=== PATIENT | female | born 1960 | race Caucasian/White ===

== ENCOUNTER 2016-09-26 15:12 | Emergency (ER) | payer MEDICARE, MEDICAID ==
[~2016-09-26] VITALS: Ht 162.6 cm; Wt 190.5 kg
[~2016-09-26 15:12] MED LIST: ACET-168 PO; ASP81TEC PO; CETI10CA PO; CETI10TA17 PO; CITA20TA12 PO; CLIN150C17 PO; CLON1TAB PO; CYCL5TAB PO; DILT120C82 PO; DILT180C67 PO; DIPH25TA65 PO; DIVA250T2 PO; DIVA500T PO; DULO30CA3 PO; FERR-65 PO; FERR325T5 PO; FLUT16SP22 NS; FLUT1DIS28 IH; FLUT1DIS28 INH; GABA-488 PO; GABA300C PO; ISM60TCR PO; LEVO750T39 PO; LORA2VIA3 IM; LVT.1T PO; MAG30ORA2 PO; MAGN400O7 PO; METH85CR TP; MIRA25TA PO; MIRA50TA PO; MORP-34 PO; MULT-974 PO; NST15C TOP; ONDN4T PO; OXC20TCR PO; OXCA300T PO; OXYC20TA54 PO; PANT40TA2 PO; POLY17PO6 PO; POTA20TA15 PO; RT-ALBUINH IH; RT-ALBUINH INH; SACC250C9 PO; SLMFT1E INH; SULF1TAB35 PO; TERB12CR3 TP; TORS10TA2 PO; TRAZ-28 PO; TRL300 PO; ZIPR60CA2 PO; ZIPR60CA20 PO
--- OUTSIDE RECORDS SUMMARY | 2016-09-26 15:18 | XMS REPORT | Continuity of Care Document ---
Author Author [facility] Organization [facility] Address Unknown Phone Unavailable Care Team Providers Care Cylinder Handler Name Role Phone No Pcp, Na PCP Unavailable Source Comments Some departments are not documenting in the electronic medical record. If you do not see the information that you expected, contact Release of Information in the Health Information Management department at [phone] for further assistance in locating additional records.[facility] Active Allergies and Adverse Reactions Allergen Noted Date Severity Reactions Comments Asendin 10/30/2012 UNKNOWN Clozaril 10/30/2012 UNKNOWN Haldol 10/30/2012 UNKNOWN Loxitane 10/30/2012 UNKNOWN Moxatag 10/30/2012 UNKNOWN Sulfa (Sulfonamide 10/30/2012 UNKNOWN Antibiotics) Current Medications Prescription Sig. Disp. Refills Start End Date Status Date isosorbide mononitrate SR Take 60 mg by mouth every Active (IMDUR) 60 mg tablet morning. Diltiazem HCl (MATZIM LA) Take 1 Tab by mouth Active 180 mg Tb24 daily. torsemide(+) (DEMADEX) 20 Take 20 mg by mouth Active mg tablet daily. pantoprazole DR Take 40 mg by mouth Active (PROTONIX) 40 mg tablet daily. levothyroxine (SYNTHROID) Take 125 mcg by mouth Active 125 mcg tablet daily. potassium chloride SR Take 20 mEq by mouth Active (K-DUR) 20 mEq tablet twice daily. divalproex ER (DEPAKOTE Take 3 Tabs by mouth at 90 Tab 0 02/02/20 Active ER) 500 mg tablet bedtime daily. 14 gabapentin (NEURONTIN) Take 1 Cap by mouth at 30 Cap 0 02/02/20 Active 300 mg capsule bedtime daily. 14 risperiDONE (RISPERDAL) 3 Take 2 Tabs by mouth at 60 Tab 0 02/02/20 Active mg tablet bedtime daily. 14 albuterol (PROAIR HFA) 90 Inhale 2 Puffs by mouth 3 Inhaler 0 Active mcg/actuation inhaler every 4 hours as needed [address] (CYMBALTA) Take 1 Cap by mouth 30 Cap 0 02/02/20 Active 60 mg capsule daily. 14 Active Problems Problem Noted Date Psychosis 01/08/2014 History of heart attack 10/30/2012 Social History Tobacco Use Types Packs/Day Years Used Date Former Smoker Cigarettes Alcohol Use Drinks/Week oz/Week Comments No Last Filed Vital Signs Vital Sign Reading Time Taken Blood Pressure 119/53 02/01/2014 9:00 AM CDT Pulse 86 02/01/2014 9:00 AM CDT Temperature 36.8 C (98.2 F) 02/01/2014 9:00 AM CDT Respiratory Rate - - Height 1.676 m (5' 6") 01/09/2014 1:25 AM CDT Weight 129.275 kg (285 lb) 01/08/2014 4:41 PM CDT Body Mass Index 46.02 01/08/2014 4:41 PM CDT Oxygen Saturation 95% 01/23/2014 9:30 PM CDT Plan of Care Health Maintenance Due Date Last Done Comments Physical (Comprehensive) 1966 Exam Pertussis Vaccine 1970 Tetanus Vaccine 02/26/1976 Cervical Cancer Screening 02/26/1980 Breast Cancer Screening 1999 Colorectal Cancer 2009 Screening Influenza Vaccine 04/29/2016 Results from Last 3 Months Not on file
[2016-09-26] MEDS ORDERED: LORazepam INJ 2 MG/ML (ATIVAN) VIAL IVP ONE (15:30)
[2016-09-26] MEDS ORDERED: LORazepam INJ 2 MG/ML (ATIVAN) VIAL ONE (15:32)
--- NOTE | 2016-09-26 15:32 | ED Chest Pain ---
General Stated Complaint: PNEUMONIA Source: patient Exam Limitations: no limitations History of Present Illness Time seen by provider: 15:31 Initial Comments To ER with central chest pain, hernia pain in the right lower abdomen and shortness of breath. She arrives per EMS from the living [facility]. The chest pain started yesterday. It has been constant since last night and she states that it is worsened by "stress" and "taking a dry off a cigarette". She knew that she was sick when she didn't want to eat and didn't feel like going outside to smoke she states. No fevers. No cough. Pain does not radiate. She arrives tearful and crying stating that she does not want to be in the shelter anymore. Timing/Duration: 1-2 days Severity/Quality: moderate Location: central Radiation: no radiation Activities at Onset: none ASA po COMMUNICATIONS ANALYST: Yes (324 mg was given by EMS) NTG SL COMMUNICATIONS ANALYST: No Associated Symptoms: No nausea/vomiting Allergies and Home Medications Allergies Coded Allergies: Sulfa (Sulfonamide Antibiotics) (Unverified Allergy, Unknown, 08/14/16) amoxapine (Unverified Allergy, Unknown, 01/23/16) amoxicillin (Unverified Allergy, Unknown, 01/03/16) amphetamine (Unverified Allergy, Unknown, 08/14/16) aripiprazole (Unverified Allergy, Unknown, 01/03/16) bupropion (Unverified Allergy, Unknown, 01/03/16) chlorpromazine (Unverified Allergy, Unknown, 01/03/16) clozapine (Unverified Allergy, Unknown, 01/03/16) dextroamphetamine (Unverified Allergy, Unknown, 01/03/16) dextromethorphan (Unverified Allergy, Unknown, 01/03/16) furosemide (Unverified Allergy, Unknown, 01/03/16) haloperidol (Unverified Allergy, Unknown, 01/03/16) latex (Unverified Allergy, Unknown, 01/03/16) lavender (Lavandula angustifolia) (Unverified Allergy, Unknown, 01/03/16) lithium (Unverified Allergy, Unknown, 01/03/16) loxapine (Unverified Allergy, Unknown, 01/03/16) meperidine (Unverified Allergy, Unknown, 01/03/16) olanzapine (Unverified Allergy, Unknown, 01/03/16) phentermine (Unverified Allergy, Unknown, 01/03/16) risperidone (Unverified Allergy, Unknown, 01/03/16) Home Medications Acetaminophen 500 Mg Tablet 1,000 MG PO Q4H PRN PRN PAIN/FEVER (Reported) Do not exceed 3 gm in 24 hours. Albuterol Sulfate 18 Gm Hfa.aer.ad 1 PUFF IH Q6H PRN PRN SHORTNESS OF BREATH ( Reported) Aspirin 81 Mg Tabec 81 MG PO DAILY (Reported) Cetirizine HCl 10 Mg Tablet 10 MG PO DAILY (Reported) Citalopram Hydrobromide 20 Mg Tablet 20 MG PO DAILY (Reported) Clonazepam 1 Mg Tablet 1 MG PO TID (Reported) Cyclobenzaprine HCl 5 Mg Tablet 5 MG PO BID (Reported) Diltiazem HCl 180 Mg Cap.er.24h 180 MG PO DAILY (Reported) Diphenhydramine HCl 25 Mg Tablet 25 MG PO Q6H PRN PRN ALLERGIES (Reported) Divalproex Sodium 250 Mg Tablet.dr 250 MG PO EVERY AFTERNOON (Reported) Divalproex Sodium 500 Mg Tablet.dr 500 MG PO BID (Reported) Duloxetine HCl 30 Mg Capsule.dr 30 MG PO HS (Reported) Duloxetine HCl 30 Mg Capsule.dr 60 MG PO DAILY (Reported) TAKES 2 (30MG) CAPSULES Ferrous Sulfate 325 Mg Tablet 325 MG PO TID (Reported) Fluticasone Propionate 16 Gm Felt.susp 2 SPRAYS NS DAILY (Reported) Fluticasone/Salmeterol 1 Each Blst.w.dev 1 PUFF INH BID (Reported) Gabapentin 300 Mg Capsule 300 MG PO 0800,1400 (Reported) Gabapentin 300 Mg Capsule 600 MG PO HS (Reported) TAKES 2 (300MG) CAPSULES Isosorbide Mononitrate 60 Mg Tab 60 MG PO DAILY (Reported) Levofloxacin 750 Mg Tablet #10 750 MG PO DAILY Prescribed by: MICHAEL ARENAS on 08/16/16 1404 Levothyroxine Sodium 100 Mcg Tab 100 MCG PO DAILY (Reported) Lorazepam 2 Mg/1 Ml Vial 2 MG IM Q4H PRN PRN ANXIETY (Reported) Mag Hydrox/Al Hydrox/Simeth 30 Ml Oral.susp 30 ML PO Q4H PRN PRN INDIGESTION ( Reported) Magnesium Hydroxide 400 Mg/5 Ml Oral.susp 30 ML PO DAILY PRN PRN CONSTIPATION ( Reported) Methyl Salicylate/Menthol 85 Gm Cream..g. TP Q4H PRN PRN PAIN (Reported) Mirabegron 50 Mg Tab.er.24h 50 MG PO HS (Reported) Morphine Sulfate 30 Mg Tablet.er 30 MG PO TID (Reported) Multivitamin 1 Each Tablet 1 TAB PO DAILY (Reported) Ondansetron HCl 4 Mg Tab 4 MG PO BID PRN PRN NAUSEA (Reported) Oxcarbazepine 300 Mg Tablet 300 MG PO BID (Reported) Pantoprazole Sodium 40 Mg Tablet.dr 40 MG PO BID (Reported) Polyethylene Glycol 3350 17 Gm Powd.pack 17 GM PO DAILY PRN PRN CONSTIPATION ( Reported) Potassium Chloride 20 Meq Tab.er.prt 20 MEQ PO DAILY (Reported) Saccharomyces Boulardii 250 Mg Capsule 250 MG PO DAILY (Reported) Torsemide 10 Mg Tablet 10 MG PO DAILY (Reported) Trazodone HCl 50 Mg Tablet 50 MG PO HS (Reported) Ziprasidone HCl 60 Mg Capsule 60 MG PO BID (Reported) Review of Systems Constitutional: see HPI EENTM: No Symptoms Reported Respiratory: No Symptoms Reported Cardiovascular: See HPI Chest Pain Gastrointestinal: See HPI Genitourinary: No Symptoms Reported Skin: no symptoms reported Psychiatric/Neurological: No Symptoms Reported Endocrine: No Symptoms Reported Hematologic/Lymphatic: No Symptoms Reported Past Mtotqti-Zedllb-Ebjbcq Hx Patient Social History Type Used: Cigarettes 2nd Hand Smoke Exposure: No Recent Hopitalizations: No Immunizations Up To Date Tetanus Booster (TDap): Unknown Date of Influenza Vaccine: May 29, 2015 Seasonal Allergies Seasonal Allergies: No Surgeries HX Surgeries: Yes (cervix) Surgeries: Tubal Ligation Respiratory Hx Respiratory Disorders: No Respiratory Disorders: COPD Cardiovascular Hx Cardiac Disorders: No Cardiac Disorders: Atrial Fibrillation, Heart Attack, Hypertension Neurological Hx Neurological Disorders: No Neurological Disorders: Stroke Reproductive System Hx Reproductive Disorders: No Sexually Transmitted Disease: No HIV/AIDS: No 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 Genitourinary Hx Genitourinary Disorders: Yes Genitourinary Disorders: Renal Failure Gastrointestinal Hx Gastrointestinal Disorders: No Musculoskeletal Hx Musculoskeletal Disorders: Yes (SPINAL STENOSIS) Musculoskeletal Disorders: Back Injury Endocrine Hx Endocrine Disorders: Yes Endocrine Disorders: Hypothyroidsim HEENT HX ENT Disorders: No Cancer Hx Cancer: Yes Cancer: Skin Psychosocial Hx Psychiatric Problems: Yes Behavioral Health Disorders: Anxiety, PTSD, Bipolar, Depression Integumentary HX Skin/Integumentary Disorder: No Blood Transfusions Hx Blood Disorders: No Adverse Reaction to a Blood Tr: No Family Medical History Significant Family History: No Pertinent Family Hx, Heart Disease, Cancer, Cerebral Aneurysm Physical Exam Vital Signs Vital Sign - Last 12Hours Capillary Refill : General Appearance: No Apparent Distress Anxious Obese HEENT: PERRL/EOMI TMs Normal Neck: Full Range of Motion Normal Inspection Respiratory: Lungs Clear Normal Breath Sounds No Accessory Muscle Use No Respiratory Distress Cardiovascular: Regular Rate, Rhythm Normal Peripheral Pulses Gastrointestinal: Normal Bowel Sounds Non Tender Soft Other (there is a large ventral abdominal hernia that is reducible) Extremity: Normal Capillary Refill Normal Inspection Neurologic/Psychiatric: Alert Oriented x3 No Motor/Sensory Deficits Skin: Normal Color Warm/Dry Progress/Results/Core Measures Results/Orders Lab Results Laboratory Tests Test 09/26/16 15:26 09/26/16 15:55 Range/Units Urine Bacteria MODERATE H /HPF Urine Bilirubin NEGATIVE NEGATIVE Urine Casts NONE /LPF Urine Clarity SLIGHTLY CLOUDY Urine Color YELLOW Urine Crystals NONE /LPF Urine Culture Indicated YES Urine Glucose (UA) NEGATIVE NEGATIVE Urine Ketones NEGATIVE NEGATIVE Urine Leukocyte Esterase 3+ H NEGATIVE Urine Mucus NEGATIVE /LPF Urine Nitrite NEGATIVE NEGATIVE Urine Protein NEGATIVE NEGATIVE Urine RBC RARE /HPF Urine RBC (Auto) 1+ H NEGATIVE Urine Specific [place] 1.005 L 1.016-1.022 Urine Squamous Epithelial Cells 5-10 /HPF Urine Urobilinogen NORMAL NORMAL MG/DL Urine WBC 10-25 H /HPF Urine pH 7 5-9 Alanine Aminotransferase (ALT/SGPT) 11 0-55 U/L Albumin 3.3 3.2-4.5 G/DL Alkaline Phosphatase 68 40-136 U/L Anion Gap 8 5-14 MMOL/L Aspartate Amino Transf (AST/SGOT) 15 5-34 U/L B-Type Natriuretic Peptide 58.8 <100.0 PG/ML BUN/Creatinine Ratio 22 Basophils # (Auto) 0.0 0.0-0.1 10^3/uL Basophils (%) (Auto) 0 0-10 % Blood Urea Nitrogen 16 7-18 MG/DL Calcium Level 8.5 8.5-10.1 MG/DL Carbon Dioxide Level 33 H 21-32 MMOL/L Chloride Level 97 L 98-107 MMOL/L Creatinine 0.72 0.60-1.30 MG/DL Eosinophils # (Auto) 0.2 0.0-0.3 10^3/uL Eosinophils (%) (Auto) 3 0-10 % Estimat Glomerular Filtration Rate > 60 Glucose Level 116 H 70-105 MG/DL Hematocrit 37 35-52 % Hemoglobin 11.5 11.5-16.0 G/DL Lymphocytes # (Auto) 1.3 1.0-4.0 X 10^3 Lymphocytes (%) (Auto) 18 12-44 % Mean Corpuscular Hemoglobin 31 25-34 PG Mean Corpuscular Hemoglobin Concent 31 L 32-36 G/DL Mean Corpuscular Volume 100 H 80-99 FL Mean Platelet Volume 8.8 7.4-10.4 FL Monocytes # (Auto) 0.8 0.0-1.0 X 10^3 Monocytes (%) (Auto) 11 0-12 % Neutrophils # (Auto) 4.8 1.8-7.8 X 10^3 Neutrophils (%) (Auto) 68 42-75 % Platelet Count 152 130-400 10^3/uL Potassium Level 4.4 3.6-5.0 MMOL/L Red Blood Count 3.68 L 4.35-5.85 10^6/uL Red Cell Distribution Width 14.5 10.0-14.5 % Sodium Level 138 135-145 MMOL/L Total Bilirubin 0.2 0.1-1.0 MG/DL Total Protein 7.5 6.4-8.2 G/DL Troponin I < 0.30 <0.30 NG/ML White Blood Count 7.1 4.3-11.0 10^3/uL My Orders Orders-YANA TOUSSAINT APRN Cbc With Automated Diff (09/26/16 15:29) Comprehensive Metabolic Panel (09/26/16 15:29) Ua Culture If Indicated (09/26/16 15:29) Ekg Tracing (09/26/16 15:29) Troponin I (09/26/16 15:29) Chest 1 View, Ap/Pa Only (09/26/16 15:29) BNP (09/26/16 15:29) Saline Lock/Iv-Start (09/26/16 15:29) Lorazepam Injection (Ativan Injection) (09/26/16 15:30) Urine Culture (09/26/16 15:26) Ceftriaxone Injection (Rocephin Injectio (09/26/16 16:15) Torsemide Tablet (Demadex Tablet) (09/26/16 16:30) Torsemide Tablet (Demadex Tablet) (09/26/16 16:45) Medications Given in ED Current Medications Medications Dose Ordered Sig/Flavio Route Start Time Stop Time Status Last Admin Dose Admin Lorazepam 0.5 mg ONCE ONCE IVP 09/26/16 15:30 09/26/16 15:32 DC 09/26/16 15:37 0.5 MG Vital Signs/I&O Vital Sign - Last 12Hours 09/26/16 09/26/16 15:15 15:15 Temp 97.8 Pulse 76 Resp 20 B/P 118/73 Pulse Ox 99 O2 Delivery Nasal Cannula Nasal Cannula O2 Flow Rate 3.5 3.5 Diagnostic Imaging Diagonstic Imaging: Xray Plain Films/CT/US/NM/MRI: chest Comments NAME: ALVARO PAGAN [facility] REC#: [id number] PT STATUS: REG ER : 1960 PHYSICIAN: YANA TOUSSAINT APRN ADMIT DATE: 09/26/16/ER Draft Date of Exam:09/26/16 CHEST 1 VIEW, AP/PA ONLY INDICATION: Shortness of air. TECHNIQUE: Single view chest, 4:02 p.m. CORRELATION STUDY: 08/14/2016. FINDINGS: Patient is rotated on this study. There is relatively stable cardiac enlargement. Vasculature, however, is increased from prior study with mild perihilar edema. Lung villagran are relatively clear. IMPRESSION: Vasculature is increased since prior study compatible with fluid overload or failure. Dictated on workstation # [id number] Dict: 09/26/16 1620 Trans: 09/26/16 1622 [facility] [id number] Interpreted by: COLE HORNER DO Electronically signed by: Departure Communication Progress Notes 1637-patient is much more relaxed after 0.5 mg IV Ativan. Impression Impression: Primary Impression: Urinary tract infection Qualified Code: N30.00 - Acute cystitis without hematuria Additional Impression: Anxiety Disposition: 01 HOME, SELF-CARE Condition: Stable Departure-Patient Inst. Decision time for Depature: 16:36 Referrals: FRANNY HUMPHREY MD (PCP/Family) Primary Care Physician Patient Instructions: Urinary Tract Infection, Adult (DC) Add. Discharge Instructions: 1. Return to ER for any concerns 2. Antibiotics as directed Scripts Cefuroxime Axetil (Cefuroxime)500 Mg [id number] Mg PO BID #10 TAB Prov:YANA TOUSSAINT APRN 09/26/16 YANA TOUSSAINT APRN Sep 26, 2016 15:32
[2016-09-26 15:36] LABS: BILIRUBIN,URINE NEGATIVE (NEGATIVE); KETONES,URINE NEGATIVE (NEGATIVE); LEUKOCYTE ESTERASE ,URINE 3+ (NEGATIVE); NITRITE,URINE NEGATIVE (NEGATIVE); PH,URINE 7 (5-9); PROTEIN,URINE NEGATIVE (NEGATIVE); UROBILINOGEN,URINE NORMAL (NORMAL)
[2016-09-26 16:02] LABS: BASOPHILS % (AUTO) 0 % (0-10); EOSINOPHILS # (AUTO) 0.2 10^3/uL (0.0-0.3); EOSINOPHILS % (AUTO) 3 % (0-10); LYMPHOCYTES # (AUTO) 1.3 X 10^3 (1.0-4.0); LYMPHOCYTES % (AUTO) 18 % (12-44); MEAN CORPUSCULAR HEMOGLOBIN 31 PG (25-34); MEAN CORPUSCULAR HGB CONC 31 G/DL (32-36); MEAN CORPUSCULAR VOLUME 100 FL (80-99); MEAN PLATELET VOLUME 8.8 FL (7.4-10.4); MONOCYTES # (AUTO) 0.8 X 10^3 (0.0-1.0); MONOCYTES % (AUTO) 11 % (0-12); NEUTROPHILS # (AUTO) 4.8 X 10^3 (1.8-7.8); NEUTROPHILS % (AUTO) 68 % (42-75); PLATELET COUNT 152 10^3/uL (130-400); RED BLOOD COUNT 3.68 10^6/uL (4.35-5.85); RED CELL DISTRIBUTION WIDTH 14.5 % (10.0-14.5); WHITE BLOOD COUNT 7.1 10^3/uL (4.3-11.0)
[2016-09-26] MEDS ORDERED: cefTRIAXone INJECTION 1,000 MG in NORMAL SALINE (BAXTER MINI) 50 ML IV ONE (16:15)
--- NOTE | 2016-09-26 16:22 | Diagnostic Imaging Report ---
INDICATION: Shortness of air. TECHNIQUE: Single view chest, 4:02 p.m. CORRELATION STUDY: 08/14/2016. FINDINGS: Patient is rotated on this study. There is relatively stable cardiac enlargement. Vasculature, however, is increased from prior study with mild perihilar edema. Lung villagran are relatively clear. IMPRESSION: Vasculature is increased since prior study compatible with fluid overload or failure. Dictated by: Dictated on workstation # [id number]
[2016-09-26 16:25] LABS: ALANINE AMINOTRANSFERASE 11 U/L (0-55); ALBUMIN 3.3 G/DL (3.2-4.5); ANION GAP 8 MMOL/L (5-14); ASPARTATE AMINO TRANSFERASE 15 U/L (5-34); BILIRUBIN,TOTAL 0.2 MG/DL (0.1-1.0); BLOOD UREA NITROGEN 16 MG/DL (7-18); BUN/CREATININE RATIO 22; CALCIUM 8.5 MG/DL (8.5-10.1); CARBON DIOXIDE 33 MMOL/L (21-32); CHLORIDE 97 MMOL/L (98-107); CREATININE SERUM 0.72 MG/DL (0.60-1.30); GFR ESTIMATED > 60; GLUCOSE 116 MG/DL (70-105); POTASSIUM 4.4 MMOL/L (3.6-5.0); SODIUM 138 MMOL/L (135-145); TOTAL PROTEIN 7.5 G/DL (6.4-8.2)
[2016-09-26 16:30] LABS: TROPONIN I < 0.30 NG/ML (<0.30)
[2016-09-26] MEDS ORDERED: TORSEMIDE 20 MG (DEMADEX) TAB PO ONE ×2 (16:30→16:45)
[2016-09-26] MEDS ORDERED: CEFU500T63 PO (16:37)
[2016-09-26 16:53] VITALS: BP 128/74
== END 2016-09-26 17:40 | disposition home or self-care (01) ==
LOC: EDUNIT# 15:12 → ER 15:14
DX: N39.0 Urinary tract infection, site not specified (principal); F41.9 Anxiety disorder, unspecified; K43.9 Ventral hernia without obstruction or gangrene; I10 Essential (primary) hypertension; I48.2 Chronic atrial fibrillation; R06.02 Shortness of breath; Z79.82 Long term (current) use of aspirin; Z79.899 Other long term (current) drug therapy
CPT/HCPCS: 36415; 71010; 80053; 81000; 83880; 84484; 85025; 87077; 87088; 87186; 93005; 96365; 96375

== ENCOUNTER 2017-02-04 09:36 | Emergency (ER) | payer MEDICARE, MEDICAID ==
[~2017-02-04] VITALS: Ht 162.6 cm; Wt 195.0 kg
[~2017-02-04 09:36] MED LIST changes: +CEFU500T63 PO
[2017-02-04 10:29] LABS: BILIRUBIN,URINE NEGATIVE (NEGATIVE); KETONES,URINE 2+ (NEGATIVE); LEUKOCYTE ESTERASE ,URINE 1+ (NEGATIVE); NITRITE,URINE NEGATIVE (NEGATIVE); PH,URINE 6 (5-9); PROTEIN,URINE 2+ (NEGATIVE); UROBILINOGEN,URINE NORMAL (NORMAL)
[2017-02-04 10:36] LABS: WBC,URINE 0-2 /HPF
[2017-02-04 10:40] LABS: BASOPHILS # (AUTO) 0.1 10^3/uL (0.0-0.1); BASOPHILS % (AUTO) 1 % (0-10); EOSINOPHILS # (AUTO) 0.2 10^3/uL (0.0-0.3); EOSINOPHILS % (AUTO) 3 % (0-10); LYMPHOCYTES # (AUTO) 1.7 X 10^3 (1.0-4.0); LYMPHOCYTES % (AUTO) 21 % (12-44); MEAN CORPUSCULAR HEMOGLOBIN 32 PG (25-34); MEAN CORPUSCULAR HGB CONC 32 G/DL (32-36); MEAN CORPUSCULAR VOLUME 102 FL (80-99); MEAN PLATELET VOLUME 9.4 FL (7.4-10.4); MONOCYTES # (AUTO) 0.7 X 10^3 (0.0-1.0); MONOCYTES % (AUTO) 9 % (0-12); NEUTROPHILS # (AUTO) 5.5 X 10^3 (1.8-7.8); NEUTROPHILS % (AUTO) 67 % (42-75); PLATELET COUNT 135 10^3/uL (130-400); RED BLOOD COUNT 4.35 10^6/uL (4.35-5.85); RED CELL DISTRIBUTION WIDTH 13.9 % (10.0-14.5); WHITE BLOOD COUNT 8.2 10^3/uL (4.3-11.0)
[2017-02-04 11:02] LABS: ALANINE AMINOTRANSFERASE 21 U/L (0-55); ALBUMIN 3.2 G/DL (3.2-4.5); ANION GAP 12 MMOL/L (5-14); ASPARTATE AMINO TRANSFERASE 23 U/L (5-34); BILIRUBIN,TOTAL 0.3 MG/DL (0.1-1.0); BLOOD UREA NITROGEN 10 MG/DL (7-18); BUN/CREATININE RATIO 15; CALCIUM 8.7 MG/DL (8.5-10.1); CARBON DIOXIDE 30 MMOL/L (21-32); CHLORIDE 98 MMOL/L (98-107); CREATININE SERUM 0.66 MG/DL (0.60-1.30); GFR ESTIMATED > 60; GLUCOSE 101 MG/DL (70-105); POTASSIUM 4.7 MMOL/L (3.6-5.0); SODIUM 140 MMOL/L (135-145); TOTAL PROTEIN 7.4 G/DL (6.4-8.2)
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
--- NOTE | 2017-02-04 12:25 | Diagnostic Imaging Report ---
PROCEDURE: CT abdomen and pelvis without contrast. TECHNIQUE: Multiple contiguous axial images were obtained through the abdomen and pelvis without the use of intravenous contrast. INDICATION: Abdominal pain. Hernia. FINDINGS: Please note that the patient is very large and although the iaygr-ho-wbys is opened to the maximum capacity, a small portion of the abdominal wall on the right and left flanks and including superficial portion of the right lower quadrant hernia are excluded from the [id number]-oz-glfd. The lung bases demonstrate minimal atelectasis. The liver is at low in density compatible with steatosis. There is suggestion of a noncalcified gallstones. This can be better evaluated with ultrasound. The spleen isn't enlarged. There is some motion artifact particularly involving the level of the pancreas with no definite abnormality. The adrenal glands appear unremarkable. The kidneys demonstrate no hydronephrosis and no urinary tract stones are evident. Some pelvic calcifications are noted compatible with phleboliths. There is a calcification in the upper right side aspect of the uterus presumably a calcified fibroid. There is a large right lower quadrant hernia with a relatively narrow neck compared to the size of the hernia. The defect size is 5.3 CM in the transverse plane and 6.8 CM craniocaudally. The hernia contains the right hepatic flexure and multiple small bowel loops without bowel obstruction. There is no bowel wall thickening, fluid or evidence of inflammatory changes to suggest strangulation. The appendix is normal. No significant free fluid or fluid collection in the abdomen or pelvis seen. The abdominal aorta is normal in caliber. The osseous structures demonstrate degenerative changes in the lower lumbar spine. IMPRESSION: 1. There is a large right lower quadrant hernia with a relatively narrow neck, containing small and large bowel loops with no CT evidence of obstruction or strangulation. 2. Suggestion of noncalcified gallstones. This can be better evaluated with gallbladder ultrasound as needed. Dictated by: Dictated on workstation # [id number]
[2017-02-04] MEDS ORDERED: POLY17PO6 PO (13:25)
[2017-02-04] MEDS ORDERED: BISA10EN RC (13:25)
[2017-02-04 13:57] VITALS: BP 152/90
== END 2017-02-04 13:57 | disposition home or self-care (01) ==
LOC: EDUNIT# 09:36 → ER 09:37
DX: K59.00 Constipation, unspecified (principal); R41.82 Altered mental status, unspecified; K46.9 Unspecified abdominal hernia without obstruction or gangrene; I48.91 Unspecified atrial fibrillation; I10 Essential (primary) hypertension; I25.2 Old myocardial infarction; Z86.73 Personal history of transient ischemic attack (TIA), and cerebral infarction without residual deficits; E03.9 Hypothyroidism, unspecified; N19 Unspecified kidney failure; Z86.74 Personal history of sudden cardiac arrest
CPT/HCPCS: 36415; 51701; 74176; 80053; 81000; 83605; 85025

== ENCOUNTER 2017-04-24 13:06 | Emergency (ER) | payer MEDICARE, MEDICAID ==
[~2017-04-24] VITALS: Ht 160 cm; Wt 186.0 kg
[~2017-04-24 13:06] MED LIST changes: +BISA10EN RC
[2017-04-24 14:15] VITALS: BP 143/86
[2017-04-24] MEDS ORDERED: NS IV 1000 ML 1,000 ML IV ONE (15:33)
--- NOTE | 2017-04-24 15:50 | ED Neurological Problem ---
General Chief Complaint: Neurological Problems Stated Complaint: UNRESPONSIVE Nursing Triage Note: TO ED PER EMS FROM [facility]. THEY REPORT SINCE 8A TODAY HAS HAD DECREASED LOC. AND ON ADMIT PATIENT APPEARS LETHARGIC,BUT ANSWERS SHE KNOWS SHE IS AT [facility]. Nursing Sepsis Screen: No Definite Risk Source: patient Exam Limitations: other (difficult to keep focused. poor historian.) History of Present Illness Time seen by provider: 15:45 Initial Comments 57-year-old female patient presents to the emergency Department with reports of medical electronic staff noting decreased level of consciousness beginning at 0800. Patient was brought to the emergency department via EMS. Patient denies knowing why she is at via [facility]. Patient is a poor historian. Patient repeatedly asks where her friend Sanjana is. States she is hungry and thirst. "I want something to eat now!" Timing/Duration: other (0800 this AM. Resolved.) Associated Symptoms: denies symptoms Allergies and Home Medications Allergies Coded Allergies: Sulfa (Sulfonamide Antibiotics) (Unverified Allergy, Unknown, 08/14/16) amoxapine (Unverified Allergy, Unknown, 01/23/16) amoxicillin (Unverified Allergy, Unknown, 01/03/16) amphetamine (Unverified Allergy, Unknown, 08/14/16) aripiprazole (Unverified Allergy, Unknown, 01/03/16) bupropion (Unverified Allergy, Unknown, 01/03/16) chlorpromazine (Unverified Allergy, Unknown, 01/03/16) clozapine (Unverified Allergy, Unknown, 01/03/16) dextroamphetamine (Unverified Allergy, Unknown, 01/03/16) dextromethorphan (Unverified Allergy, Unknown, 01/03/16) furosemide (Unverified Allergy, Unknown, 01/03/16) haloperidol (Unverified Allergy, Unknown, 01/03/16) latex (Unverified Allergy, Unknown, 01/03/16) lavender (Lavandula angustifolia) (Unverified Allergy, Unknown, 01/03/16) lithium (Unverified Allergy, Unknown, 01/03/16) loxapine (Unverified Allergy, Unknown, 01/03/16) meperidine (Unverified Allergy, Unknown, 01/03/16) olanzapine (Unverified Allergy, Unknown, 01/03/16) phentermine (Unverified Allergy, Unknown, 01/03/16) risperidone (Unverified Allergy, Unknown, 01/03/16) Home Medications Acetaminophen 500 Mg Tablet, 1,000 MG PO Q4H PRN for PAIN/FEVER, (Reported) Do not exceed 3 gm in 24 hours. Albuterol Sulfate 18 Gm Hfa.aer.ad, 1 PUFF IH Q6H PRN for SHORTNESS OF BREATH, ( Reported) Aspirin 81 Mg Tabec, 81 MG PO DAILY, (Reported) Bisacodyl 10 Mg/30 Ml Enema, 10 MG RC DAILY PRN, #10 Ref 0 Prescribed by: CAROL FLOR on 02/04/17 1325 Cefuroxime Axetil 500 Mg Tablet, 500 MG PO BID, #10 Prescribed by: YANA TOUSSAINT on 09/26/16 1637 Cetirizine HCl 10 Mg Tablet, 10 MG PO DAILY, (Reported) Citalopram Hydrobromide 20 Mg Tablet, 20 MG PO DAILY, (Reported) Clonazepam 1 Mg Tablet, 1 MG PO TID, (Reported) Cyclobenzaprine HCl 5 Mg Tablet, 5 MG PO BID, (Reported) Diltiazem HCl 180 Mg Cap.er.24h, 180 MG PO DAILY, (Reported) Diphenhydramine HCl 25 Mg Tablet, 25 MG PO Q6H PRN for ALLERGIES, (Reported) Divalproex Sodium 250 Mg Tablet.dr, 250 MG PO EVERY AFTERNOON, (Reported) Divalproex Sodium 500 Mg Tablet.dr, 500 MG PO BID, (Reported) Duloxetine HCl 30 Mg Capsule.dr, 30 MG PO HS, (Reported) Duloxetine HCl 30 Mg Capsule.dr, 60 MG PO DAILY, (Reported) TAKES 2 (30MG) CAPSULES Ferrous Sulfate 325 Mg Tablet, 325 MG PO TID, (Reported) Fluticasone Propionate 16 Gm Douglas.susp, 2 SPRAYS NS DAILY, (Reported) Fluticasone/Salmeterol 1 Each Blst.w.dev, 1 PUFF INH BID, (Reported) Gabapentin 300 Mg Capsule, 300 MG PO 0800,1400, (Reported) Gabapentin 300 Mg Capsule, 600 MG PO HS, (Reported) TAKES 2 (300MG) CAPSULES Isosorbide Mononitrate 60 Mg Tab, 60 MG PO DAILY, (Reported) Levofloxacin 750 Mg Tablet, 750 MG PO DAILY, #10 Ref 0 Prescribed by: MICHAEL ARENAS on 08/16/16 1404 Levothyroxine Sodium 100 Mcg Tab, 100 MCG PO DAILY, (Reported) Lorazepam 2 Mg/1 Ml Vial, 2 MG IM Q4H PRN for ANXIETY, (Reported) Mag Hydrox/Al Hydrox/Simeth 30 Ml Oral.susp, 30 ML PO Q4H PRN for INDIGESTION, ( Reported) Magnesium Hydroxide 400 Mg/5 Ml Oral.susp, 30 ML PO DAILY PRN for CONSTIPATION, (Reported) Methyl Salicylate/Menthol 85 Gm Cream..g., TP Q4H PRN for PAIN, (Reported) Mirabegron 50 Mg Tab.er.24h, 50 MG PO HS, (Reported) Morphine Sulfate 30 Mg Tablet.er, 30 MG PO TID, (Reported) Multivitamin 1 Each Tablet, 1 TAB PO DAILY, (Reported) Ondansetron HCl 4 Mg Tab, 4 MG PO BID PRN for NAUSEA, (Reported) Oxcarbazepine 300 Mg Tablet, 300 MG PO BID, (Reported) Pantoprazole Sodium 40 Mg Tablet.dr, 40 MG PO BID, (Reported) Polyethylene Glycol 3350 17 Gm Powd.pack, 17 GM PO DAILY PRN for CONSTIPATION, ( Reported) Polyethylene Glycol 3350 17 Gm Powd.pack, 17 GM PO QID for 7 Days, #1 Ref 0 Prescribed by: CAROL FLOR on 02/04/17 1325 Potassium Chloride 20 Meq Tab.er.prt, 20 MEQ PO DAILY, (Reported) Saccharomyces Boulardii 250 Mg Capsule, 250 MG PO DAILY, (Reported) Torsemide 10 Mg Tablet, 10 MG PO DAILY, (Reported) Trazodone HCl 50 Mg Tablet, 50 MG PO HS, (Reported) Ziprasidone HCl 60 Mg Capsule, 60 MG PO BID, (Reported) Constitutional: No chills, No dizziness, No fever, No malaise Eyes: No Symptoms Reported Ears, Nose, Mouth, Throat: no symptoms reported Respiratory: No cough, No phlegm, No short of breath Cardiovascular: No chest pain, No palpitations Gastrointestinal: No abdominal pain, No constipation, No diarrhea, No loss of appetite, No nausea, No vomiting Genitourinary: no symptoms reported Musculoskeletal: no symptoms reported Skin: no symptoms reported Psychiatric/Neurological: See HPI, Denies Cognitive Dysfunction, Denies Headache, Denies Numbness, Denies Pet[place] Mal Seizures, Denies Tonic Clonic Seizures, Denies Unable to Move Lower Ext, Denies Unable to Move Upper Ext, Denies Weakness All Other Systems Reviewed Negative Unless Noted: Yes (Negative excepted noted.) Past Yzalbpx-Dafnrx-Xryqos Hx Patient Social History Alcohol Use: Denies Use Recreational Drug Use: No Type Used: Cigarettes Former Smoker, Quit: Aug 29, 2016 2nd Hand Smoke Exposure: No Recent Foreign Travel: No Contact w/Someone Who Travel: No Recent Infectious Disease Expo: No Recent Hopitalizations: No Immunizations Up To Date Tetanus Booster (TDap): Unknown Date of Influenza Vaccine: May 29, 2016 Seasonal Allergies Seasonal Allergies: No Surgeries History of Surgeries: Yes (cervix) Surgeries: Tubal Ligation Respiratory History of Respiratory Disorde: No Respiratory Disorders: COPD Currently Using CPAP: No (supposed to but doesn't) Cardiovascular History of Cardiac Disorders: No (2 Mi's) Cardiac Disorders: Atrial Fibrillation, Heart Attack, Hypertension Neurological History of Neurological Disord: No Neurological Disorders: Stroke Reproductive System Hx Reproductive Disorders: No Sexually Transmitted Disease: No HIV/AIDS: 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 Genitourinary Genitourinary Disorders: Renal Failure Gastrointestinal History of Gastrointestinal Di: No Musculoskeletal History of Musculoskeletal Dis: Yes (SPINAL STENOSIS) Musculoskeletal Disorders: Back Injury Endocrine History of Endocrine Disorders: Yes Endocrine Disorders: Hypothyroidsim Cancer History of Cancer: Yes Cancer: Skin Psychosocial History of Psychiatric Problem: Yes Behavioral Health Disorders: Anxiety, PTSD, Bipolar, Depression Integumentary History of Skin or Integumenta: No Blood Transfusions History of Blood Disorders: No Adverse Reaction to a Blood Tr: No Reviewed Nursing Assessment Reviewed/Agree w Nursing PMH: Yes Family Medical History Significant Family History: No Pertinent Family Hx, Heart Disease, Cancer, Cerebral Aneurysm Physical Exam Vital Signs Vital Sign - Last 12Hours 04/24/17 04/24/17 13:06 19:02 Temp 97.5 Pulse 74 Resp 18 B/P (MAP) 156/100 Pulse Ox 95 O2 Delivery Nasal Cannula O2 Flow Rate 2.00 Capillary Refill : Less Than 3 Seconds General Appearance: WD/WN, no apparent distress, other (morbid obesity.) HEENT: PERRL/EOMI, normal ENT inspection, TMs normal, pharynx normal, other ( oral mucosa dry) Neck: supple, normal inspection Respiratory: lungs clear, normal breath sounds, no respiratory distress, no accessory muscle use Cardiovascular: normal peripheral pulses, regular rate, rhythm, no murmur Gastrointestinal: normal bowel sounds, non tender, soft, No distended, hernia ( large non-reducible right upper quadrant hernia noted (per records exam is similar to previous exams). no discoloration or erythema. ) Extremities: no calf tenderness, pedal edema (3+ pedal edema bilaterally with venous stasis changes of the bilateral distal LE's) Neurologic/Psychiatric: alert, normal mood/affect, other (oriented to person and place. NH staff reports this is similar to usual state.) Crainal Nerves: normal hearing, normal speech, PERRL Coordination/Gait: other (patient is able to grasp the call button and remote control. She is able to push the buttons to change the TV channel without difficulty. unable to stand or perform romberg test due to morbid obesity and is bed/wheelchair ridden.) Motor/Sensory: no motor deficit, no sensory deficit, no pronator drift Skin: normal color (normal color with the exception of venous stasis changes of the distal BLE.), warm/dry Progress/Results/Core Measures Results/Orders Lab Results Laboratory Tests Test 04/24/17 16:12 04/24/17 18:00 Range/Units White Blood Count 7.0 4.3-11.0 10^3/uL Red Blood Count 4.29 L 4.35-5.85 10^6/uL Hemoglobin 14.1 11.5-16.0 G/DL Hematocrit 44 35-52 % Mean Corpuscular Volume 102 H 80-99 FL Mean Corpuscular Hemoglobin 33 25-34 PG Mean Corpuscular Hemoglobin Concent 32 32-36 G/DL Red Cell Distribution Width 13.4 10.0-14.5 % Platelet Count 173 130-400 10^3/uL Mean Platelet Volume 8.9 7.4-10.4 FL Neutrophils (%) (Auto) 55 42-75 % Lymphocytes (%) (Auto) 30 12-44 % Monocytes (%) (Auto) 11 0-12 % Eosinophils (%) (Auto) 4 0-10 % Basophils (%) (Auto) 0 0-10 % Neutrophils # (Auto) 3.9 1.8-7.8 X 10^3 Lymphocytes # (Auto) 2.1 1.0-4.0 X 10^3 Monocytes # (Auto) 0.7 0.0-1.0 X 10^3 Eosinophils # (Auto) 0.3 0.0-0.3 10^3/uL Basophils # (Auto) 0.0 0.0-0.1 10^3/uL Sodium Level 141 135-145 MMOL/L Potassium Level 4.5 3.6-5.0 MMOL/L Chloride Level 100 98-107 MMOL/L Carbon Dioxide Level 27 21-32 MMOL/L Anion Gap 14 5-14 MMOL/L Blood Urea Nitrogen 16 7-18 MG/DL Creatinine 0.73 0.60-1.30 MG/DL Estimat Glomerular Filtration Rate > 60 BUN/Creatinine Ratio 22 Glucose Level 100 70-105 MG/DL Calcium Level 9.2 8.5-10.1 MG/DL Total Bilirubin 0.2 0.1-1.0 MG/DL Aspartate Amino Transf (AST/SGOT) 14 5-34 U/L Alanine Aminotransferase (ALT/SGPT) 13 0-55 U/L Alkaline Phosphatase 94 40-136 U/L Total Protein 7.8 6.4-8.2 GM/DL Albumin 3.8 3.2-4.5 GM/DL TSH [place] Testing 1.55 0.35-4.94 UIU/ML Valproic Acid (Depakene) Level 64.6 50.0-100.0 UG/ML Urine Color YELLOW Urine Clarity CLEAR Urine pH 6 5-9 Urine Specific Scenic 1.025 H 1.016-1.022 Urine Protein 1+ H NEGATIVE Urine Glucose (UA) NEGATIVE NEGATIVE Urine Ketones 3+ H NEGATIVE Urine Nitrite NEGATIVE NEGATIVE Urine Bilirubin NEGATIVE NEGATIVE Urine Urobilinogen NORMAL NORMAL MG/DL Urine Leukocyte Esterase NEGATIVE NEGATIVE Urine RBC (Auto) NEGATIVE NEGATIVE Urine RBC NONE /HPF Urine WBC NONE /HPF Urine Squamous Epithelial Cells 10-25 H /HPF Urine Crystals NONE /LPF Urine Bacteria NEGATIVE /HPF Urine Casts NONE /LPF Urine Mucus MODERATE H /LPF Urine Culture Indicated NO My Orders Orders - KESHAV RAMIREZ Cbc With Automated Diff (04/24/17 15:33) Comprehensive Metabolic Panel (04/24/17 15:33) Thyroid Analyzer (04/24/17 15:33) Ua Culture If Indicated (04/24/17 15:33) Saline Lock/Iv-Start (04/24/17 15:33) Valproic Acid (04/24/17 15:33) Ns Iv 1000 Ml (Sodium Chloride 0.9%) (04/24/17 15:33) Ct Head Wo (04/24/17 15:36) Chest 1 View, Ap/Pa Only (04/24/17 15:36) Medications Given in ED Vital Signs/I&O Vital Sign - Last 12Hours 04/24/17 04/24/17 04/24/17 13:06 14:15 19:02 Temp 97.5 Pulse 74 71 69 Resp 18 18 18 B/P (MAP) 156/100 143/86 Pulse Ox 95 98 98 O2 Delivery Nasal Cannula Nasal Cannula Nasal Cannula O2 Flow Rate 2.00 Blood Pressure Mean: 105 Diagnostic Imaging Diagonstic Imaging: CT Plain Films/CT/US/NM/MRI: head Comments The ventricles are normal in size, shape and position. There is no acute parenchymal hemorrhage, edema or mass. There is no extra-axial mass or hemorrhage. Impression: No acute abnormality is seen. Dictated by: Dictated on workstation # [id number] Reviewed: Reviewed by Me (radiology report reviewed by me) Diagonstic Imaging: Xray Plain Films/CT/US/NM/MRI: chest Comments Upright portable chest shows mild cardiomegaly with normal vascularity. The lungs are clear. There is no effusion or pneumothorax. Impression: No acute abnormality is seen with no change from 09/26/16. Dictated by: Dictated on workstation # [id number] Reviewed: Reviewed by Me (radiology report reviewed by me) Departure Communication Progress Notes Patient seen and evaluated. Labs obtained as well as chest x-ray and CT head. Patient was given 1 L of normal saline. Plan for discharge to home with follow- up as an outpatient with Dr. Humphrey. Patient case discussed with Dr. Maurer, he agrees with the plan of care. Impression Impression: Primary Impression: Volume depletion Disposition: 03 SNF Condition: Stable Departure-Patient Inst. Decision time for Depature: 18:41 Referrals: FRANNY HUMPHREY MD (PCP/Family) Primary Care Physician Patient Instructions: Dehydration, Adult (DC) Add. Discharge Instructions: All discharge instructions reviewed with patient and/or family. Voiced understanding. Continue usual medications. Push fluids. Continue usual diet and orders. Follow-up with Dr. Humphrey for recheck this week. Call Tuesday morning for appointment. Return to the emergency department for worsened symptoms, headache, changes in behavior, weakness, facial drooping, or any other concerns. KESHAV RAMIREZ Apr 24, 2017 15:49
[2017-04-24 16:19] LABS: BASOPHILS % (AUTO) 0 % (0-10); EOSINOPHILS # (AUTO) 0.3 10^3/uL (0.0-0.3); EOSINOPHILS % (AUTO) 4 % (0-10); LYMPHOCYTES # (AUTO) 2.1 X 10^3 (1.0-4.0); LYMPHOCYTES % (AUTO) 30 % (12-44); MEAN CORPUSCULAR HEMOGLOBIN 33 PG (25-34); MEAN CORPUSCULAR HGB CONC 32 G/DL (32-36); MEAN CORPUSCULAR VOLUME 102 FL (80-99); MEAN PLATELET VOLUME 8.9 FL (7.4-10.4); MONOCYTES # (AUTO) 0.7 X 10^3 (0.0-1.0); MONOCYTES % (AUTO) 11 % (0-12); NEUTROPHILS # (AUTO) 3.9 X 10^3 (1.8-7.8); NEUTROPHILS % (AUTO) 55 % (42-75); PLATELET COUNT 173 10^3/uL (130-400); RED BLOOD COUNT 4.29 10^6/uL (4.35-5.85); RED CELL DISTRIBUTION WIDTH 13.4 % (10.0-14.5)
[2017-04-24 16:36] LABS: ALANINE AMINOTRANSFERASE 13 U/L (0-55); ALBUMIN 3.8 GM/DL (3.2-4.5); ANION GAP 14 MMOL/L (5-14); ASPARTATE AMINO TRANSFERASE 14 U/L (5-34); BILIRUBIN,TOTAL 0.2 MG/DL (0.1-1.0); BLOOD UREA NITROGEN 16 MG/DL (7-18); BUN/CREATININE RATIO 22; CALCIUM 9.2 MG/DL (8.5-10.1); CARBON DIOXIDE 27 MMOL/L (21-32); CHLORIDE 100 MMOL/L (98-107); CREATININE SERUM 0.73 MG/DL (0.60-1.30); GFR ESTIMATED > 60; GLUCOSE 100 MG/DL (70-105); POTASSIUM 4.5 MMOL/L (3.6-5.0); SODIUM 141 MMOL/L (135-145); TOTAL PROTEIN 7.8 GM/DL (6.4-8.2)
[2017-04-24 16:56] LABS: VALPROIC ACID 64.6 UG/ML (50.0-100.0)
--- NOTE | 2017-04-24 17:02 | Diagnostic Imaging Report ---
PROCEDURE: CT head without contrast. TECHNIQUE: Multiple contiguous axial images were obtained through the brain without the use of intravenous contrast. INDICATION: Headache. Decreased level consciousness The ventricles are normal in size, shape and position. There is no acute parenchymal hemorrhage, edema or mass. There is no extra-axial mass or hemorrhage. Impression: No acute abnormality is seen. Dictated by: Dictated on workstation # [id number]
--- NOTE | 2017-04-24 17:02 | Diagnostic Imaging Report ---
Indication: Short of air Upright portable chest shows mild cardiomegaly with normal vascularity. The lungs are clear. There is no effusion or pneumothorax. Impression: No acute abnormality is seen with no change from 09/26/16. Dictated by: Dictated on workstation # [id number]
[2017-04-24 18:12] LABS: BILIRUBIN,URINE NEGATIVE (NEGATIVE); KETONES,URINE 3+ (NEGATIVE); LEUKOCYTE ESTERASE ,URINE NEGATIVE (NEGATIVE); NITRITE,URINE NEGATIVE (NEGATIVE); PH,URINE 6 (5-9); PROTEIN,URINE 1+ (NEGATIVE); UROBILINOGEN,URINE NORMAL (NORMAL)
[2017-04-24 19:02] VITALS: BP 143/83
--- OUTSIDE RECORDS SUMMARY | 2017-04-25 11:28 | XMS REPORT | Clinical Summary ---
Author Author [facility] Organization [facility] Address Unknown Phone Unavailable Care Team Providers Care Crop Roller Name Role Phone PCP Unavailable Source Comments Some departments are not documenting in the electronic medical record. If you do not see the information that you expected, contact Release of Information in the Health Information Management department at [phone] for further assistance in locating additional records.[facility] Allergies Active Allergy Reactions Severity Noted Date Comments Asendin UNKNOWN 10/30/2012 Clozapine UNKNOWN 10/30/2012 Haloperidol Lactate UNKNOWN 10/30/2012 Loxapine Succinate UNKNOWN 10/30/2012 Amoxicillin UNKNOWN 10/30/2012 Sulfa (Sulfonamide UNKNOWN 10/30/2012 Antibiotics) Current Medications Prescription Sig. Disp. Refills [...] Tabs by mouth at 60 Tab 0 06/06/20 Active mg tablet bedtime daily. 14 albuterol (PROAIR HFA) 90 Inhale 2 Puffs by mouth 3 Inhaler 0 Active mcg/actuation inhaler every 4 hours as needed [address] (CYMBALTA) Take 1 Cap by mouth 30 Cap 0 02/02/20 Active 60 mg capsule daily. 14 Active Problems Problem Noted Date Psychosis 01/08/2014 History of heart attack 10/30/2012 Family History Medical History Relation Name Comments Hypertension Brother Hypertension Brother Hypertension Brother Coronary Artery Disease Father Stroke Father Coronary Artery Disease Mother Relation Name Status Comments Brother Alive Brother Alive Brother Alive Father Mother Sister as a child Sister Alive Sister Alive Sister Alive Sister Alive Social History Tobacco Use Types Packs/Day Years Used Date Former Smoker Cigarettes Alcohol Use Drinks/Week oz/Week Comments No Sex Assigned at Date Recorded Not on file Last Filed Vital Signs Vital Sign Reading Time Taken Blood Pressure 119/53 02/01/2014 9:00 AM CDT Pulse 86 02/01/2014 9:00 AM CDT Temperature 36.8 C (98.2 F) 02/01/2014 9:00 AM CDT Respiratory Rate - - Oxygen Saturation 95% 01/23/2014 9:30 PM CDT Inhaled Oxygen - - Concentration Weight 129.3 kg (285 lb) 01/08/2014 4:41 PM CDT Height 167.6 cm (5' 6") 01/09/2014 1:25 AM CDT Body Mass Index 46 01/08/2014 4:41 PM CDT Plan of Treatment Health Maintenance Due Date Last Done Comments HEPATITIS C SCREENING 1959 PHYSICAL (COMPREHENSIVE) 1966 EXAM PERTUSSIS VACCINE 1970 TETANUS VACCINE 02/26/1976 CERVICAL CANCER SCREENING 1989 BREAST CANCER SCREENING 1999 COLORECTAL CANCER 2009 SCREENING INFLUENZA VACCINE 04/29/2017 Results Not on filefrom Last 3 Months
== END 2017-04-24 19:01 ==
LOC: EDUNIT# 13:06 → ER 13:07
DX: E86.9 Volume depletion, unspecified (principal); I48.91 Unspecified atrial fibrillation; E03.9 Hypothyroidism, unspecified; F41.9 Anxiety disorder, unspecified; F43.10 Post-traumatic stress disorder, unspecified; F31.9 Bipolar disorder, unspecified; I25.2 Old myocardial infarction; I10 Essential (primary) hypertension; J44.9 Chronic obstructive pulmonary disease, unspecified; Z79.82 Long term (current) use of aspirin; Z86.73 Personal history of transient ischemic attack (TIA), and cerebral infarction without residual deficits; Z87.891 Personal history of nicotine dependence; Z98.51 Tubal ligation status
CPT/HCPCS: 36415; 51701; 70450; 71010; 80053; 80164; 81000; 84443; 85025; 96360

== ENCOUNTER → 2017-09-05 | Outpatient (CLI) | payer MEDICARE, MEDICAID ==
--- NOTE | 2017-09-05 14:05 | Diagnostic Imaging Report ---
INDICATION: Screening breast ultrasound as the patient could not tolerate mammography. TECHNIQUE: Multiple Real-time grayscale images were obtained in all 4 quadrants and the retroareolar regions of both breasts. FINDINGS: There is no evidence of a discrete underlying solid or cystic mass in either breast. Both breasts demonstrate relatively heterogeneous underlying fibroglandular tissue. IMPRESSION: Negative bilateral breast ultrasound. Dictated by: Dictated on workstation # [id number]
== END ==
LOC: RAD 13:03
PROVIDERS: ATTEND Nurse Practitioner
DX: N64.4 Mastodynia (principal)

== ENCOUNTER 2017-10-07 20:52 | Inpatient (IN) | payer MEDICARE, MEDICAID ==
[~2017-10-07] VITALS: Ht 160 cm; Wt 186.0 kg
[~2017-10-07 20:52] MED LIST changes: -FLUT16SP22 NS; +FLUT16SP22 NSEACH
[2017-10-07] MEDS ORDERED: NS IV 1000 ML 1,000 ML IV ONE ×2 (21:22→22:29)
[2017-10-07] MEDS ORDERED: CEFEPIME INJECTION 2,000 MG in NS (IVPB) 50 ML IV ONE (21:30)
[2017-10-07] MEDS ORDERED: ACETAMINOPHEN 500 MG TAB (TYLENOL) PO PRN (21:30)
[2017-10-07 21:36] LABS: BASOPHILS % (AUTO) 0 % (0-10); EOSINOPHILS % (AUTO) 0 % (0-10); HEMATOCRIT 39 % (35-52); HEMOGLOBIN 13.5 G/DL (11.5-16.0); LYMPHOCYTES # (AUTO) 2.7 X 10^3 (1.0-4.0); LYMPHOCYTES % (AUTO) 16 % (12-44); MEAN CORPUSCULAR HEMOGLOBIN 35 PG (25-34); MEAN CORPUSCULAR HGB CONC 34 G/DL (32-36); MEAN CORPUSCULAR VOLUME 101 FL (80-99); MEAN PLATELET VOLUME 9.6 FL (7.4-10.4); MONOCYTES # (AUTO) 2.3 X 10^3 (0.0-1.0); MONOCYTES % (AUTO) 14 % (0-12); NEUTROPHILS # (AUTO) 12.1 X 10^3 (1.8-7.8); NEUTROPHILS % (AUTO) 71 % (42-75); PLATELET COUNT 150 10^3/uL (130-400); RED BLOOD COUNT 3.91 10^6/uL (4.35-5.85); RED CELL DISTRIBUTION WIDTH 12.5 % (10.0-14.5); WHITE BLOOD COUNT 17.2 10^3/uL (4.3-11.0)
[2017-10-07 21:38] LABS: INR 1.1 (0.8-1.4); PROTHROMBIN TIME PATIENT 14.1 SEC (12.2-14.7)
[2017-10-07 21:48] LABS: BUN/CREATININE RATIO 17; CARBON DIOXIDE 28 MMOL/L (21-32); CHLORIDE 95 MMOL/L (98-107); CREATININE SERUM 0.71 MG/DL (0.60-1.30); POTASSIUM 3.9 MMOL/L (3.6-5.0); SODIUM 137 MMOL/L (135-145)
[2017-10-07 21:49] LABS: ALANINE AMINOTRANSFERASE 59 U/L (0-55); ALBUMIN 3.4 GM/DL (3.2-4.5); ALKALINE PHOSPHATASE 112 U/L (40-136); BILIRUBIN,TOTAL 0.4 MG/DL (0.1-1.0); CALCIUM 9.4 MG/DL (8.5-10.1); GFR ESTIMATED > 60; GLUCOSE 159 MG/DL (70-105); TOTAL PROTEIN 7.6 GM/DL (6.4-8.2)
--- NOTE | 2017-10-07 22:03 | ED Abdominal Pain ---
General Chief Complaint: Abdominal/GI Problems Stated Complaint: FEVER Nursing Triage Note: ABDOMINAL PAIN, GALL STONES, FEVER Sepsis Screen: No Definite Risk Source of Information: Patient, RN/MD (Frank Ornelas APRN) Exam Limitations: Other (poor historian) History of Present Illness Date Seen by Provider: Oct 07, 2017 Time Seen by Provider: 20:54 Initial Comments 57-year-old female patient presents to the emergency Department with reports of right upper quadrant pain, fever, and an outpatient ultrasound from today showing gallstones, an enlarged gallbladder, and a positive Delong sign. When patient spiked a fever, staff reportedly was concerned about patient being septic and acute cholecystitis. Patient reportedly has had a decreased appetite today. Patient does have a chronic large ventral hernia. Timing/Duration: 1-2 Days, Getting Worse Severity/Quality: Aching, Sharp Location: RUQ Radiation: No Radiation Activities at Onset: None Modifying Factors: Worsens With Eating, Worsens With Movement, Worsens With Palpation Allergies and Home Medications Allergies Coded Allergies: Sulfa (Sulfonamide Antibiotics) (Unverified Allergy, Unknown, 08/14/16) amoxapine (Unverified Allergy, Unknown, 01/23/16) amoxicillin (Unverified Allergy, Unknown, 01/03/16) amphetamine (Unverified Allergy, Unknown, 08/14/16) aripiprazole (Unverified Allergy, Unknown, 01/03/16) bupropion (Unverified Allergy, Unknown, 01/03/16) chlorpromazine (Unverified Allergy, Unknown, 01/03/16) clozapine (Unverified Allergy, Unknown, 01/03/16) dextroamphetamine (Unverified Allergy, Unknown, 01/03/16) dextromethorphan (Unverified Allergy, Unknown, 01/03/16) furosemide (Unverified Allergy, Unknown, 01/03/16) haloperidol (Unverified Allergy, Unknown, 01/03/16) latex (Unverified Allergy, Unknown, 01/03/16) lavender (Lavandula angustifolia) (Unverified Allergy, Unknown, 01/03/16) lithium (Unverified Allergy, Unknown, 01/03/16) loxapine (Unverified Allergy, Unknown, 01/03/16) meperidine (Unverified Allergy, Unknown, 01/03/16) olanzapine (Unverified Allergy, Unknown, 01/03/16) phentermine (Unverified Allergy, Unknown, 01/03/16) risperidone (Unverified Allergy, Unknown, 01/03/16) Home Medications Acetaminophen 500 Mg Tablet, 1,000 MG PO Q4H PRN for PAIN/FEVER, (Reported) Do not exceed 3 gm in 24 hours. Albuterol Sulfate 18 Gm Hfa.aer.ad, 1 PUFF IH Q6H PRN for SHORTNESS OF BREATH, ( Reported) Aspirin 81 Mg Tabec, 81 MG PO DAILY, (Reported) Bisacodyl 10 Mg/30 Ml Enema, 10 MG RC DAILY PRN, #10 Ref 0 Prescribed by: CAROL FLOR on 02/04/17 1325 Cefuroxime Axetil 500 Mg Tablet, 500 MG PO BID, #10 Prescribed by: YANA TOUSSAINT on 09/26/16 1637 Cetirizine HCl 10 Mg Tablet, 10 MG PO DAILY, (Reported) Citalopram Hydrobromide 20 Mg Tablet, 20 MG PO DAILY, (Reported) Clonazepam 1 Mg Tablet, 1 MG PO TID, (Reported) Cyclobenzaprine HCl 5 Mg Tablet, 5 MG PO BID, (Reported) Diltiazem HCl 180 Mg Cap.er.24h, 180 MG PO DAILY, (Reported) Diphenhydramine HCl 25 Mg Tablet, 25 MG PO Q6H PRN for ALLERGIES, (Reported) Divalproex Sodium 250 Mg Tablet.dr, 250 MG PO EVERY AFTERNOON, (Reported) Divalproex Sodium 500 Mg Tablet.dr, 500 MG PO BID, (Reported) Duloxetine HCl 30 Mg Capsule.dr, 30 MG PO HS, (Reported) Duloxetine HCl 30 Mg Capsule.dr, 60 MG PO DAILY, (Reported) TAKES 2 (30MG) CAPSULES Ferrous Sulfate 325 Mg Tablet, 325 MG PO TID, (Reported) Fluticasone Propionate 16 Gm [place]bes.susp, 2 SPRAYS NS DAILY, (Reported) Fluticasone/Salmeterol 1 Each Blst.w.dev, 1 PUFF INH BID, (Reported) Gabapentin 300 Mg Capsule, 300 MG PO 0800,1400, (Reported) Gabapentin 300 Mg Capsule, 600 MG PO HS, (Reported) TAKES 2 (300MG) CAPSULES Isosorbide Mononitrate 60 Mg Tab, 60 MG PO DAILY, (Reported) Levofloxacin 750 Mg Tablet, 750 MG PO DAILY, #10 Ref 0 Prescribed by: MICHAEL ARENAS on 08/16/16 1404 Levothyroxine Sodium 100 Mcg Tab, 100 MCG PO DAILY, (Reported) Lorazepam 2 Mg/1 Ml Vial, 2 MG IM Q4H PRN for ANXIETY, (Reported) Mag Hydrox/Al Hydrox/Simeth 30 Ml Oral.susp, 30 ML PO Q4H PRN for INDIGESTION, ( Reported) Magnesium Hydroxide 400 Mg/5 Ml Oral.susp, 30 ML PO DAILY PRN for CONSTIPATION, (Reported) Methyl Salicylate/Menthol 85 Gm Cream..g., TP Q4H PRN for PAIN, (Reported) Mirabegron 50 Mg Tab.er.24h, 50 MG PO HS, (Reported) Morphine Sulfate 30 Mg Tablet.er, 30 MG PO TID, (Reported) Multivitamin 1 Each Tablet, 1 TAB PO DAILY, (Reported) Ondansetron HCl 4 Mg Tab, 4 MG PO BID PRN for NAUSEA, (Reported) Oxcarbazepine 300 Mg Tablet, 300 MG PO BID, (Reported) Pantoprazole Sodium 40 Mg Tablet.dr, 40 MG PO BID, (Reported) Polyethylene Glycol 3350 17 Gm Powd.pack, 17 GM PO DAILY PRN for CONSTIPATION, ( Reported) Polyethylene Glycol 3350 17 Gm Powd.pack, 17 GM PO QID for 7 Days, #1 Ref 0 Prescribed by: CAROL FLOR on 02/04/17 1325 Potassium Chloride 20 Meq Tab.er.prt, 20 MEQ PO DAILY, (Reported) Saccharomyces Boulardii 250 Mg Capsule, 250 MG PO DAILY, (Reported) Torsemide 10 Mg Tablet, 10 MG PO DAILY, (Reported) Trazodone HCl 50 Mg Tablet, 50 MG PO HS, (Reported) Ziprasidone HCl 60 Mg Capsule, 60 MG PO BID, (Reported) Review of Systems Constitutional: chills, fever, malaise EENTM: No Symptoms Reported Respiratory: No Symptoms Reported Cardiovascular: No Symptoms Reported Gastrointestinal: See HPI, Denies Abdomen Distended, Abdominal Pain (right upper quadrant pain), Denies Blood Streaked Stools, Denies Constipated, Denies Diarrhea, Denies Difficulty Swallowing, Nausea, Poor Appetite, Poor Fluid Intake , Denies Rectal Bleeding, Denies Vomiting Genitourinary: No Symptoms Reported Musculoskeletal: no symptoms reported Skin: no symptoms reported Psychiatric/Neurological: No Symptoms Reported All Other Systems Reviewed Negative Unless Noted: Yes (Negative excepted noted.) Past Yolldlr-Alvyhu-Fmudks Hx Patient Social History Alcohol Use: Denies Use Recreational Drug Use: No Smoking Status: Former Smoker Type Used: Cigarettes Former Smoker, Quit: Aug 29, 2016 2nd Hand Smoke Exposure: No Recent Foreign Travel: No Contact w/Someone Who Travel: No Recent Infectious Disease Expo: No Recent Hopitalizations: No Immunizations Up To Date Tetanus Booster (TDap): Unknown Date of Influenza Vaccine: May 29, 2016 Seasonal Allergies Seasonal Allergies: No Surgeries History of Surgeries: Yes (cervix) Surgeries: Tubal Ligation Respiratory History of Respiratory Disorde: No Respiratory Disorders: COPD Currently Using CPAP: No (supposed to but doesn't) Cardiovascular History of Cardiac Disorders: No (2 Mi's) Cardiac Disorders: Atrial Fibrillation, Heart Attack, Hypertension Neurological History of Neurological Disord: No Neurological Disorders: Stroke Reproductive System : No Hx Reproductive Disorders: No Sexually Transmitted Disease: No 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 Genitourinary Genitourinary Disorders: Renal Failure Gastrointestinal History of Gastrointestinal Di: No Musculoskeletal History of Musculoskeletal Dis: Yes (SPINAL STENOSIS) Musculoskeletal Disorders: Back Injury Endocrine History of Endocrine Disorders: Yes Endocrine Disorders: Hypothyroidsim Cancer History of Cancer: Yes Cancer: Skin Psychosocial History of Psychiatric Problem: Yes Behavioral Health Disorders: Anxiety, PTSD, Bipolar, Depression Integumentary History of Skin or Integumenta: No Blood Transfusions History of Blood Disorders: No Adverse Reaction to a Blood Tr: No Reviewed Nursing Assessment Reviewed/Agree w Nursing PMH: Yes Family Medical History Significant Family History: No Pertinent Family Hx, Heart Disease, Cancer, Cerebral Aneurysm Physical Exam Vital Signs VS - Last 72 Hours, by Label 10/07/17 10/07/17 20:54 21:15 Temp 98.8 Pulse 106 Resp 18 B/P (MAP) 123/104 (110) Pulse Ox 95 97 O2 Delivery Nasal Cannula Nasal Cannula O2 Flow Rate 4.00 4.00 Capillary Refill : Less Than 3 Seconds General Appearance: no apparent distress, obese (morbidly obese female, no acute distress.) HEENT: PERRL/EOMI, pharynx normal Neck: supple, normal inspection Respiratory: lungs clear, normal breath sounds, no respiratory distress, no accessory muscle use Cardiovascular: normal peripheral pulses, regular rate, rhythm, no murmur Peripheral Pulses: 2+ Dorsalis Pedis (R), 2+ Left Dors-Pedis (L), 2+ Radial Pulses (R), 2+ Radial Pulses (L) Gastrointestinal: normal bowel sounds, soft, No distended, guarding (right upper quadrant and right mid abdomen), No rebound, tenderness (right upper quadrant and right midabdomen), hernia (large reducible ventral hernia with tenderness.) Extremities: no calf tenderness, normal capillary refill Back: no CVA tenderness Neurologic/Psychiatric: alert, normal mood/affect, oriented x 3 Skin: normal color, warm/dry Focused Exam Evaluation Lactate Level Laboratory Tests 10/07/17 21:17: Lactic Acid Level 1.54 Lactic Acid Level Laboratory Tests Test 10/07/17 21:17 Lactic Acid Level 1.54 MMOL/L (0.50-2.00) Progress/Results/Core Measures Results/Orders Lab Results Laboratory Tests Test 10/07/17 21:17 Range/Units White Blood Count 17.2 H 4.3-11.0 10^3/uL Red Blood Count 3.91 L 4.35-5.85 10^6/uL Hemoglobin 13.5 11.5-16.0 G/DL Hematocrit 39 35-52 % Mean Corpuscular Volume 101 H 80-99 FL Mean Corpuscular Hemoglobin 35 H 25-34 PG Mean Corpuscular Hemoglobin Concent 34 32-36 G/DL Red Cell Distribution Width 12.5 10.0-14.5 % Platelet Count 150 130-400 10^3/uL Mean Platelet Volume 9.6 7.4-10.4 FL Neutrophils (%) (Auto) 71 42-75 % Lymphocytes (%) (Auto) 16 12-44 % Monocytes (%) (Auto) 14 H 0-12 % Eosinophils (%) (Auto) 0 0-10 % Basophils (%) (Auto) 0 0-10 % Neutrophils # (Auto) 12.1 H 1.8-7.8 X 10^3 Lymphocytes # (Auto) 2.7 1.0-4.0 X 10^3 Monocytes # (Auto) 2.3 H 0.0-1.0 X 10^3 Eosinophils # (Auto) 0.0 0.0-0.3 10^3/uL Basophils # (Auto) 0.0 0.0-0.1 10^3/uL Prothrombin Time 14.1 12.2-14.7 SEC INR Comment 1.1 0.8-1.4 Activated Partial Thromboplast Time 33 24-35 SEC Sodium Level 137 135-145 MMOL/L Potassium Level 3.9 3.6-5.0 MMOL/L Chloride Level 95 L 98-107 MMOL/L Carbon Dioxide Level 28 21-32 MMOL/L Anion Gap 14 5-14 MMOL/L Blood Urea Nitrogen 12 7-18 MG/DL Creatinine 0.71 0.60-1.30 MG/DL Estimat Glomerular Filtration Rate > 60 BUN/Creatinine Ratio 17 Glucose Level 159 H 70-105 MG/DL Lactic Acid Level 1.54 0.50-2.00 MMOL/L Calcium Level 9.4 8.5-10.1 MG/DL Total Bilirubin 0.4 0.1-1.0 MG/DL Aspartate Amino Transf (AST/SGOT) 20 5-34 U/L Alanine Aminotransferase (ALT/SGPT) 59 H 0-55 U/L Alkaline Phosphatase 112 40-136 U/L Total Protein 7.6 6.4-8.2 GM/DL Albumin 3.4 3.2-4.5 GM/DL My Orders Orders - KESHAV RAMIREZ PA Cbc With Automated Diff (10/07/17 21:22) Comprehensive Metabolic Panel (10/07/17 21:22) Lactic Acid Analyzer (10/07/17 21:22) Blood Culture (10/07/17 21:22) Ua Culture If Indicated (10/07/17 21:22) Protime With Inr (10/07/17 21:22) Partial Thromboplastin Time (10/07/17 21:22) Chest 1 View, Ap/Pa Only (10/07/17 21:22) O2 (10/07/17 21:22) Acetaminophen Tablet (Tylenol Tablet) (10/07/17 21:30) Saline Lock/Iv-Start (10/07/17 21:22) Vital Signs Adult Sepsis Patie Q1H (10/07/17 21:22) Remove Rings In Anticipation O (10/07/17 21:22) Ns Iv 1000 Ml (Sodium Chloride 0.9%) (10/07/17 21:22) Ct Abdomen/Pelvis W (10/07/17 21:22) Cefepime Injection (Maxipime Injection) (10/07/17 21:30) Remove Rings In Anticipation O (10/07/17 21:22) Influenza A And B Antigens (10/07/17 21:22) Manual Differential (10/07/17 21:17) Vital Signs/I&O Vital Sign - Last 12Hours 10/07/17 10/07/17 20:54 21:15 Temp 98.8 Pulse 106 Resp 18 B/P (MAP) 123/104 (110) Pulse Ox 95 97 O2 Delivery Nasal Cannula Nasal Cannula O2 Flow Rate 4.00 4.00 Blood Pressure Mean: 110 Departure Departure-Patient Inst. Referrals: FRANNY HUMPHREY MD (PCP/Family) Primary Care Physician KESHAV RAMIREZ Oct 07, 2017 22:03
[2017-10-07 22:08] LABS: BAND NEUTROPHILS 1 %; BASOPHILS % (MANUAL) 0 %; EOSINOPHILS % (MANUAL) 0 %; LYMPHOCYTES % (MANUAL) 23 %; MONOCYTES % (MANUAL) 14 %; NEUTROPHILS % (MANUAL) 62 %; RBC MORPH NORMAL
[2017-10-07] MEDS ORDERED: IOHEXOL 350 MG/ML 100 ML (OMNIPAQUE 350) VIAL IV ONE (22:30)
[2017-10-07] MEDS ORDERED: NS 100 ML (IVPB) BAG IV ONE (22:30)
[2017-10-07] MEDS ORDERED: KETOROLAC 30 MG/ML VIAL IVP STA (22:50)
[2017-10-07] MEDS ORDERED: LEVOFLOXACIN 750 MG/150 ML IV 150 ML IV STA (23:07)
[2017-10-08 00:25] VITALS: BP 145/62
[2017-10-08] MEDS ORDERED: ACETAMINOPHEN 650 MG SUPP (TYLENOL) PR PRN (01:00)
[2017-10-08] MEDS ORDERED: metroNIDAZOLE 500MG/100ML IVPB 100 ML ONE (01:02)
[2017-10-08] MEDS: NS IV 1000 ML 1,000 ML IV SCH ×4 (01:10→20:05)
[2017-10-08 01:16] LABS: BILIRUBIN,URINE NEGATIVE (NEGATIVE); CLARITY,URINE CLEAR; COLOR,URINE YELLOW; GLUCOSE, URINE (UA) NEGATIVE (NEGATIVE); KETONES,URINE NEGATIVE (NEGATIVE); LEUKOCYTE ESTERASE ,URINE 1+ (NEGATIVE); NITRITE,URINE NEGATIVE (NEGATIVE); PH,URINE 6 (5-9); PROTEIN,URINE 2+ (NEGATIVE); UROBILINOGEN,URINE NORMAL (NORMAL)
[2017-10-08 01:24] LABS: BACTERIA,URINE NEGATIVE /HPF; HYALINE CASTS, URINE 0-2 /LPF; WBC,URINE RARE /HPF
[2017-10-08] MEDS ORDERED: RT-ALBUTEROL/IPRATROPIUM 3 ML (DUONEB) VIAL INH PRN (02:30)
[2017-10-08 04:00] VITALS: BP 128/84
[2017-10-08] MEDS: morphine INJ 4 MG/ML 1 ML (VIAL/SYRINGE) IV PRN ×5 (05:12→22:51)
[2017-10-08] MEDS: metroNIDAZOLE 500 MG/100 ML IVPB (PRE-MIX) IV SCH ×3 (05:13→22:48)
[2017-10-08 05:38] LABS: BASOPHILS % (AUTO) 0 % (0-10); EOSINOPHILS # (AUTO) 0.1 10^3/uL (0.0-0.3); EOSINOPHILS % (AUTO) 1 % (0-10); HEMATOCRIT 36 % (35-52); HEMOGLOBIN 12.1 G/DL (11.5-16.0); LYMPHOCYTES # (AUTO) 2.4 X 10^3 (1.0-4.0); LYMPHOCYTES % (AUTO) 19 % (12-44); MEAN CORPUSCULAR HEMOGLOBIN 34 PG (25-34); MEAN CORPUSCULAR HGB CONC 33 G/DL (32-36); MEAN CORPUSCULAR VOLUME 103 FL (80-99); MEAN PLATELET VOLUME 9.6 FL (7.4-10.4); MONOCYTES # (AUTO) 1.7 X 10^3 (0.0-1.0); MONOCYTES % (AUTO) 14 % (0-12); NEUTROPHILS # (AUTO) 8.1 X 10^3 (1.8-7.8); NEUTROPHILS % (AUTO) 66 % (42-75); PLATELET COUNT 131 10^3/uL (130-400); RED BLOOD COUNT 3.54 10^6/uL (4.35-5.85); RED CELL DISTRIBUTION WIDTH 12.4 % (10.0-14.5); WHITE BLOOD COUNT 12.2 10^3/uL (4.3-11.0)
[2017-10-08 06:02] LABS: ALANINE AMINOTRANSFERASE 45 U/L (0-55); ALKALINE PHOSPHATASE 101 U/L (40-136); BILIRUBIN,TOTAL 0.4 MG/DL (0.1-1.0); BUN/CREATININE RATIO 22; CALCIUM 8.7 MG/DL (8.5-10.1); CARBON DIOXIDE 24 MMOL/L (21-32); CHLORIDE 102 MMOL/L (98-107); GFR ESTIMATED > 60; GLUCOSE 113 MG/DL (70-105); SODIUM 137 MMOL/L (135-145); TOTAL PROTEIN 6.6 GM/DL (6.4-8.2)
--- NOTE | 2017-10-08 06:33 | Diagnostic Imaging Report ---
EXAM: CHEST 1 VIEW, AP/PA ONLY INDICATION: Epigastric pain. COMPARISON: Chest radiograph 04/24/2017. FINDINGS: Stable volume loss on the right with rightward shift of the mediastinum. No new focal pulmonary opacity, pleural effusion or pneumothorax. Cardiomegaly. Central pulmonary vascularity is obscured. IMPRESSION: No acute cardiopulmonary findings. Dictated by: Dictated on workstation # [id number]
--- NOTE | 2017-10-08 06:46 | Diagnostic Imaging Report ---
PROCEDURE: CT abdomen and pelvis with contrast. TECHNIQUE: Multiple contiguous axial images were obtained through the abdomen and pelvis after administration of intravenous contrast. INDICATION: Pain. FINDINGS: The gallbladder is distended and thickwalled with likely mural edema and intraluminal debris owing to minimally calcified stones and/or sludge. The pattern suggest acute cholecystitis. There is no biliary ductal dilatation. There is mild basilar partial atelectasis. The pancreas appeared unremarkable. No appreciable opaque stone along the course of the extrahepatic duct. There is a large right paramedian ventral abdominal wall hernia comprised of fat. Small and large bowel contents to the hernia sac showed no visualized acute feature but extend well outside the [id number] of this exam. Uterus, adnexa and urinary bladder are unremarkable. No pneumatosis or free gas. IMPRESSION: 1. Thickened edematous distended gallbladder with intraluminal debris and pericholecystic inflammatory changes are most consistent with acute cholecystitis. 2. Right paramedian ventral large abdominal wall hernia sac extending outside the [id number], where visualized showed no acute element or obstructive features. Dictated by: Dictated on workstation # [id number]
[2017-10-08] MEDS: RT-ALBUTEROL/IPRATROPIUM 3 ML (DUONEB) VIAL INH SCH ×5 (06:53→22:14)
[2017-10-08 08:00] VITALS: BP 136/85
[2017-10-08] MEDS: LORazepam INJ 2 MG/ML (ATIVAN) VIAL IV PRN ×2 (09:23→15:40)
[2017-10-08 11:36] LABS: AMYLASE 10 U/L (25-125); LIPASE < 4 U/L (8-78)
--- NOTE | 2017-10-08 11:51 | Consultation-Hospitalist ---
HPI History of Present Illness: HPI/Chief Complaint Pt is a 57yoCF with a very complex PMH of multiple psychiatric disorders, CAD, and gallstones who presented to the ER for abd pain. She is a unable to tell me a consistent history. She states the pain started when she was getting her gallbladder usg but was unable to tell me why she was getting a gallblader usg. Her pain was brought on by "an aide pressing on her stomach" during the usg. She states it has been persistent since then. She really is unable to tell me many other pertinent details in regard to her current illness or even past other than having had "2 heart attacks and a gallstone for 14 years." Most of the history is obtained from records. Source: patient Date Seen 10/08/17 Attending Physician Jay Ramos MD PCP Jayson Raman MD Referring Physician Date of Admission Oct 07, 2017 at 22:52 Home Medications & Allergies Home Medications Reviewed patient Home Medication Reconciliation Form Allergies Allergies Coded Allergies Sulfa (Sulfonamide Antibiotics) (Unverified Allergy, Unknown, 08/14/16) amoxapine (Unverified Allergy, Unknown, 01/23/16) amoxicillin (Unverified Allergy, Unknown, 01/03/16) amphetamine (Unverified Allergy, Unknown, 08/14/16) aripiprazole (Unverified Allergy, Unknown, 01/03/16) bupropion (Unverified Allergy, Unknown, 01/03/16) chlorpromazine (Unverified Allergy, Unknown, 01/03/16) clozapine (Unverified Allergy, Unknown, 01/03/16) dextroamphetamine (Unverified Allergy, Unknown, 01/03/16) dextromethorphan (Unverified Allergy, Unknown, 01/03/16) furosemide (Unverified Allergy, Unknown, 01/03/16) haloperidol (Unverified Allergy, Unknown, 01/03/16) latex (Unverified Allergy, Unknown, 01/03/16) lavender (Lavandula angustifolia) (Unverified Allergy, Unknown, 01/03/16) lithium (Unverified Allergy, Unknown, 01/03/16) loxapine (Unverified Allergy, Unknown, 01/03/16) meperidine (Unverified Allergy, Unknown, 01/03/16) olanzapine (Unverified Allergy, Unknown, 01/03/16) phentermine (Unverified Allergy, Unknown, 01/03/16) risperidone (Unverified Allergy, Unknown, 01/03/16) Past Ctymyty-Psbzck-Bshwrm Hx Patient Social History Employed/Student: unemployed Alcohol Use: Denies Use Recreational Drug Use: No Smoking Status: Former Smoker Former Smoker, Quit: Aug 29, 2016 Type Used: Cigarettes 2nd Hand Smoke Exposure: No Physical Abuse Screen: No Sexual Abuse: No Recent Foreign Travel: No Contact w/other who traveled: No Recent Hopitalizations: No Recent Infectious Disease Expo: No Immunizations Up To Date Tetanus Booster (TDap): Unknown Date of Influenza Vaccine: May 29, 2017 Seasonal Allergies Seasonal Allergies: No Surgeries Yes (cervix) Tubal Ligation Respiratory No Currently Using CPAP: No (supposed to but doesn't) Cardiovascular Yes Atrial Fibrillation, Heart Attack, Hypertension Neurological No Stroke Reproductive System : No Hx Reproductive Disorders: No Sexually Transmitted Disease: No HIV/AIDS: No [employer]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 Genitourinary Renal Failure Gastrointestinal Yes Abdominal Hernia, Gall Bladder Disease Musculoskeletal Yes (SPINAL STENOSIS) Back Injury Endocrine History of Endocrine Disorders: Yes Endocrine Disorders: Hypothyroidsim HEENT History of HEENT Disorders: No Cancer Yes Skin Psychosocial History of Psychiatric Problem: Yes Behavioral Health Disorders: Anxiety, PTSD, Bipolar, Depression Integumentary History of Skin or Integumenta: No Blood Transfusions History of Blood Disorders: No Adverse Reaction to a Blood Tr: No Reviewed Nursing Assessment Reviewed/Agree w Nursing PMH: Yes Family Medical History Significant Family History: Heart Disease, Cancer, Cerebral Aneurysm Review of Systems ROS-Unable to Obtain: Very limited Constitutional: No chills, No diaphoresis, No fever Respiratory: No cough Cardiovascular: No chest pain Gastrointestinal: abdominal pain, No nausea, No vomiting Genitourinary: No dysuria Musculoskeletal: back pain, muscle pain Skin: no symptoms reported Psychiatric/Neurological: No Symptoms Reported Physical Exam Physical Exam Vital Signs Vital Signs - First Documented 10/07/17 20:54 Temp 98.8 Pulse 106 Resp 18 B/P (MAP) 123/104 (110) Pulse Ox 95 O2 Delivery Nasal Cannula O2 Flow Rate 4.00 Capillary Refill : Less Than 3 Seconds General Appearance: No Apparent Distress, Chronically ill HEENT: PERRL/EOMI, Moist Mucous Membranes Respiratory: Lungs Clear, No Respiratory Distress Cardiovascular: Regular Rate, Rhythm, No Murmur Gastrointestinal: Normal Bowel Sounds, Soft, Tenderness (mild over RUQ and epigastric area) Extremity: Normal Capillary Refill, No Calf Tenderness, No Pedal Edema Neurologic/Psychiatric: Alert, Other (oriented to major details, blunted affect ) Skin: Normal Color, Warm/Dry Results Results/Procedures Lab Laboratory Tests 10/07/17 21:17 10/08/17 05:17 Assessment/Plan Admission Diagnosis Cholecystitis Diagnosis/Problems Diagnosis/Problems (1) Cholelithiasis Assessment & Plan: Continue IV abx Surgery primary and has stated not a surgical candidate Continue medical management gallbladder usg order Qualifiers: Qualified Codes: K80.00 - Calculus of gallbladder with acute cholecystitis without obstruction (2) Bipolar disorder Assessment & Plan: Complex psych history- this is per previous notes Patient does not endorse a history of bipolar disorder Continue her current psych meds when able to take PO Qualifiers: Qualified Codes: F31.9 - Bipolar disorder, unspecified (3) Hypothyroidism Assessment & Plan: Synthroid 100mcg at ME, will continue when can take PO (4) Morbid obesity with BMI of 70 and over, adult Assessment & Plan: Likely obesity hypoventilation syndrome Frequent position changes Out of bed as able Clinical Quality Measures DVT/VTE Risk/Contraindication: Risk Factor Score Per Nursin RFS Level Per Nursing on Admit: 4+=Very High JIM PRITCHARD MD Oct 08, 2017 11:51
[2017-10-08 12:00] VITALS: BP 132/71
--- NOTE | 2017-10-08 12:23 | History & Physicial ---
History of Present Illness History of Present Illness Reason for visit/HPI increased to severe degree of long-standing pain over the right side of the abdomen. Date of Admission Oct 07, 2017 at 10:52 pm Date Seen by Provider: Oct 08, 2017 Time Seen by Provider: 10:05 I consulted on this patient on 10/08/17 12:18 Attending Physician Jay Diaz MD Admitting Physician Jayson Raman MD Consult Dr. Phyllis M.D Allergies and Home Medications Allergies Coded Allergies: Sulfa (Sulfonamide Antibiotics) (Unverified Allergy, Unknown, 08/14/16) amoxapine (Unverified Allergy, Unknown, 01/23/16) amoxicillin (Unverified Allergy, Unknown, 01/03/16) amphetamine (Unverified Allergy, Unknown, 08/14/16) aripiprazole (Unverified Allergy, Unknown, 01/03/16) bupropion (Unverified Allergy, Unknown, 01/03/16) chlorpromazine (Unverified Allergy, Unknown, 01/03/16) clozapine (Unverified Allergy, Unknown, 01/03/16) dextroamphetamine (Unverified Allergy, Unknown, 01/03/16) dextromethorphan (Unverified Allergy, Unknown, 01/03/16) furosemide (Unverified Allergy, Unknown, 01/03/16) haloperidol (Unverified Allergy, Unknown, 01/03/16) latex (Unverified Allergy, Unknown, 01/03/16) lavender (Lavandula angustifolia) (Unverified Allergy, Unknown, 01/03/16) lithium (Unverified Allergy, Unknown, 01/03/16) loxapine (Unverified Allergy, Unknown, 01/03/16) meperidine (Unverified Allergy, Unknown, 01/03/16) olanzapine (Unverified Allergy, Unknown, 01/03/16) phentermine (Unverified Allergy, Unknown, 01/03/16) risperidone (Unverified Allergy, Unknown, 01/03/16) Home Medications Acetaminophen 500 Mg Tablet, 1,000 MG PO Q4H PRN for PAIN/FEVER, (Reported) Do not exceed 3 gm in 24 hours. Albuterol Sulfate 18 Gm Hfa.aer.ad, 1 PUFF IH Q6H PRN for SHORTNESS OF BREATH, ( Reported) Aspirin 81 Mg Tabec, 81 MG PO DAILY, (Reported) Bisacodyl 10 Mg/30 Ml Enema, 10 MG RC DAILY PRN, #10 Ref 0 Prescribed by: CAROL FLOR on 02/04/17 1325 Cefuroxime Axetil 500 Mg Tablet, 500 MG PO BID, #10 Prescribed by: YANA TOUSSAINT on 09/26/16 1637 Cetirizine HCl 10 Mg Tablet, 10 MG PO DAILY, (Reported) Citalopram Hydrobromide 20 Mg Tablet, 20 MG PO DAILY, (Reported) Clonazepam 1 Mg Tablet, 1 MG PO TID, (Reported) Cyclobenzaprine HCl 5 Mg Tablet, 5 MG PO BID, (Reported) Diltiazem HCl 180 Mg Cap.er.24h, 180 MG PO DAILY, (Reported) Diphenhydramine HCl 25 Mg Tablet, 25 MG PO Q6H PRN for ALLERGIES, (Reported) Divalproex Sodium 250 Mg Tablet.dr, 250 MG PO EVERY AFTERNOON, (Reported) Divalproex Sodium 500 Mg Tablet.dr, 500 MG PO BID, (Reported) Duloxetine HCl 30 Mg Capsule.dr, 30 MG PO HS, (Reported) Duloxetine HCl 30 Mg Capsule.dr, 60 MG PO DAILY, (Reported) TAKES 2 (30MG) CAPSULES Ferrous Sulfate 325 Mg Tablet, 325 MG PO TID, (Reported) Fluticasone Propionate 16 Gm [place].susp, 2 SPRAYS NS DAILY, (Reported) Fluticasone/Salmeterol 1 Each Blst.w.dev, 1 PUFF INH BID, (Reported) Gabapentin 300 Mg Capsule, 300 MG PO 0800,1400, (Reported) Gabapentin 300 Mg Capsule, 600 MG PO HS, (Reported) TAKES 2 (300MG) CAPSULES Isosorbide Mononitrate 60 Mg Tab, 60 MG PO DAILY, (Reported) Levofloxacin 750 Mg Tablet, 750 MG PO DAILY, #10 Ref 0 Prescribed by: MICHAEL ARENAS on 08/16/16 1404 Levothyroxine Sodium 100 Mcg Tab, 100 MCG PO DAILY, (Reported) Lorazepam 2 Mg/1 Ml Vial, 2 MG IM Q4H PRN for ANXIETY, (Reported) Mag Hydrox/Al Hydrox/Simeth 30 Ml Oral.susp, 30 ML PO Q4H PRN for INDIGESTION, ( Reported) Magnesium Hydroxide 400 Mg/5 Ml Oral.susp, 30 ML PO DAILY PRN for CONSTIPATION, (Reported) Methyl Salicylate/Menthol 85 Gm Cream..g., TP Q4H PRN for PAIN, (Reported) Mirabegron 50 Mg Tab.er.24h, 50 MG PO HS, (Reported) Morphine Sulfate 30 Mg Tablet.er, 30 MG PO TID, (Reported) Multivitamin 1 Each Tablet, 1 TAB PO DAILY, (Reported) Ondansetron HCl 4 Mg Tab, 4 MG PO BID PRN for NAUSEA, (Reported) Oxcarbazepine 300 Mg Tablet, 300 MG PO BID, (Reported) Pantoprazole Sodium 40 Mg Tablet.dr, 40 MG PO BID, (Reported) Polyethylene Glycol 3350 17 Gm Powd.pack, 17 GM PO DAILY PRN for CONSTIPATION, ( Reported) Polyethylene Glycol 3350 17 Gm Powd.pack, 17 GM PO QID for 7 Days, #1 Ref 0 Prescribed by: CAROL FLOR on 02/04/17 1325 Potassium Chloride 20 Meq Tab.er.prt, 20 MEQ PO DAILY, (Reported) Saccharomyces Boulardii 250 Mg Capsule, 250 MG PO DAILY, (Reported) Torsemide 10 Mg Tablet, 10 MG PO DAILY, (Reported) Trazodone HCl 50 Mg Tablet, 50 MG PO HS, (Reported) Ziprasidone HCl 60 Mg Capsule, 60 MG PO BID, (Reported) Past Balokux-Psggzh-Wnmhfk Hx Patient Social History Marrital Status: Employed/Student: unemployed Alcohol Use: Denies Use Recreational Drug Use: No Smoking Status: Current Everyday Smoker Former Smoker, Quit: Aug 29, 2016 Type Used: Cigarettes 2nd Hand Smoke Exposure: No Physical Abuse Screen: No Sexual Abuse: No Recent Foreign Travel: No Contact w/other who traveled: No Recent Hopitalizations: No Recent Infectious Disease Expo: No Immunizations Up To Date Tetanus Booster (TDap): Unknown Date of Influenza Vaccine: May 29, 2017 Seasonal Allergies Seasonal Allergies: No Surgeries Yes (cervix) Tubal Ligation Respiratory Yes Currently Using CPAP: No (supposed to but doesn't) Cardiovascular Yes Atrial Fibrillation, Heart Attack, Hypertension Neurological No Stroke Reproductive System : No Hx Reproductive Disorders: No Sexually Transmitted Disease: No HIV/AIDS: No NURSE SPECIAL History: Menopausal Genitourinary Yes Renal Failure Gastrointestinal No Musculoskeletal Yes (SPINAL STENOSIS) Back Injury Endocrine History of Endocrine Disorders: Yes Endocrine Disorders: Hypothyroidsim HEENT History of HEENT Disorders: No Cancer Yes Skin Psychosocial History of Psychiatric Problem: Yes Behavioral Health Disorders: Anxiety, PTSD, Bipolar, Depression Integumentary History of Skin or Integumenta: No Blood Transfusions History of Blood Disorders: No Adverse Reaction to a Blood Tr: No Reviewed Nursing Assessment Reviewed/Agree w Nursing PMH: Yes Family Medical History Significant Family History: No Pertinent Family Hx, Heart Disease, Cancer, Cerebral Aneurysm Constitutional: see HPI EENTM: no symptoms reported Respiratory: cough Cardiovascular: no symptoms reported Gastrointestinal: see HPI Genitourinary: no symptoms reported Musculoskeletal: joint pain Skin: no symptoms reported Psychiatric/Neurological: Anxiety, Emotional Problems Physical Exam Vital Signs Vital Signs - First Documented 10/07/17 20:54 Temp 98.8 Pulse 106 Resp 18 B/P (MAP) 123/104 (110) Pulse Ox 95 O2 Delivery Nasal Cannula O2 Flow Rate 4.00 Capillary Refill : Less Than 3 Seconds General Appearance: No Apparent Distress, Anxious, Chronically ill HEENT: Normal ENT Inspection Neck: Normal Inspection Respiratory: Lungs Clear Cardiovascular: Regular Rate, Rhythm Gastrointestinal: Soft, Other Extremity: Normal Inspection Neurologic/Psychiatric: Other Skin: Warm/Dry Comments long-standing ventral hernia, just superior and to the right of the umbilicus. Not tender. Delong's sign negative. Assessment/Plan Assessment and Plan lady with long-standing gallstones and a ventral hernia. Multiple other medical problems. Reasonable to treat conservatively. We'll continue IV antibiotics. Problems: (1) Cholelithiasis Qualifiers: Qualified Codes: K80.00 - Calculus of gallbladder with acute cholecystitis without obstruction Assessment & Plan: Continue IV abx Surgery primary and has stated not a surgical candidate Continue medical management gallbladder usg order (2) Bipolar disorder Qualifiers: Qualified Codes: F31.9 - Bipolar disorder, unspecified Assessment & Plan: Complex psych history- this is per previous notes Patient does not endorse a history of bipolar disorder Continue her current psych meds when able to take PO (3) Hypothyroidism Assessment & Plan: Synthroid 100mcg at IA, will continue when can take PO (4) Morbid obesity with BMI of 70 and over, adult Assessment & Plan: Likely obesity hypoventilation syndrome Frequent position changes Out of bed as able Clinical Quality Measures DVT/VTE Risk/Contraindication: Risk Factor Score Per Nursin RFS Level Per Nursing on Admit: 4+=Very High JAY DIAZ MD Oct 08, 2017 12:23 pm
[2017-10-08] MEDS ORDERED: ACETAMINOPHEN 500 MG TAB (TYLENOL) PO PRN (13:30)
--- NOTE | 2017-10-08 13:36 | Physical Therapy Progress Note ---
Therapy Progress Note PT orders received this date. Chart review complete. This patient is known to this therapist from outside facility. Pt requires valentino transfer for mobility, uses a reclined chair for transport in faciltiy. Pt in bed and agreeable to participate with therapist. Nursing accounts supervisor and this therapist discussed mobility options at this time and it was decided to place her bed in chair position for upright positioning to alter pressure and allow improved lung function. Positioned pt, she was comfortable. Nursing accounts supervisor present as well as nurse tech. discussed leaving her in this position x 1 hour and then again later today. I also visited with Dr. Ferguson and discussed this plan and that PT would check pt on Tuesday. Dr. Ferguson with in agreeance. Visit only, no charge rendered. HILL CRUZ PT Oct 08, 2017 13:36
--- NOTE | 2017-10-08 13:55 | Diagnostic Imaging Report ---
PROCEDURE: US Gallbladder. TECHNIQUE: Multiple real-time grayscale images were obtained over the right upper quadrant in various projections. INDICATION: Abdominal pain. FINDINGS: There are no previous ultrasound examinations available for comparison. The CT abdomen/pelvis exam of 10/07/2017 suggested that the gallbladder was distended with mural edema and intraluminal debris. This does suggest acute cholecystitis. This exam is technically less than optimal due to the patient's body habitus. As suggested on the CT exam, there is evidence of cholelithiasis. The gallbladder wall is also thickened and there is a trace amount of pericholecystic fluid present. These findings do suggest acute cholecystitis. The common bile duct was obscured and difficult to evaluate. The liver is enlarged and more echogenic than usually seen. This does suggest fatty metamorphosis. There is no focal mass involving the liver and the biliary tree is not abnormally dilated. The right kidney is unremarkable. The pancreas and proximal aorta were not well visualized. IMPRESSION: 1. There is cholelithiasis and thickening of the gallbladder wall with a trace amount of pericholecystic fluid. These findings do suggest acute cholecystitis. If further imaging is desired, nuclear medicine hepatobiliary scan would be recommended. 2. There is no acute abnormality identified otherwise. 3. The liver is enlarged and the echogenic appearance of the liver does suggest fatty metamorphosis. Dictated by: Dictated on workstation # [id number]
[2017-10-08] MEDS: GABAPENTIN 300 MG (NEURONTIN) CAP PO SCH ×2 (14:39→20:05)
[2017-10-08] MEDS: DIVALPROEX 250 MG DELAYED RELEASE (DEPAKOTE) TAB PO SCH (14:39)
[2017-10-08 16:26] VITALS: BP 113/60
[2017-10-08] MEDS: ONDANSETRON 4 MG/2 ML (SDV) Z0FRAN IV PRN (19:39)
[2017-10-08] MEDS: DIVALPROEX 500 MG DELAYED RELEASE (DEPAKOTE) TAB PO SCH (20:05)
[2017-10-08] MEDS: DULoxetine 30 MG (CYMBALTA) CAP PO SCH (20:05)
[2017-10-08 20:07] VITALS: BP 128/90
[2017-10-08] MEDS ORDERED: NON-FORMULARY MEDICATION 1 EA EA (Mirabegron (Myrbetriq) 50 MG) PO SCH (21:00)
[2017-10-08] MEDS: LEVOFLOXACIN 750 MG/D5W 150 ML PRE-MIX IV SCH (21:17)
[2017-10-09] VITALS: BP 132/72
[2017-10-09] MEDS: RT-ALBUTEROL/IPRATROPIUM 3 ML (DUONEB) VIAL INH SCH ×6 (01:18→22:25)
[2017-10-09] MEDS: morphine INJ 4 MG/ML 1 ML (VIAL/SYRINGE) IV PRN ×6 (01:42→18:19)
[2017-10-09 04:00] VITALS: BP 114/65
[2017-10-09] MEDS: LEVOTHYROXINE 100 MCG (LEVOTHROID) TAB PO SCH (05:49)
[2017-10-09] MEDS: metroNIDAZOLE 500 MG/100 ML IVPB (PRE-MIX) IV SCH ×3 (05:49→21:08)
[2017-10-09 08:00] VITALS: BP 126/70
[2017-10-09] MEDS: GABAPENTIN 300 MG (NEURONTIN) CAP PO SCH ×3 (08:58→21:06)
[2017-10-09] MEDS: DIVALPROEX 500 MG DELAYED RELEASE (DEPAKOTE) TAB PO SCH ×2 (08:58→21:26)
[2017-10-09] MEDS: DULoxetine 30 MG (CYMBALTA) CAP PO SCH ×2 (08:58→21:06)
[2017-10-09] MEDS: LACTOBACILLUS Acidoph/Bulgar (LACTINEX/FLORANEX) TAB PO SCH (08:58)
[2017-10-09] MEDS: ISOSORBIDE MONONITRATE 60 MG (IMDUR) TAB PO SCH (08:59)
[2017-10-09] MEDS: DILTIAZEM 180 MG (CARDIZEM CD) CAP PO SCH (08:59)
[2017-10-09] MEDS: ASPIRIN E.C. 81 MG (ECOTRIN) TAB PO SCH (08:59)
[2017-10-09] MEDS ORDERED: SACCHAROMYCES BOULARDII 250 MG PO SCH (09:00)
[2017-10-09] MEDS: FLUTICASONE NASAL SPRAY (FLONASE) 16 GM BTL NS SCH (09:01)
--- NOTE | 2017-10-09 10:00 | Progress Note-Hospitalist ---
Subjective HPI/CC On Admission Date Seen by Provider: Oct 09, 2017 Time Seen by Provider: 09:50 Pt is a 57yoCF with a very complex PMH of multiple psychiatric disorders, CAD, and obesity hypoventilation syndrome who presented to the ER with complaints of abd pain and was found to have a gallstone and signs concerning of acute cholecystitis. She was admitted for evaluation of potential surgical management. Subjective/Events-last exam Complains of pain in back from how she is sitting. She reports she is unable to move herself and needs help. Objective Exam Vital Signs Vital Signs Date Time Temp Pulse Resp B/P (MAP) Pulse Ox O2 Delivery O2 Flow Rate FiO2 10/07/17 20:54 98.8 106 18 123/104 (110) 95 Nasal Cannula 4.00 Capillary Refill : Less Than 3 Seconds General Appearance: No Apparent Distress, Chronically ill Respiratory: Lungs Clear, No Respiratory Distress Cardiovascular: Regular Rate, Rhythm, No Murmur Gastrointestinal: Normal Bowel Sounds, Soft, Hernia, Tenderness (mild in RUQ) Neurologic/Psychiatric: Alert, Oriented x3, Other (blunted affect) Assessment/Plan Assessment and Plan Assess & Plan/Chief Complaint symptomatic cholelithiasis Diagnosis/Problems Diagnosis/Problems (1) Cholelithiasis Assessment & Plan: Continue IV abx Surgery primary and has stated not a surgical candidate Continue medical management gallbladder usg revales gallstone Qualifiers: Qualified Codes: K80.00 - Calculus of gallbladder with acute cholecystitis without obstruction (2) Bipolar disorder Assessment & Plan: Complex psych history- this is per previous notes Patient does not endorse a history of bipolar disorder Continue her current psych meds from [facility] Qualifiers: Qualified Codes: F31.9 - Bipolar disorder, unspecified (3) Hypothyroidism Assessment & Plan: Continue Synthroid (4) Morbid obesity with BMI of 70 and over, adult Assessment & Plan: Likely obesity hypoventilation syndrome Frequent position changes (5) Prophylactic measure Assessment & Plan: Lovenox for DVT ppx Saline Lock Reg JIM Saha MD Oct 09, 2017 10:00
--- OUTSIDE RECORDS SUMMARY | 2017-10-09 10:50 | XMS REPORT | Clinical Summary ---
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 Disp. Refills Start End Date Status Date oxyCODONE (OXYCONTIN) 40 Take 1 tablet (40 mg 60 tablet 0 12/26/19 Active MG 12 hr total) by mouth every 12 14 tabletIndications: (twelve) hours. Moderate to Severe Indications: Moderate to Chronic Pain Severe Chronic Pain nystatin (NYSTOP) 126343 Apply topically 2 (two) Active UNIT/GM POWD times daily. Indications: powderIndications: Skin Infection due to Cutaneous Candidiasis Prema Yeast isosorbide mononitrate Take 60 mg by mouth Active (IMDUR) 60 MG 24 hr daily. Indications: tabletIndications: Stable Chronic Angina Pectoris Angina Pectoris acetaminophen (TYLENOL) Take 650 mg by mouth Active 325 MG tablet every 6 (six) hours as needed for Pain. (650 mg=2 tablets) aspirin 81 MG chewable Take 81 mg by mouth Active tabletIndications: daily. Indications: Blood Thrombosis Clot gabapentin (NEURONTIN) Take 300 mg by mouth Active 300 MG nightly. Indications: capsuleIndications: Aggressive Behavior Aggressive Behavior potassium chloride SA Take 40 mEq by mouth 2 Active (KLOR-CON M20) 20 MEQ (two) times daily. (40 tabletIndications: mEq=2 tablets) Hypertension Indications: High Blood Pressure Liniments (ANALGESIC BALM Apply topically 4 (four) Active EX)Indications: times daily as needed. prevention Indications: prevention Alum & Mag Take by mouth. Active Hydroxide-Simeth 225-200-25 MG/5ML SUSP aluminum & magnesium Take 15 mLs by mouth 3 Active hydroxide (MAALOX) (three) times daily as 225-200 MG/5ML needed. Indications: Gas suspensionIndications: Flatulence pantoprazole (PROTONIX) Take 40 mg by mouth every Active 40 MG tabletIndications: morning before breakfast. Gastroesophageal Reflux Indications: Disease Gastroesophageal Reflux Disease mirtazapine (REMERON) 15 Take 7.5 mg by mouth Active MG tabletIndications: nightly. (7.5 mg=1/2 Major Depressive Disorder tablet) Indications: Major Depressive Disorder Calcium Take 1 tablet by mouth 2 Active Carb-Cholecalciferol (two) times daily. (CALCIUM + D3) 600-200 Indications: Low Amount MG-UNIT TABSIndications: of Calcium in the Blood Hypocalcemia divalproex (DEPAKOTE ER) Take 2,000 mg by mouth Active 500 MG 24 hr nightly. (2,000 mg=4 tabletIndications: Manic tablets) Indications: Phase of Bipolar Mood Manic Phase of Disorder Manic-Depression levothyroxine (SYNTHROID, Take 125 mcg by mouth Active LEVOTHROID) 125 MCG every morning before tabletIndications: breakfast. Indications: Hypothyroidism Underactive Thyroid fluticasone (FLONASE) 50 2 sprays by Each Nare Active MCG/ACT nasal route daily. Indications: sprayIndications: Nonallergic Rhinitis Nonallergic Rhinitis clonazePAM (KLONOPIN) 0.5 Take 0.5 mg by mouth 2 Active MG tabletIndications: (two) times daily. Anxiety Indications: Anxiety clonazePAM (KLONOPIN) 2 Take 2 mg by mouth Active MG tabletIndications: nightly. Indications: Anxiety Anxiety gabapentin (NEURONTIN) Take 100 mg by mouth Active 100 MG every morning. capsuleIndications: Pain Indications: Pain docusate sodium (COLACE) Take 200 mg by mouth 2 Active 100 MG (two) times daily. (200 capsuleIndications: mg=2 capsules) Constipation Indications: Constipation melatonin 3 MG Take 3 mg by mouth Active TABSIndications: Insomnia nightly. Indications: Trouble Sleeping Active Problems Not on file Social History Tobacco Use Types Packs/Day Years Used Date Never Smoker Alcohol Use Drinks/Week oz/Week Comments No Sex Assigned at Date Recorded Not on file Last Filed Vital Signs Vital Sign Reading Time Taken Blood Pressure 123/79 12/28/2013 5:00 PM CDT Pulse 73 12/28/2013 4:30 PM CDT Temperature 36.8 C (98.2 F) 12/28/2013 12:11 PM CDT Respiratory Rate 18 12/28/2013 12:11 PM CDT Oxygen Saturation 99% 12/28/2013 4:30 PM CDT Inhaled Oxygen - - Concentration Weight 142.9 kg (315 lb) 12/28/2013 12:11 PM CDT Height 172.7 cm (5' 8") 12/28/2013 12:11 PM CDT Body Mass Index 47.9 12/28/2013 12:11 PM CDT Plan of Treatment Health Maintenance Due Date Last Done Comments Hepatitis C Screening 1959 DTaP,Tdap,and Td Vaccines 1978 (1 - Tdap) CERVICAL CANCER SCREENING 02/26/1980 Breast Cancer 2009 Screening-Mammogram Colon Cancer Screening 2009 Influenza Vaccine (#1) 2017 Results Not on filefrom Last 3 Months
--- OUTSIDE RECORDS SUMMARY | 2017-10-09 10:51 | XMS REPORT | Clinical Summary ---
Author Author [facility] Organization [facility] Address Unknown Phone Unavailable Care Team Providers Care Lieutenant Governor Name Role Phone Kimberly Sood APRN Unavailable Aye Olea Unavailable Unavailable Diane Parr RN Unavailable Unavailable No Pcp, Na PCP Unavailable Lelia Chiu RN Unavailable Unavailable Yan Rome MD Unavailable Calos Ascencio MD Unavailable Unavailable Shorty Ramirez MD Unavailable Unavailable Source Comments Some departments are not documenting in the electronic medical record. If you do not see the information that you expected, contact Release of Information in the Health Information Management department at [phone] for further assistance in locating additional records.[facility] Allergies Active Allergy Reactions Severity Noted Date [...] 1999 COLORECTAL CANCER 2009 SCREENING INFLUENZA VACCINE 03/29/2017 Results Not on filefrom Last 3 Months
[2017-10-09] MEDS: ENOXAPARIN 40 MG/0.4 ML (LOVENOX) SYR SC SCH (11:33)
[2017-10-09] MEDS: DIVALPROEX 250 MG DELAYED RELEASE (DEPAKOTE) TAB PO SCH (11:33)
[2017-10-09] MEDS: LORazepam INJ 2 MG/ML (ATIVAN) VIAL IV PRN ×2 (11:34→21:07)
[2017-10-09 12:00] VITALS: BP 150/61
[2017-10-09] MEDS: cefTRIAXone INJECTION 1,000 MG in NS (IVPB) 50 ML IV SCH (12:05)
[2017-10-09] MEDS ORDERED: MENT7.5L3 MM (12:18)
[2017-10-09] MEDS ORDERED: TORS10TA5 PO (12:18)
[2017-10-09] MEDS ORDERED: MAGN296S50 PO (12:18)
[2017-10-09] MEDS ORDERED: DILT180C82 PO (12:18)
[2017-10-09] MEDS ORDERED: GUAI600T86 PO (12:18)
[2017-10-09] MEDS ORDERED: ASPI-983 PO (12:18)
[2017-10-09] MEDS ORDERED: ALBU18HF2 IH (12:18)
[2017-10-09] MEDS ORDERED: HYOS-19 SL (12:18)
[2017-10-09] MEDS ORDERED: DULO60CA58 PO (12:18)
[2017-10-09] MEDS ORDERED: MORP-33 PO (12:18)
[2017-10-09] MEDS ORDERED: LORA0.5T PO (12:18)
[2017-10-09] MEDS ORDERED: ALBU2.5V4 IH (12:18)
[2017-10-09] MEDS ORDERED: ASPI-808 PO (12:18)
[2017-10-09] MEDS ORDERED: PROM25TA14 PO (12:18)
[2017-10-09] MEDS ORDERED: DULO30CA48 PO (12:18)
[2017-10-09] MEDS ORDERED: LEVO125T6 PO (12:18)
[2017-10-09] MEDS ORDERED: METH113C21 TP (12:18)
[2017-10-09] MEDS ORDERED: AZIT250T12 PO (12:18)
[2017-10-09] MEDS ORDERED: IBUP-2055 PO (12:18)
--- NOTE | 2017-10-09 12:26 | Progress Note (SOAP) ---
Subjective Date Seen by Provider: Oct 09, 2017 Time Seen by Provider: 11:20 Subjective/Events-last exam Pain better. Poor surgical candidate and therefore, would manage non-operatively Review of Systems General: No Chills, No Night Sweats, No Fatigue, No Malaise Pulmonary: No Dyspnea, No Cough, No Pleuritic Chest Pain Cardiovascular: No: Chest Pain, Palpitations, Orthopnea, Paroxysmal Noc. Dyspnea, Edema, Lt Headedness Gastrointestinal: No: Nausea, Vomiting, Abdominal Pain, Diarrhea, Constipation , Melena, Hematochezia Genitourinary: No Dysuria, No Frequency, No Incontinence, No Hematuria, No Retention Musculoskeletal: back pain Neurological: No: Weakness, Numbness, Incoordination, Change in speech, Confusion, Seizures, Other Objective Exam Vital Signs Date Time Temp Pulse Resp B/P (MAP) Pulse Ox O2 Delivery O2 Flow Rate FiO2 10/09/17 12:00 98.0 83 20 150/61 (90) 99 Nasal Cannula 3.00 10/09/17 10:01 94 Nasal Cannula 2.00 10/09/17 09:00 Nasal Cannula 3.00 10/09/17 08:00 98.0 74 20 126/70 (88) 94 Nasal Cannula 3.00 10/09/17 07:04 94 Nasal Cannula 2.00 10/09/17 04:00 98.9 99 20 114/65 (81) 94 Nasal Cannula 3.00 10/09/17 01:31 92 Nasal Cannula 2.00 10/09/17 01:18 Nasal Cannula 2.00 10/09/17 00:00 99.1 81 20 132/72 (92) 97 Nasal Cannula 3.00 10/08/17 22:14 97 Nasal Cannula 3.00 10/08/17 21:00 Nasal Cannula 3.00 10/08/17 20:07 98.8 87 23 128/90 (103) 99 Nasal Cannula 3.00 10/08/17 19:08 98 Nasal Cannula 3.00 10/08/17 16:26 97.3 81 20 113/60 (77) 96 Nasal Cannula 3.00 10/08/17 16:15 98.1 10/08/17 14:47 95 Nasal Cannula 3.00 I & O 10/09/17 07:00 Intake Total 3984 ml Output Total 1200 ml Balance 2784 ml Capillary Refill : Less Than 3 Seconds General Appearance: No Apparent Distress HEENT: Normal ENT Inspection Neck: Normal Inspection Gastrointestinal: non tender, soft Skin: Warm/Dry Other comments Long standing ventral hernia. Delong's sign negative Results Lab Microbiology 10/07/17 Blood Culture - Preliminary, Resulted No growth 10/07/17 Influenza Types A,B Antigen (NAYANA) - Final, Complete Assessment/Plan Assessment/Plan Assess & Plan/Chief Complaint Lady with multiple co-morbidities, Gallstones with cholecystitis. Will manage non-operatively Final Diagnosis Gallstones Clinical Quality Measures DVT/VTE Risk/Contraindication: Risk Factor Score Per Nursin RFS Level Per Nursing on Admit: 4+=Very High EMELINA DIAZ MD Oct 09, 2017 12:26 pm
[2017-10-09] MEDS ORDERED: DEXT1CAP3 PO (12:39)
[2017-10-09] MEDS ORDERED: [UNRECOGNIZED DRUG - OTHER] TP (12:39)
[2017-10-09] MEDS ORDERED: PANT20TA3 PO (12:39)
[2017-10-09] MEDS ORDERED: RISP4TAB2 PO (12:39)
[2017-10-09] MEDS ORDERED: GABA-488 PO (12:39)
[2017-10-09] MEDS ORDERED: NYST15CR TP (12:39)
[2017-10-09] MEDS ORDERED: DIVA500T7 PO (12:39)
[2017-10-09 16:26] VITALS: BP 131/69
[2017-10-09] MEDS: ONDANSETRON 4 MG/2 ML (SDV) Z0FRAN IV PRN (19:07)
[2017-10-09] MEDS: LEVOFLOXACIN 750 MG/D5W 150 ML PRE-MIX IV SCH (21:08)
[2017-10-10] VITALS: BP 118/68
[2017-10-10] MEDS: RT-ALBUTEROL/IPRATROPIUM 3 ML (DUONEB) VIAL INH SCH ×4 (01:17→14:00)
[2017-10-10] MEDS: morphine INJ 4 MG/ML 1 ML (VIAL/SYRINGE) IV PRN ×4 (02:35→13:10)
[2017-10-10] MEDS: metroNIDAZOLE 500 MG/100 ML IVPB (PRE-MIX) IV SCH ×2 (06:21→13:10)
[2017-10-10] MEDS: LEVOTHYROXINE 100 MCG (LEVOTHROID) TAB PO SCH (06:21)
[2017-10-10] MEDS: cefTRIAXone INJECTION 1,000 MG in NS (IVPB) 50 ML IV SCH (07:55)
[2017-10-10] MEDS: DILTIAZEM 180 MG (CARDIZEM CD) CAP PO SCH (07:57)
[2017-10-10] MEDS: GABAPENTIN 300 MG (NEURONTIN) CAP PO SCH ×2 (07:57→14:25)
[2017-10-10] MEDS: ISOSORBIDE MONONITRATE 60 MG (IMDUR) TAB PO SCH (07:57)
[2017-10-10] MEDS: ASPIRIN E.C. 81 MG (ECOTRIN) TAB PO SCH (07:58)
[2017-10-10] MEDS: LACTOBACILLUS Acidoph/Bulgar (LACTINEX/FLORANEX) TAB PO SCH (07:58)
[2017-10-10] MEDS: DULoxetine 30 MG (CYMBALTA) CAP PO SCH (07:58)
[2017-10-10] MEDS: FLUTICASONE NASAL SPRAY (FLONASE) 16 GM BTL NS SCH (08:10)
[2017-10-10 08:40] VITALS: BP 126/71
[2017-10-10] MEDS: ENOXAPARIN 40 MG/0.4 ML (LOVENOX) SYR SC SCH (08:40)
[2017-10-10] MEDS: ONDANSETRON 4 MG/2 ML (SDV) Z0FRAN IV PRN (09:32)
[2017-10-10] MEDS: DIVALPROEX 500 MG DELAYED RELEASE (DEPAKOTE) TAB PO SCH (10:10)
--- NOTE | 2017-10-10 10:31 | Physical Therapy Progress Note ---
Therapy Progress Note Patient visit. Pt's bed placed in "chair" position. Educated pt on the importance of change of position and HOB up for optimal oxygen exchange as well as change of position for skin integrity. Pt tearful during visit. Pt talks through multiple topics while this PT present. needs met post visit. [id number] visit only HILL CRUZ PT Oct 10, 2017 10:31
--- NOTE | 2017-10-10 13:04 | Discharge Inst-Simple/Standard ---
Discharge Inst-Standard Discharge Medications New, Converted or Re-Newed RX: Other Patient Instructions/Follow Up Plan of Care/Instructions/FU: Will contact the facility regarding f/u at [facility] Activity as Tolerated: Yes Discharge Diet: No Restrictions EMELINA DIAZ MD Oct 10, 2017 1:04 pm
[2017-10-10] MEDS: DIVALPROEX 250 MG DELAYED RELEASE (DEPAKOTE) TAB PO SCH (13:09)
--- NOTE | 2017-10-10 13:42 | Progress Note (SOAP) ---
Subjective Date Seen by Provider: Oct 10, 2017 Time Seen by Provider: 12:45 Subjective/Events-last exam No specific symptoms reported. Review of Systems General: No Chills, No Night Sweats, No Fatigue, No Malaise Pulmonary: No Dyspnea, No Cough, No Pleuritic Chest Pain Cardiovascular: No: Chest Pain, Palpitations, Orthopnea, Paroxysmal Noc. Dyspnea, Edema, Lt Headedness Gastrointestinal: Abdominal Pain Genitourinary: No Dysuria, No Frequency, No Incontinence, No Hematuria, No Retention Musculoskeletal: back pain Neurological: No: Weakness, Numbness, Incoordination, Change in speech, Confusion, Seizures, Other Objective Exam Vital Signs Date Time Temp Pulse Resp B/P (MAP) Pulse Ox O2 Delivery O2 Flow Rate FiO2 10/10/17 11:11 94 Nasal Cannula 2.00 10/10/17 09:00 Nasal Cannula 3.00 10/10/17 08:40 97.8 98 22 126/71 (89) 94 Nasal Cannula 2.00 10/10/17 07:18 95 Nasal Cannula 2.00 10/10/17 01:17 Nasal Cannula 2.00 10/10/17 00:00 97.7 74 20 118/68 (85) 95 Nasal Cannula 2.00 10/09/17 22:25 94 Nasal Cannula 2.00 10/09/17 21:00 Nasal Cannula 3.00 10/09/17 16:26 97.8 76 20 131/69 (89) 96 Nasal Cannula 2.00 I & O 10/10/17 07:00 Intake Total 1162 ml Output Total 1025 ml Balance 137 ml Capillary Refill : Less Than 3 Seconds General Appearance: Anxious Neck: Normal Inspection Respiratory: Lungs Clear Gastrointestinal: soft, other Neurologic/Psychiatric: Alert, Oriented x3 Skin: Warm/Dry Other comments Long-standing hernia to the right of the umbilicus. Delong's sign negative. Results Lab Microbiology 10/07/17 Blood Culture - Preliminary, Resulted No growth 10/07/17 Influenza Types A,B Antigen (NAYANA) - Final, Complete Assessment/Plan Assessment/Plan Assess & Plan/Chief Complaint Lady with multiple co-morbidities, Gallstones with cholecystitis. Will manage non-operatively Lady with multiple comorbidities. Symptomatic gallstones. Good response to antibiotics. Could be discharged back to the care home. Reasonable to be evaluated at [facility] for surgical consideration. This will be arranged as an outpatient Final Diagnosis Gallstones Clinical Quality Measures DVT/VTE Risk/Contraindication: Risk Factor Score Per Nursin RFS Level Per Nursing on Admit: 4+=Very High EMELINA DIAZ MD Oct 10, 2017 13:42
--- NOTE | 2017-10-10 13:44 | Discharge Summary ---
Diagnosis/Chief Complaint Date of Admission Oct 07, 2017 at 22:52 Date of Discharge 10/10/17 Discharge Date: Oct 10, 2017 Discharge Time: 13:42 Admission Diagnosis Admission Diagnosis Gallstones Discharge Diagnosis Gallstones with cholecystitis Reason Hospital Visit increased to severe degree of long-standing pain over the right side of the abdomen. Evaluation is confirmed a long-standing gallstones with thickening of the gallbladder wall, indicating chronic cholecystitis and a long-standing ventral hernia. Deemed to be a poor candidate for surgery and therefore managed nonoperatively. Good response and antibodies will be continued. Discharge Summary Procedures none Consultations Hospitalist service for medical management Discharge Physical Examination Allergies: Coded Allergies: Sulfa (Sulfonamide Antibiotics) (Unverified Allergy, Unknown, 08/14/16) amoxapine (Unverified Allergy, Unknown, 01/23/16) amoxicillin (Unverified Allergy, Unknown, 01/03/16) amphetamine (Unverified Allergy, Unknown, 08/14/16) aripiprazole (Unverified Allergy, Unknown, 01/03/16) bupropion (Unverified Allergy, Unknown, 01/03/16) chlorpromazine (Unverified Allergy, Unknown, 01/03/16) clozapine (Unverified Allergy, Unknown, 01/03/16) dextroamphetamine (Unverified Allergy, Unknown, 01/03/16) dextromethorphan (Unverified Allergy, Unknown, 01/03/16) furosemide (Unverified Allergy, Unknown, 01/03/16) haloperidol (Unverified Allergy, Unknown, 01/03/16) latex (Unverified Allergy, Unknown, 01/03/16) lavender (Lavandula angustifolia) (Unverified Allergy, Unknown, 01/03/16) lithium (Unverified Allergy, Unknown, 01/03/16) loxapine (Unverified Allergy, Unknown, 01/03/16) meperidine (Unverified Allergy, Unknown, 01/03/16) olanzapine (Unverified Allergy, Unknown, 01/03/16) phentermine (Unverified Allergy, Unknown, 01/03/16) risperidone (Unverified Allergy, Unknown, 01/03/16) Vitals & I&Os Vital Signs Date Time Temp Pulse Resp B/P (MAP) Pulse Ox O2 Delivery O2 Flow Rate FiO2 10/10/17 11:11 94 Nasal Cannula 2.00 10/10/17 08:40 97.8 98 22 126/71 (89) Hospital Course Labs (last 24 hrs) Laboratory Tests 10/07/17 21:17: White Blood Count 17.2H, Red Blood Count 3.91L, Hemoglobin 13.5, Hematocrit 39, Mean Corpuscular Volume 101H, Mean Corpuscular Hemoglobin 35H, Mean Corpuscular Hemoglobin Concent 34, Red Cell Distribution Width 12.5, Platelet Count 150, Mean Platelet Volume 9.6, Neutrophils (%) (Auto) 71, Lymphocytes (%) (Auto) 16, Monocytes (%) (Auto) 14H, Eosinophils (%) (Auto) 0, Basophils (%) (Auto) 0, Neutrophils # (Auto) 12.1H, Lymphocytes # (Auto) 2.7, Monocytes # (Auto) 2.3H, Eosinophils # (Auto) 0.0, Basophils # (Auto) 0.0, Neutrophils % (Manual) 62, Lymphocytes % (Manual) 23, Monocytes % (Manual) 14, Eosinophils % (Manual) 0, Basophils % (Manual) 0, Band Neutrophils 1, Blood Morphology Comment NORMAL, Prothrombin Time 14.1, INR Comment 1.1, Activated Partial Thromboplast Time 33, Sodium Level 137, Potassium Level 3.9, Chloride Level 95L, Carbon Dioxide Level 28, Anion Gap 14, Blood Urea Nitrogen 12, Creatinine 0.71, Estimat Glomerular Filtration Rate > 60, BUN/Creatinine Ratio 17, Glucose Level 159H, Lactic Acid Level 1.54, Calcium Level 9.4, Total Bilirubin 0.4, Aspartate Amino Transf (AST/ SGOT) 20, Alanine Aminotransferase (ALT/SGPT) 59H, Alkaline Phosphatase 112, Total Protein 7.6, Albumin 3.4, Lipase < 4L 10/08/17 01:00: Urine Color YELLOW, Urine Clarity CLEAR, Urine pH 6, Urine Specific [place] 1.010L, Urine Protein 2+H, Urine Glucose (UA) NEGATIVE, Urine Ketones NEGATIVE, Urine Nitrite NEGATIVE, Urine Bilirubin NEGATIVE, Urine Urobilinogen NORMAL, Urine Leukocyte Esterase 1+H, Urine RBC (Auto) NEGATIVE, Urine RBC NONE, Urine WBC RARE, Urine Squamous Epithelial Cells 2-5, Urine Crystals NONE, Urine Bacteria NEGATIVE, Urine Casts PRESENT, Urine Hyaline Casts 0-2H, Urine Mucus NEGATIVE, Urine Culture Indicated NO 10/08/17 05:17: White Blood Count 12.2H, Red Blood Count 3.54L, Hemoglobin 12.1, Hematocrit 36, Mean Corpuscular Volume 103H, Mean Corpuscular Hemoglobin 34, Mean Corpuscular Hemoglobin Concent 33, Red Cell Distribution Width 12.4, Platelet Count 131, Mean Platelet Volume 9.6, Neutrophils (%) (Auto) 66, Lymphocytes (%) (Auto) 19, Monocytes (%) (Auto) 14H, Eosinophils (%) (Auto) 1, Basophils (%) (Auto) 0, Neutrophils # (Auto) 8.1H, Lymphocytes # (Auto) 2.4, Monocytes # (Auto) 1.7H, Eosinophils # (Auto) 0.1, Basophils # (Auto) 0.0, Sodium Level 137, Potassium Level 4.0, Chloride Level 102, Carbon Dioxide Level 24, Anion Gap 11, Blood Urea Nitrogen 13, Creatinine 0.60, Estimat Glomerular Filtration Rate > 60, BUN/ Creatinine Ratio 22, Glucose Level 113H, Lactic Acid Level 0.58, Calcium Level 8.7, Total Bilirubin 0.4, Aspartate Amino Transf (AST/SGOT) 21, Alanine Aminotransferase (ALT/SGPT) 45, Alkaline Phosphatase 101, Total Protein 6.6, Albumin 3.0L, Lipase < 4L, C-Reactive Protein High Sensitivity 33.06H, Amylase Level 10L Microbiology 10/07/17 Blood Culture - Preliminary, Resulted No growth 10/07/17 Influenza Types A,B Antigen (NAYANA) - Final, Complete Pending Labs Microbiology Date/Time Source Procedure Growth Status 10/07/17 21:43 Peripheral Rt Hand Blood Culture - Preliminary No growth Resulted 10/07/17 21:17 Peripheral Left Wrist Blood Culture - Preliminary No growth Resulted 10/07/17 21:45 Nasopharynx Influenza Types A,B Antigen (NAYANA) - Final Complete Laboratory Tests 10/07/17 21:17: White Blood Count 17.2, Red Blood Count 3.91, Hemoglobin 13.5, Hematocrit 39, Mean Corpuscular Volume 101, Mean Corpuscular Hemoglobin 35, Mean Corpuscular Hemoglobin Concent 34, Red Cell Distribution Width 12.5, Platelet Count 150, Mean Platelet Volume 9.6, Neutrophils (%) (Auto) 71, Lymphocytes (%) (Auto) 16, Monocytes (%) (Auto) 14, Eosinophils (%) (Auto) 0, Basophils (%) (Auto) 0, Neutrophils # (Auto) 12.1, Lymphocytes # (Auto) 2.7, Monocytes # (Auto) 2.3, Eosinophils # (Auto) 0.0, Basophils # (Auto) 0.0, Neutrophils % (Manual) 62, Lymphocytes % (Manual) 23, Monocytes % (Manual) 14, Eosinophils % (Manual) 0, Basophils % (Manual) 0, Band Neutrophils 1, Blood Morphology Comment NORMAL, Prothrombin Time 14.1, INR Comment 1.1, Activated Partial Thromboplast Time 33, Sodium Level 137, Potassium Level 3.9, Chloride Level 95, Carbon Dioxide Level 28, Anion Gap 14, Blood Urea Nitrogen 12, Creatinine 0.71, Estimat Glomerular Filtration Rate > 60, BUN/Creatinine Ratio 17, Glucose Level 159, Lactic Acid Level 1.54, Calcium Level 9.4, Total Bilirubin 0.4, Aspartate Amino Transf (AST/ SGOT) 20, Alanine Aminotransferase (ALT/SGPT) 59, Alkaline Phosphatase 112, Total Protein 7.6, Albumin 3.4, Lipase < 4 10/08/17 01:00: Urine Color YELLOW, Urine Clarity CLEAR, Urine pH 6, Urine Specific [place] 1.010, Urine Protein 2+, Urine Glucose (UA) NEGATIVE, Urine Ketones NEGATIVE, Urine Nitrite NEGATIVE, Urine Bilirubin NEGATIVE, Urine Urobilinogen NORMAL, Urine Leukocyte Esterase 1+, Urine RBC (Auto) NEGATIVE, Urine RBC NONE, Urine WBC RARE, Urine Squamous Epithelial Cells 2-5, Urine Crystals NONE, Urine Bacteria NEGATIVE, Urine Casts PRESENT, Urine Hyaline Casts 0-2, Urine Mucus NEGATIVE, Urine Culture Indicated NO 10/08/17 05:17: White Blood Count 12.2, Red Blood Count 3.54, Hemoglobin 12.1, Hematocrit 36, Mean Corpuscular Volume 103, Mean Corpuscular Hemoglobin 34, Mean Corpuscular Hemoglobin Concent 33, Red Cell Distribution Width 12.4, Platelet Count 131, Mean Platelet Volume 9.6, Neutrophils (%) (Auto) 66, Lymphocytes (%) (Auto) 19, Monocytes (%) (Auto) 14, Eosinophils (%) (Auto) 1, Basophils (%) (Auto) 0, Neutrophils # (Auto) 8.1, Lymphocytes # (Auto) 2.4, Monocytes # (Auto) 1.7, Eosinophils # (Auto) 0.1, Basophils # (Auto) 0.0, Sodium Level 137, Potassium Level 4.0, Chloride Level 102, Carbon Dioxide Level 24, Anion Gap 11, Blood Urea Nitrogen 13, Creatinine 0.60, Estimat Glomerular Filtration Rate > 60, BUN/ Creatinine Ratio 22, Glucose Level 113, Lactic Acid Level 0.58, Calcium Level 8.7, Total Bilirubin 0.4, Aspartate Amino Transf (AST/SGOT) 21, Alanine Aminotransferase (ALT/SGPT) 45, Alkaline Phosphatase 101, Total Protein 6.6, Albumin 3.0, Lipase < 4, C-Reactive Protein High Sensitivity 33.06, Amylase Level 10 Discharge Home Medications: Active Scripts Active Cefuroxime (Cefuroxime Axetil) 500 Mg Tablet 500 Mg PO BID Reported Nystatin 15 Gm Cream..g. TP Q12H PRN [Duoderm] TP EVERY 3 DAYS Risperidone 4 Mg Tablet 2 Mg PO TID TAKES 1/2 OF A (4 MG) TABLET Divalproex Sodium 500 Mg Tablet.dr 500 Mg PO TID Pantoprazole Sodium 20 Mg Tablet.dr 20 Mg PO BID Nuedexta 20-10 mg Capsule (Dextromethorphan HBr/Quinidine) 1 Each Capsule 1 Cap PO DAILY Gabapentin 300 Mg Capsule 300 Mg PO 0800,1400 Levothyroxine Sodium 125 Mcg Tablet 125 Mcg PO 0800 Torsemide 10 Mg Tablet 10 Mg PO DAILY Duloxetine HCl 30 Mg Capsule.dr 30 Mg PO DAILY TAKES IN CONJUNCTION WITH DULOXETINE 60MG FOR A TOTAL DOSE OF 90MG DAILY Duloxetine HCl 60 Mg Capsule.dr 60 Mg PO DAILY TAKES IN CONJUNCTION WITH DULOXETINE 30MG FOR A TOTAL DOSE OF 90MG DAILY Diltiazem ER (Diltiazem HCl) 180 Mg Capsule.er 180 Mg PO DAILY Azithromycin 250 Mg Tablet 250 Mg PO HS STARTED ON 10/06/17 FOR A 4 DAY THERAPY Ventolin Hfa (Albuterol Sulfate) 18 Gm Hfa.aer.ad 1 Puff IH Q6H PRN Promethazine Tablet (Promethazine HCl) 25 Mg Tablet 25 Mg PO Q6H PRN Guaifenesin ER (Guaifenesin) 600 Mg Tab.er.12h 600 Mg PO Q12H PRN Magnesium Citrate 296 Ml Solution 140 Ml PO Q8H PRN Ibuprofen 200 Mg Tablet 800 Mg PO Q8H PRN TAKES 4 (200 MG) TABLETS Hyoscyamine Sulfate 0.125 Mg Tab.subl 0.125 Mg SL EVERY 2 HOURS PRN [place] (Menthol) 7.5 Mg Lozenge 7.5 Mg MM Q4H PRN Aspirin 325 Mg Tablet 325 Mg PO EVERY 4-6 HOURS PRN MAY ALSO BE GIVEN FOR ELEVATED TEMPERATURE Albuterol Sulfate 2.5 Mg/3 Ml Vial.neb 2.5 Mg IH Q8H PRN Lorazepam 0.5 Mg Tablet 0.5 Mg PO QID Morphine Sulfate ER (Morphine Sulfate) 15 Mg Tablet.er 15 Mg PO HS Muscle Rub Cream (Methyl Salicylate/Menthol) 113 Gm Cream..g. TP Q4H PRN Aspirin EC (Aspirin) 81 Mg Tablet.dr 81 Mg PO DAILY Probiotic (Saccharomyces Boulardii) 250 Mg Capsule 250 Mg PO DAILY Mylanta Suspension (Al Hydrox/Mg Hydrox/Simethicone) 30 Ml Oral.susp 30 Ml PO Q4H PRN Multi-Vitamin Daily (Multivitamin) 1 Each Tablet 1 Tab PO DAILY Fluticasone Propionate 16 Gm [place].susp 2 Sprays NSEACH DAILY Feosol (Ferrous Sulfate) 325 Mg Tablet 325 Mg PO TID Morphine Sulfate ER (Morphine Sulfate) 30 Mg Tablet.er 30 Mg PO DAILY Acetaminophen Extra Strength (Acetaminophen) 500 Mg Tablet 1,000 Mg PO Q4H PRN TAKES 2 (500 MG) TABLETS / NOT TO EXCEED 3GM IN 24 HOURS Gabapentin 300 Mg Capsule 600 Mg PO HS TAKES 2 (300MG) CAPSULES Myrbetriq (Mirabegron) 50 Mg Tab.er.24h 50 Mg PO HS Milk of Magnesia (Magnesium Hydroxide) 400 Mg/5 Ml Oral.susp 30 Ml PO DAILY PRN Advair 100-50 Diskus (Fluticasone/Salmeterol) 1 Each Blst.w.dev 1 Puff INH BID Cetirizine HCl 10 Mg Tablet 10 Mg PO DAILY Potassium Chloride 20 Meq Tab.er.prt 20 Meq PO DAILY Miralax (Polyethylene Glycol 3350) 17 Gm Powd.pack 17 Gm PO DAILY Isosorbide Mononitrate ER (Isosorbide Mononitrate) 60 Mg Tab 60 Mg PO DAILY Instructions to patient/family Please see electronic discharge instructions given to patient. Clinical Quality Measures DVT/VTE Risk/Contraindication: Risk Factor Score Per Nursin RFS Level Per Nursing on Admit: 4+=Very High EMELINA DIAZ MD Oct 10, 2017 13:44
[2017-10-10 15:17] VITALS: BP 126/71
== END 2017-10-10 15:17 | DRG 445 ==
LOC: ER 20:52 → EDUNIT# 20:52 → 4TH 22:52
PROVIDERS: ADMIT Surgery; ATTEND Surgery
DX: K80.10 Calculus of gallbladder with chronic cholecystitis without obstruction (principal); K43.9 Ventral hernia without obstruction or gangrene; E66.2 Morbid (severe) obesity with alveolar hypoventilation; Z68.45 Body mass index [BMI] 70 or greater, adult; I25.10 Atherosclerotic heart disease of native coronary artery without angina pectoris; I10 Essential (primary) hypertension; F31.9 Bipolar disorder, unspecified; F43.10 Post-traumatic stress disorder, unspecified; F41.9 Anxiety disorder, unspecified; E03.9 Hypothyroidism, unspecified; I48.91 Unspecified atrial fibrillation; J44.9 Chronic obstructive pulmonary disease, unspecified; F17.210 Nicotine dependence, cigarettes, uncomplicated; I25.2 Old myocardial infarction; Z86.73 Personal history of transient ischemic attack (TIA), and cerebral infarction without residual deficits
CPT/HCPCS: 36415; 71045; 74177; 76705; 80053; 81000; 82150; 83605; 83690; 85007; 85025; 85027; 85610; 85730; 86141; 87040; 87804; 94640; 94760; 96361; 96365; 96367; 96375

== ENCOUNTER → 2017-12-10 | Outpatient (CLI) | payer MEDICARE, MEDICAID ==
[~2017-12-10] MED LIST changes: +ALBU18HF2 IH; +ALBU2.5V4 IH; +ASPI-808 PO; +ASPI-983 PO; +AZIT250T12 PO; +CARI1.5C PO; +CEFD300C3 PO; +DEXT1CAP3 PO; +DILT180C82 PO; +DIVA-76 PO; +DULO30CA48 PO; +DULO60CA58 PO; +FLUT16SP22 NS; -FLUT16SP22 NSEACH; +GUAI600T86 PO; +HYOS-19 SL; +IBUP-1780 PO; +IBUP-2055 PO; +L. A1TAB10 PO; +LEVO125T6 PO; +LORA0.5T PO; +MAGN296S50 PO; +MENT7.5L3 MM; +METH113C21 TP; +MORP-33 PO; +MORP15TA PO; +NYST15CR TP; +ONDA4TAB10 PO; +PANT20TA3 PO; +PROM25TA14 PO; +RISP4TAB2 PO; +TORS10TA5 PO; +TRAZ-189 PO; -TRAZ-28 PO; +VITS42.53 TP; +[UNRECOGNIZED DRUG - OTHER] TP; +[UNRECOGNIZED DRUG - SUPPLY] TOP
== END ==
PROVIDERS: ATTEND Internal Medicine
DX: R50.9 Fever, unspecified (principal); R05 Cough
CPT/HCPCS: 87804

== ENCOUNTER → 2017-12-10 | Outpatient (CLI) | payer MEDICARE, MEDICAID ==
[2017-12-10 10:31] LABS: BASOPHILS % (AUTO) 0 % (0-10); EOSINOPHILS # (AUTO) 0.1 10^3/uL (0.0-0.3); EOSINOPHILS % (AUTO) 0 % (0-10); HEMATOCRIT 39 % (35-52); HEMOGLOBIN 12.9 G/DL (11.5-16.0); LYMPHOCYTES # (AUTO) 2.6 X 10^3 (1.0-4.0); LYMPHOCYTES % (AUTO) 16 % (12-44); MEAN CORPUSCULAR HEMOGLOBIN 33 PG (25-34); MEAN CORPUSCULAR HGB CONC 33 G/DL (32-36); MEAN CORPUSCULAR VOLUME 101 FL (80-99); MEAN PLATELET VOLUME 9.5 FL (7.4-10.4); MONOCYTES # (AUTO) 1.6 X 10^3 (0.0-1.0); MONOCYTES % (AUTO) 10 % (0-12); NEUTROPHILS # (AUTO) 11.7 X 10^3 (1.8-7.8); NEUTROPHILS % (AUTO) 73 % (42-75); PLATELET COUNT 185 10^3/uL (130-400); RED BLOOD COUNT 3.89 10^6/uL (4.35-5.85); RED CELL DISTRIBUTION WIDTH 12.7 % (10.0-14.5); WHITE BLOOD COUNT 15.9 10^3/uL (4.3-11.0)
[2017-12-10 10:48] LABS: ALANINE AMINOTRANSFERASE 11 U/L (0-55); ALBUMIN 3.5 GM/DL (3.2-4.5); ALKALINE PHOSPHATASE 65 U/L (40-136); BILIRUBIN,TOTAL 0.3 MG/DL (0.1-1.0); BUN/CREATININE RATIO 15; CALCIUM 8.6 MG/DL (8.5-10.1); CARBON DIOXIDE 32 MMOL/L (21-32); CHLORIDE 96 MMOL/L (98-107); CREATININE SERUM 0.53 MG/DL (0.60-1.30); GFR ESTIMATED > 60; GLUCOSE 125 MG/DL (70-105); POTASSIUM 4.3 MMOL/L (3.6-5.0); SODIUM 139 MMOL/L (135-145); TOTAL PROTEIN 6.3 GM/DL (6.4-8.2)
[2017-12-10 11:09] LABS: BAND NEUTROPHILS 3 %; BASOPHILS % (MANUAL) 0 %; EOSINOPHILS % (MANUAL) 0 %; LYMPHOCYTES % (MANUAL) 14 %; MONOCYTES % (MANUAL) 3 %; NEUTROPHILS % (MANUAL) 80 %; RBC MORPH NORMAL
== END ==
LOC: LABNPT 10:13
PROVIDERS: ATTEND Internal Medicine
DX: R50.9 Fever, unspecified (principal); R05 Cough
CPT/HCPCS: 80053; 85007; 85027

== ENCOUNTER 2018-01-23 14:22 | Emergency (ER) | payer MEDICARE, MEDICAID ==
[~2018-01-23] VITALS: Ht 172.7 cm; Wt 186.0 kg
[~2018-01-23 14:22] MED LIST changes: -CARI1.5C PO; -CEFD300C3 PO; -DIVA-76 PO; +DIVA500T7 PO; -IBUP-1780 PO; -L. A1TAB10 PO; -MORP15TA PO; -ONDA4TAB10 PO; -TRAZ-189 PO; +TRAZ-28 PO; -VITS42.53 TP; -[UNRECOGNIZED DRUG - SUPPLY] TOP
[2018-01-23 14:44] LABS: BASOPHILS % (AUTO) 0 % (0-10); EOSINOPHILS # (AUTO) 0.2 10^3/uL (0.0-0.3); EOSINOPHILS % (AUTO) 2 % (0-10); HEMATOCRIT 38 % (35-52); HEMOGLOBIN 12.8 G/DL (11.5-16.0); LYMPHOCYTES # (AUTO) 2.1 X 10^3 (1.0-4.0); LYMPHOCYTES % (AUTO) 23 % (12-44); MEAN CORPUSCULAR HEMOGLOBIN 34 PG (25-34); MEAN CORPUSCULAR HGB CONC 34 G/DL (32-36); MEAN CORPUSCULAR VOLUME 100 FL (80-99); MEAN PLATELET VOLUME 8.7 FL (7.4-10.4); MONOCYTES # (AUTO) 1.2 X 10^3 (0.0-1.0); MONOCYTES % (AUTO) 13 % (0-12); NEUTROPHILS # (AUTO) 5.7 X 10^3 (1.8-7.8); NEUTROPHILS % (AUTO) 62 % (42-75); PLATELET COUNT 204 10^3/uL (130-400); RED BLOOD COUNT 3.82 10^6/uL (4.35-5.85); RED CELL DISTRIBUTION WIDTH 12.9 % (10.0-14.5); WHITE BLOOD COUNT 9.2 10^3/uL (4.3-11.0)
--- NOTE | 2018-01-23 14:44 | ED Chest Pain ---
General Chief Complaint: Chest Pain Stated Complaint: CP Nursing Triage Note: C/O chest pain and L arm pain starting about 130. patient reports that she was too have her morphine and ativan around 2pm and became upset and having chest pain when it wasn't time for her to have it Nursing Sepsis Screen: No Definite Risk History of Present Illness Date Seen by Provider: January 23, 2018 Time Seen by Provider: 14:35 Initial Comments 57-year-old female resident of [facility] reports having chest pain earlier today, however it resolved within 20 minutes without treatment. She reports that she was demanding her Ativan and morphine prior to the scheduled time of 2:00 when it was to be administered. She denies any chest pain at this time however reports she is having mid and lower back pain, these are chronic for her. Timing/Duration: 1-3 hours Severity/Quality: mild Location: substernal (resolved), back (currently) Radiation: no radiation Activities at Onset: none Prior CP/Workup: cardiac cath, echocardiography, heart attack ASA po BANQUET COORDINATOR: No NTG SL BANQUET COORDINATOR: No Allergies and Home Medications Allergies Coded Allergies: Sulfa (Sulfonamide Antibiotics) (Unverified Allergy, Unknown, 08/14/16) amoxapine (Unverified Allergy, Unknown, 01/23/16) amoxicillin (Unverified Allergy, Unknown, 01/03/16) amphetamine (Unverified Allergy, Unknown, 08/14/16) aripiprazole (Unverified Allergy, Unknown, 01/03/16) bupropion (Unverified Allergy, Unknown, 01/03/16) chlorpromazine (Unverified Allergy, Unknown, 01/03/16) clozapine (Unverified Allergy, Unknown, 01/03/16) dextroamphetamine (Unverified Allergy, Unknown, 01/03/16) dextromethorphan (Unverified Allergy, Unknown, 01/03/16) furosemide (Unverified Allergy, Unknown, 01/03/16) haloperidol (Unverified Allergy, Unknown, 01/03/16) latex (Unverified Allergy, Unknown, 01/03/16) lavender (Lavandula angustifolia) (Unverified Allergy, Unknown, 01/03/16) lithium (Unverified Allergy, Unknown, 01/03/16) loxapine (Unverified Allergy, Unknown, 01/03/16) meperidine (Unverified Allergy, Unknown, 01/03/16) olanzapine (Unverified Allergy, Unknown, 01/03/16) phentermine (Unverified Allergy, Unknown, 01/03/16) risperidone (Unverified Allergy, Unknown, 01/03/16) Home Medications Acetaminophen 500 Mg Tablet, 1,000 MG PO Q4H PRN for PAIN/FEVER, (Reported) TAKES 2 (500 MG) TABLETS / NOT TO EXCEED 3GM IN 24 HOURS Albuterol Sulfate 2.5 Mg/3 Ml Vial.neb, 2.5 MG IH Q8H PRN for SHORTNESS OF BREATH, (Reported) Albuterol Sulfate 18 Gm Hfa.aer.ad, 1 PUFF IH Q6H PRN for SHORTNESS OF BREATH, ( Reported) Aspirin 81 Mg Tablet.dr, 81 MG PO DAILY, (Reported) Aspirin 325 Mg Tablet, 325 MG PO EVERY 4-6 HOURS PRN for PAIN-MILD, (Reported) MAY ALSO BE GIVEN FOR ELEVATED TEMPERATURE Azithromycin 250 Mg Tablet, 250 MG PO HS, (Reported) STARTED ON 10/06/17 FOR A 4 DAY THERAPY Cefuroxime Axetil 500 Mg Tablet, 500 MG PO BID Prescribed by: YANA TOUSSAINT on 09/26/16 1637 Cetirizine HCl 10 Mg Tablet, 10 MG PO DAILY, (Reported) Dextromethorphan HBr/Quinidine 1 Each Capsule, 1 CAP PO DAILY, (Reported) Diltiazem HCl 180 Mg Capsule.er, 180 MG PO DAILY, (Reported) Divalproex Sodium 500 Mg Tablet.dr, 500 MG PO TID, (Reported) Duloxetine HCl 60 Mg Capsule.dr, 60 MG PO DAILY, (Reported) TAKES IN CONJUNCTION WITH DULOXETINE 30MG FOR A TOTAL DOSE OF 90MG DAILY Duloxetine HCl 30 Mg Capsule.dr, 30 MG PO DAILY, (Reported) TAKES IN CONJUNCTION WITH DULOXETINE 60MG FOR A TOTAL DOSE OF 90MG DAILY Ferrous Sulfate 325 Mg Tablet, 325 MG PO TID, (Reported) Fluticasone Propionate 16 Gm [place].susp, 2 SPRAYS NSEACH DAILY, (Reported) Fluticasone/Salmeterol 1 Each Blst.w.dev, 1 PUFF INH BID, (Reported) Gabapentin 300 Mg Capsule, 600 MG PO HS, (Reported) TAKES 2 (300MG) CAPSULES Gabapentin 300 Mg Capsule, 300 MG PO 0800,1400, (Reported) Guaifenesin 600 Mg Tab.er.12h, 600 MG PO Q12H PRN for COUGH, (Reported) Hyoscyamine Sulfate 0.125 Mg Tab.subl, 0.125 MG SL EVERY 2 HOURS PRN for EXCESSIVE SECRETIONS, (Reported) Ibuprofen 200 Mg Tablet, 800 MG PO Q8H PRN for PAIN-MILD, (Reported) TAKES 4 (200 MG) TABLETS Isosorbide Mononitrate 60 Mg Tab, 60 MG PO DAILY, (Reported) Levothyroxine Sodium 125 Mcg Tablet, 125 MCG PO 0800, (Reported) Lorazepam 0.5 Mg Tablet, 0.5 MG PO QID, (Reported) Mag Hydrox/Al Hydrox/Simeth 30 Ml Oral.susp, 30 ML PO Q4H PRN for INDIGESTION, ( Reported) Magnesium Citrate 296 Ml Solution, 140 ML PO Q8H PRN for CONSTIPATION-9TH LINE, (Reported) Magnesium Hydroxide 400 Mg/5 Ml Oral.susp, 30 ML PO DAILY PRN for CONSTIPATION, (Reported) Menthol 7.5 Mg Lozenge, 7.5 MG MM Q4H PRN for COUGH, (Reported) Methyl Salicylate/Menthol 113 Gm Cream..g., TP Q4H PRN for PAIN, (Reported) Mirabegron 50 Mg Tab.er.24h, 50 MG PO HS, (Reported) Morphine Sulfate 30 Mg Tablet.er, 30 MG PO DAILY, (Reported) Morphine Sulfate 15 Mg Tablet.er, 15 MG PO HS, (Reported) Multivitamin 1 Each Tablet, 1 TAB PO DAILY, (Reported) Nystatin 15 Gm Cream..g., TP Q12H PRN for RASH, (Reported) Pantoprazole Sodium 20 Mg Tablet.dr, 20 MG PO BID, (Reported) Polyethylene Glycol 3350 17 Gm Powd.pack, 17 GM PO DAILY, (Reported) Potassium Chloride 20 Meq Tab.er.prt, 20 MEQ PO DAILY, (Reported) Promethazine HCl 25 Mg Tablet, 25 MG PO Q6H PRN for NAUSEA/VOMITING, (Reported) Risperidone 4 Mg Tablet, 2 MG PO TID, (Reported) TAKES 1/2 OF A (4 MG) TABLET Saccharomyces Boulardii 250 Mg Capsule, 250 MG PO DAILY, (Reported) Torsemide 10 Mg Tablet, 10 MG PO DAILY, (Reported) [Duoderm] , TP EVERY 3 DAYS, (Reported) Patient Home Medication List Home Medication List Reviewed: Yes Review of Systems Constitutional: no symptoms reported, see HPI Cardiovascular: See HPI, Chest Pain (patient now reports it was anxiety related because the staff would not give her medication early) Musculoskeletal: see HPI, back pain All Other Systems Reviewed Negative Unless Noted: Yes Past Putvptw-Uhorgu-Jxdjja Hx Past Med/Social Hx: Reviewed Nursing Past Med/Soc Hx Patient Social History Alcohol Use: Denies Use Recreational Drug Use: No Smoking Status: Current Everyday Smoker Type Used: Cigarettes Former Smoker, Quit: Aug 29, 2016 2nd Hand Smoke Exposure: No Recent Foreign Travel: No Contact w/Someone Who Travel: No Recent Infectious Disease Expo: No Recent Hopitalizations: No Immunizations Up To Date Tetanus Booster (TDap): Unknown Date of Influenza Vaccine: May 29, 2017 Seasonal Allergies Seasonal Allergies: No Past Medical History Surgeries: Yes (cervix) Tubal Ligation Respiratory: Yes Asthma, COPD Currently Using CPAP: No (supposed to but doesn't) Cardiac: Yes Atrial Fibrillation, Heart Attack, Hypertension Neurological: No Stroke Reproductive Disorders: No 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 Sexually Transmitted Disease: No HIV/AIDS: No Genitourinary: Yes Renal Failure Gastrointestinal: Yes Abdominal Hernia, Gall Bladder Disease Musculoskeletal: Yes (SPINAL STENOSIS) Back Injury Endocrine: Yes Hypothyroidsim HEENT: No Cancer: Yes Skin Psychosocial: Yes Anxiety, PTSD, Bipolar, Depression Integumentary: No Blood Disorders: No Adverse Reaction/Blood Tranf: No Family Medical History Heart Disease, Cancer, Cerebral Aneurysm Physical Exam Vital Signs Vital Signs - First Documented 01/23/18 14:28 Temp 98.2 Pulse 80 Resp 16 B/P (MAP) 124/87 (99) Pulse Ox 95 O2 Delivery Room Air Capillary Refill : Less Than 3 Seconds General Appearance: No Apparent Distress, WD/WN HEENT: PERRL/EOMI, TMs Normal, Normal ENT Inspection, Pharynx Normal Neck: Full Range of Motion, Normal Inspection, Non Tender Respiratory: Chest Non Tender, Lungs Clear Cardiovascular: Regular Rate, Rhythm, No Murmur, Normal Peripheral Pulses Gastrointestinal: Normal Bowel Sounds, Non Tender, Distended Neurologic/Psychiatric: Alert, Oriented x3, No Motor/Sensory Deficits, Normal Mood/Affect Skin: Normal Color, Warm/Dry, Erythema (trace on left hand, patient concerned with cellulitis, no evidence of cellulitis at this time) Progress/Results/Core Measures Results/Orders Lab Results Laboratory Tests Test 01/23/18 14:36 Range/Units White Blood Count 9.2 4.3-11.0 10^3/uL Red Blood Count 3.82 L 4.35-5.85 10^6/uL Hemoglobin 12.8 11.5-16.0 G/DL Hematocrit 38 35-52 % Mean Corpuscular Volume 100 H 80-99 FL Mean Corpuscular Hemoglobin 34 25-34 PG Mean Corpuscular Hemoglobin Concent 34 32-36 G/DL Red Cell Distribution Width 12.9 10.0-14.5 % Platelet Count 204 130-400 10^3/uL Mean Platelet Volume 8.7 7.4-10.4 FL Neutrophils (%) (Auto) 62 42-75 % Lymphocytes (%) (Auto) 23 12-44 % Monocytes (%) (Auto) 13 H 0-12 % Eosinophils (%) (Auto) 2 0-10 % Basophils (%) (Auto) 0 0-10 % Neutrophils # (Auto) 5.7 1.8-7.8 X 10^3 Lymphocytes # (Auto) 2.1 1.0-4.0 X 10^3 Monocytes # (Auto) 1.2 H 0.0-1.0 X 10^3 Eosinophils # (Auto) 0.2 0.0-0.3 10^3/uL Basophils # (Auto) 0.0 0.0-0.1 10^3/uL Prothrombin Time 12.7 12.2-14.7 SEC INR Comment 1.0 0.8-1.4 Activated Partial Thromboplast Time 30 24-35 SEC Sodium Level 138 135-145 MMOL/L Potassium Level 4.3 3.6-5.0 MMOL/L Chloride Level 97 L 98-107 MMOL/L Carbon Dioxide Level 28 21-32 MMOL/L Anion Gap 13 5-14 MMOL/L Blood Urea Nitrogen 8 7-18 MG/DL Creatinine 0.72 0.60-1.30 MG/DL Estimat Glomerular Filtration Rate > 60 BUN/Creatinine Ratio 11 Glucose Level 251 H 70-105 MG/DL Calcium Level 9.1 8.5-10.1 MG/DL Magnesium Level 1.7 L 1.8-2.4 MG/DL Total Bilirubin 0.2 0.1-1.0 MG/DL Aspartate Amino Transf (AST/SGOT) 13 5-34 U/L Alanine Aminotransferase (ALT/SGPT) 14 0-55 U/L Alkaline Phosphatase 73 40-136 U/L Troponin I < 0.30 <0.30 NG/ML Total Protein 7.1 6.4-8.2 GM/DL Albumin 3.5 3.2-4.5 GM/DL My Orders Orders - CAROLDENISHA Cbc With Automated Diff (01/23/18 14:32) Magnesium (01/23/18 14:32) Chest 1 View, Ap/Pa Only (01/23/18 14:32) Ekg Tracing (01/23/18 14:32) Cardiac Profile 1 (01/23/18 14:32) Comprehensive Metabolic Panel (01/23/18 14:32) Protime With Inr (01/23/18 14:32) Partial Thromboplastin Time (01/23/18 14:32) O2 (01/23/18 14:32) Monitor-Rhythm Ecg Trace Only (01/23/18 14:32) Saline Lock/Iv-Start (01/23/18 14:32) Lorazepam Tablet (Ativan Tablet) (01/23/18 14:45) Morphine Injection (Morphine Injection (01/23/18 15:52) Medications Given in ED Current Medications Medications Dose Ordered Sig/Flavio Route Start Time Stop Time Status Last Admin Dose Admin Lorazepam 0.5 mg ONCE ONCE PO 01/23/18 14:45 01/23/18 14:46 DC 01/23/18 14:59 0.5 MG Vital Signs/I&O 01/23/18 01/23/18 01/23/18 14:28 14:28 16:31 Temp 98.2 Pulse 80 84 Resp 16 18 B/P (MAP) 124/87 (99) 158/98 Pulse Ox 95 95 O2 Delivery Room Air Room Air Blood Pressure Mean: 99 Progress Progress Note : Time: 14:35 Progress Note Initial evaluation completed, recommended EKG and labs. Will give Ativan 0.5 mg by mouth for anxiety. Initial EKG showed no acute abnormalities. 1515 labs to this point have all been normal. With an elevated glucose of 251. The patient denies history of diabetes. Patient denies any further chest pain and reports her back pain to be improved. 1530 morphine 4 mg IV for pain, upper/middle back. She continues to deny chest pain 1600 patient reports pain and anxiety being managed at this time, discharge instructions and return precautions reviewed with the patient in detail. All questions answered. Initial ECG Impression Date: January 23, 2018 Initial ECG Impression Time: 14:33 Initial ECG Rate: 80 Initial ECG Rhythm: Normal Sinus Initial ECG Intervals: Normal Initial ECG Intervals [place] 176, QRS D1 1 02, QT 392, QTC 453. Gordon P 24, QRS 36, T 61. Initial ECG Impression: Normal Initial ECG Comparisson: Unchanged Comment Reviewed with Dr. Graham, concurred with the interpretation. Diagnostic Imaging Diagonstic Imaging: Xray Plain Films/CT/US/NM/MRI: chest Comments NAME: [facility] REC#: [id number] PT STATUS: REG ER : 1960 PHYSICIAN: DENISHA MEDINA ADMIT DATE: 01/23/18/ER Draft Date of Exam:01/23/18 CHEST 1 VIEW, AP/PA ONLY EXAM: Portable erect AP chest at 2:51 p.m. INDICATION: Chest pain FINDINGS: This exam is less than optimal as the patient is rotated. Allowing for this technical factor, the heart size is stable when compared to 10/07/2017. The lungs are clear. There is no evidence for failure, pneumonia or for a pleural effusion. The mediastinum is not widened. The osseous structures are intact. IMPRESSION: Allowing for the rotation of the patient, there has been no adverse change since the prior exam. There is no acute abnormality identified. Dictated on workstation # [id number] Dict: 01/23/18 1512 Trans: 01/23/18 1518 [facility] [id number] Interpreted by: WESTLEY LOPEZ MD Electronically signed by: Reviewed: Reviewed by Me Departure Impression Primary Impression: Upper back pain, chronic Additional Impressions: Hyperglycemia Chest pain, atypical Disposition: XF SNF Condition: Stable Departure-Patient Inst. Decision time for Depature: 16:00 Referrals: BOBBY RDZ MD (PCP) Primary Care Physician FRANK ORNELAS APRN (Family) Primary Care Physician Patient Instructions: Chest Pain That Is Not Caused by the Heart (DC) Add. Discharge Instructions: Ice to left hand every 4 hours while awake. Check fasting blood sugar each morning, report results to Frank Ornelas APRN Continue all home medication as previously prescribed. Return to emergency department for urgent health care needs. All discharge instructions reviewed with patient and/or family. Voiced understanding. Copy Copies To 1: FRANK ORNELAS APRN, AMY ARNP January 23, 2018 14:44
[2018-01-23] MEDS ORDERED: LORazepam 0.5 MG (ATIVAN) TABLET PO ONE (14:45)
[2018-01-23 14:58] LABS: PROTHROMBIN TIME PATIENT 12.7 SEC (12.2-14.7)
[2018-01-23 15:07] LABS: ALANINE AMINOTRANSFERASE 14 U/L (0-55); ALBUMIN 3.5 GM/DL (3.2-4.5); ALKALINE PHOSPHATASE 73 U/L (40-136); BILIRUBIN,TOTAL 0.2 MG/DL (0.1-1.0); BUN/CREATININE RATIO 11; CALCIUM 9.1 MG/DL (8.5-10.1); CARBON DIOXIDE 28 MMOL/L (21-32); CHLORIDE 97 MMOL/L (98-107); CREATININE SERUM 0.72 MG/DL (0.60-1.30); GFR ESTIMATED > 60; GLUCOSE 251 MG/DL (70-105); MAGNESIUM 1.7 MG/DL (1.8-2.4); POTASSIUM 4.3 MMOL/L (3.6-5.0); SODIUM 138 MMOL/L (135-145); TOTAL PROTEIN 7.1 GM/DL (6.4-8.2)
--- NOTE | 2018-01-23 15:18 | Diagnostic Imaging Report ---
EXAM: Portable erect AP chest at 2:51 p.m. INDICATION: Chest pain FINDINGS: This exam is less than optimal as the patient is rotated. Allowing for this technical factor, the heart size is stable when compared to 10/07/2017. The lungs are clear. There is no evidence for failure, pneumonia or for a pleural effusion. The mediastinum is not widened. The osseous structures are intact. IMPRESSION: Allowing for the rotation of the patient, there has been no adverse change since the prior exam. There is no acute abnormality identified. Dictated by: Dictated on workstation # [id number]
[2018-01-23] MEDS ORDERED: morphine INJ 10 MG/ML 1ML (SYR OR VIAL) IVP STA (15:52)
[2018-01-23 16:31] VITALS: BP 158/98
== END 2018-01-23 16:34 ==
LOC: EDUNIT# 14:22 → ER 14:23
DX: G89.29 Other chronic pain (principal); M54.6 Pain in thoracic spine; R73.9 Hyperglycemia, unspecified; R07.89 Other chest pain; F41.9 Anxiety disorder, unspecified; F31.9 Bipolar disorder, unspecified; F43.10 Post-traumatic stress disorder, unspecified; E03.9 Hypothyroidism, unspecified; I48.91 Unspecified atrial fibrillation; I25.2 Old myocardial infarction; I10 Essential (primary) hypertension; J44.9 Chronic obstructive pulmonary disease, unspecified; Z87.891 Personal history of nicotine dependence; Z79.82 Long term (current) use of aspirin; Z79.51 Long term (current) use of inhaled steroids; Z98.51 Tubal ligation status; Z98.890 Other specified postprocedural states; Z87.19 Personal history of other diseases of the digestive system; Z86.73 Personal history of transient ischemic attack (TIA), and cerebral infarction without residual deficits; Z85.828 Personal history of other malignant neoplasm of skin; Z82.49 Family history of ischemic heart disease and other diseases of the circulatory system; Z88.1 Allergy status to other antibiotic agents; Z88.2 Allergy status to sulfonamides; Z88.5 Allergy status to narcotic agent; Z88.6 Allergy status to analgesic agent; Z88.8 Allergy status to other drugs, medicaments and biological substances; Z91.040 Latex allergy status
CPT/HCPCS: 36415; 71045; 80053; 83735; 84484; 85025; 85610; 85730; 93005; 93041; 96374

== ENCOUNTER 2018-02-07 22:34 | Inpatient (IN) | payer MEDICARE, MEDICAID ==
[~2018-02-07] VITALS: Ht 172.7 cm; Wt 188.8 kg
--- OUTSIDE RECORDS SUMMARY | 2018-02-07 22:39 | XMS REPORT | Clinical Summary ---
Author Author [facility] Address Unknown Phone Unavailable Care Team Providers Care Quality Control Lab Technician Name Role Phone PP Unavailable Allergies No Known Allergies Current Medications Prescription Sig. Disp. Refills Start End Date Status Date oxyCODONE (OXYCONTIN) 40 Take 1 tablet (40 mg 60 tablet 0 12/26/19 Active MG 12 hr total) by mouth every 12 14 tabletIndications: (twelve) hours. Moderate to Severe Indications: Moderate to Chronic Pain Severe Chronic Pain nystatin (NYSTOP) 694094 Apply topically 2 (two) Active UNIT/GM POWD [...] Cancer 2009 Screening-Mammogram Colon Cancer Screening 2009 Zoster Recombinant 2009 Vaccine (RZV,Shingrix) (1 of 2 - [facility] 2 Dose Standard) Influenza Vaccine (Season 04/29/2018 Ended) Results Not on filefrom Last 3 Months
--- OUTSIDE RECORDS SUMMARY | 2018-02-07 22:39 | XMS REPORT | Clinical Summary ---
Author Author [facility] Organization [facility] Address Unknown Phone Unavailable Care Team Providers Care Cigar Sorter Name Role Phone Kimberly Sood APRN Unavailable [...] in the Health Information Management department at [phone] for further assistance in locating additional records.[facility] Allergies Active Allergy Reactions Severity Noted Date [...] PHYSICAL (COMPREHENSIVE) 1966 EXAM PERTUSSIS VACCINE 1970 HIV SCREENING 1974 TETANUS VACCINE 02/26/1976 CERVICAL CANCER SCREENING 1989 BREAST CANCER SCREENING 1999 COLORECTAL CANCER 2009 SCREENING INFLUENZA VACCINE 05/29/2018 Results Not on filefrom Last 3 Months
[2018-02-07 23:00] VITALS: BP 89/64
[2018-02-07] MEDS ORDERED: CEFEPIME INJECTION 2,000 MG in NS (IVPB) 50 ML IV ONE (23:00)
--- NOTE | 2018-02-07 23:02 | ED General ---
General Chief Complaint: Respiratory Problems Stated Complaint: SOA Nursing Triage Note: Patient reports having SOA with a cough. Patient also states she is lethargic Nursing Sepsis Screen: No Definite Risk Source of Information: Patient, EMS, Retirement Records, Old Records Exam Limitations: Other (clinical condition) History of Present Illness Date Seen by Provider: Feb 07, 2018 Time Seen by Provider: 22:50 Initial Comments The patient presents to the ER by EMS from the [facility] with a chief complaint that today she's been feeling ill not wanting to get out of bed, somnolent and they had to sternal rub her to get her to wake up most recently. They found that her oxygen sats on her normal 3 L per nasal cannula were around the mid 80s. They did not turn up her oxygen because her PCP just said to call the EMS. She says she has some pain in her chest which is chronic and a hernia in her right upper quadrant abdomen. She does not member the last time she had a bowel movement. She says she feels a little short of breath is been coughing. Her chest pains made worse by deep inspiration or pressing on her chest. She does not think she's had any fever or chills. Allergies and Home Medications Allergies Coded Allergies: Sulfa (Sulfonamide Antibiotics) (Unverified Allergy, Unknown, 08/14/16) amoxapine (Unverified Allergy, Unknown, 01/23/16) amoxicillin (Unverified Allergy, Unknown, 01/03/16) amphetamine (Unverified Allergy, Unknown, 08/14/16) aripiprazole (Unverified Allergy, Unknown, 01/03/16) bupropion (Unverified Allergy, Unknown, 01/03/16) chlorpromazine (Unverified Allergy, Unknown, 01/03/16) clozapine (Unverified Allergy, Unknown, 01/03/16) dextroamphetamine (Unverified Allergy, Unknown, 01/03/16) dextromethorphan (Unverified Allergy, Unknown, 01/03/16) furosemide (Unverified Allergy, Unknown, 01/03/16) haloperidol (Unverified Allergy, Unknown, 01/03/16) latex (Unverified Allergy, Unknown, 01/03/16) lavender (Lavandula angustifolia) (Unverified Allergy, Unknown, 01/03/16) lithium (Unverified Allergy, Unknown, 01/03/16) loxapine (Unverified Allergy, Unknown, 01/03/16) meperidine (Unverified Allergy, Unknown, 01/03/16) olanzapine (Unverified Allergy, Unknown, 01/03/16) phentermine (Unverified Allergy, Unknown, 01/03/16) risperidone (Unverified Allergy, Unknown, 01/03/16) Home Medications Acetaminophen 500 Mg Tablet, 1,000 MG PO Q4H PRN for PAIN/FEVER, (Reported) TAKES 2 (500 MG) TABLETS / NOT TO EXCEED 3GM IN 24 HOURS Albuterol Sulfate 2.5 Mg/3 Ml Vial.neb, 2.5 MG IH Q8H PRN for SHORTNESS OF BREATH, (Reported) Albuterol Sulfate 18 Gm Hfa.aer.ad, 1 PUFF IH Q6H PRN for SHORTNESS OF BREATH, ( Reported) Aspirin 81 Mg Tablet.dr, 81 MG PO DAILY, (Reported) Aspirin 325 Mg Tablet, 325 MG PO EVERY 4-6 HOURS PRN for PAIN-MILD, (Reported) MAY ALSO BE GIVEN FOR ELEVATED TEMPERATURE Azithromycin 250 Mg Tablet, 250 MG PO HS, (Reported) STARTED ON 10/06/17 FOR A 4 DAY THERAPY Cefuroxime Axetil 500 Mg Tablet, 500 MG PO BID Prescribed by: YANA TOUSSAINT on 09/26/16 1637 Cetirizine HCl 10 Mg Tablet, 10 MG PO DAILY, (Reported) Dextromethorphan HBr/Quinidine 1 Each Capsule, 1 CAP PO DAILY, (Reported) Diltiazem HCl 180 Mg Capsule.er, 180 MG PO DAILY, (Reported) Divalproex Sodium 500 Mg Tablet.dr, 500 MG PO TID, (Reported) Duloxetine HCl 60 Mg Capsule.dr, 60 MG PO DAILY, (Reported) TAKES IN CONJUNCTION WITH DULOXETINE 30MG FOR A TOTAL DOSE OF 90MG DAILY Duloxetine HCl 30 Mg Capsule.dr, 30 MG PO DAILY, (Reported) TAKES IN CONJUNCTION WITH DULOXETINE 60MG FOR A TOTAL DOSE OF 90MG DAILY Ferrous Sulfate 325 Mg Tablet, 325 MG PO TID, (Reported) Fluticasone Propionate 16 Gm Moran.susp, 2 SPRAYS NSEACH DAILY, (Reported) Fluticasone/Salmeterol 1 Each Blst.w.dev, 1 PUFF INH BID, (Reported) Gabapentin 300 Mg Capsule, 600 MG PO HS, (Reported) TAKES 2 (300MG) CAPSULES Gabapentin 300 Mg Capsule, 300 MG PO 0800,1400, (Reported) Guaifenesin 600 Mg Tab.er.12h, 600 MG PO Q12H PRN for COUGH, (Reported) Hyoscyamine Sulfate 0.125 Mg Tab.subl, 0.125 MG SL EVERY 2 HOURS PRN for EXCESSIVE SECRETIONS, (Reported) Ibuprofen 200 Mg Tablet, 800 MG PO Q8H PRN for PAIN-MILD, (Reported) TAKES 4 (200 MG) TABLETS Isosorbide Mononitrate 60 Mg Tab, 60 MG PO DAILY, (Reported) Levothyroxine Sodium 125 Mcg Tablet, 125 MCG PO 0800, (Reported) Lorazepam 0.5 Mg Tablet, 0.5 MG PO QID, (Reported) Mag Hydrox/Al Hydrox/Simeth 30 Ml Oral.susp, 30 ML PO Q4H PRN for INDIGESTION, ( Reported) Magnesium Citrate 296 Ml Solution, 140 ML PO Q8H PRN for CONSTIPATION-9TH LINE, (Reported) Magnesium Hydroxide 400 Mg/5 Ml Oral.susp, 30 ML PO DAILY PRN for CONSTIPATION, (Reported) Menthol 7.5 Mg Lozenge, 7.5 MG MM Q4H PRN for COUGH, (Reported) Methyl Salicylate/Menthol 113 Gm Cream..g., TP Q4H PRN for PAIN, (Reported) Mirabegron 50 Mg Tab.er.24h, 50 MG PO HS, (Reported) Morphine Sulfate 30 Mg Tablet.er, 30 MG PO DAILY, (Reported) Morphine Sulfate 15 Mg Tablet.er, 15 MG PO HS, (Reported) Multivitamin 1 Each Tablet, 1 TAB PO DAILY, (Reported) Nystatin 15 Gm Cream..g., TP Q12H PRN for RASH, (Reported) Pantoprazole Sodium 20 Mg Tablet.dr, 20 MG PO BID, (Reported) Polyethylene Glycol 3350 17 Gm Powd.pack, 17 GM PO DAILY, (Reported) Potassium Chloride 20 Meq Tab.er.prt, 20 MEQ PO DAILY, (Reported) Promethazine HCl 25 Mg Tablet, 25 MG PO Q6H PRN for NAUSEA/VOMITING, (Reported) Risperidone 4 Mg Tablet, 2 MG PO TID, (Reported) TAKES 1/2 OF A (4 MG) TABLET Saccharomyces Boulardii 250 Mg Capsule, 250 MG PO DAILY, (Reported) Torsemide 10 Mg Tablet, 10 MG PO DAILY, (Reported) [Duoderm] , TP EVERY 3 DAYS, (Reported) Patient Home Medication List Home Medication List Reviewed: Yes Review of Systems Constitutional: see HPI (patient unable or unwilling to give a review of systems.) Past Waqaefo-Ajnhho-Znrwjv Hx Patient Social History Alcohol Use: Denies Use Recreational Drug Use: No Smoking Status: Current Everyday Smoker Type Used: Cigarettes Former Smoker, Quit: Aug 29, 2016 2nd Hand Smoke Exposure: No Recent Foreign Travel: No Contact w/Someone Who Travel: No Recent Infectious Disease Expo: No Recent Hopitalizations: No Immunizations Up To Date Tetanus Booster (TDap): Unknown Date of Influenza Vaccine: May 29, 2017 Seasonal Allergies Seasonal Allergies: No Past Medical History Surgeries: Yes (cervix) Tubal Ligation Respiratory: Yes Asthma, COPD Currently Using CPAP: No (supposed to but doesn't) Cardiac: Yes Atrial Fibrillation, Heart Attack, Hypertension Neurological: No Stroke Reproductive Disorders: No EMERGENCY CARE TECH History: Menopausal Sexually Transmitted Disease: No HIV/AIDS: No Genitourinary: Yes Renal Failure Gastrointestinal: Yes Abdominal Hernia, Gall Bladder Disease Musculoskeletal: Yes (SPINAL STENOSIS) Back Injury Endocrine: Yes Hypothyroidsim HEENT: No Cancer: Yes Skin Psychosocial: Yes Anxiety, PTSD, Bipolar, Depression Integumentary: No Blood Disorders: No Adverse Reaction/Blood Tranf: No Family Medical History Heart Disease, Cancer, Cerebral Aneurysm Physical Exam-Suspected Sepsis Physical Exam Vital Signs Vital Signs - First Documented 02/07/18 22:39 Temp 99.8 Pulse 85 Resp 16 B/P (MAP) 97/53 (68) Pulse Ox 95 O2 Delivery Room Air O2 Flow Rate 4.00 Capillary Refill : Less Than 3 Seconds Blood Pressure Mean: 68 General Appearance: Moderate Distress, Obese Eyes: Bilateral Eye Normal Inspection, Bilateral Eye PERRL, Bilateral Eye EOMI HEENT: PERRL/EOMI, TMs Normal, Normal ENT Inspection; No Moist Mucous Membranes Neck: Full Range of Motion, Normal Inspection, Non Tender Respiratory: Chest Non Tender, Lungs Clear, Normal Breath Sounds, No Accessory Muscle Use, Respiratory Distress (mild respiratory distress) Cardiovascular: Regular Rate, Rhythm, Normal Peripheral Pulses Gastrointestinal: Normal Bowel Sounds, Non Tender, Soft, Hernia (right upper quadrant large, chronic abdominal wall hernia is reducible.) Extremity: Normal Capillary Refill, Non Tender, No Calf Tenderness Neurologic/Psychiatric: Other (somnolent, GCS 13) Skin: normal color, warm/dry; No damp Focused Exam Sepsis Stage: Septic Shock Possible Source: Genitouriary Lactate Level 02/07/18 22:56: Lactic Acid Level 0.80 Time of Focused Exam: 00:54 Respiratory: Chest Non Tender, Lungs Clear, Normal Breath Sounds, No Accessory Muscle Use, No Respiratory Distress Cardiovascular: Regular Rate, Rhythm, Normal Peripheral Pulses Capillary Refill: Less Than 3 Seconds Peripheral Pulses: 2+ Radial Pulses (R), 2+ Radial Pulses (L) Skin: normal color, warm/dry Lactic Acid Level Laboratory Tests Test 02/07/18 22:56 Lactic Acid Level 0.80 MMOL/L (0.50-2.00) Progress/Results/Core Measures Suspected Sepsis Recent Fever Within 48 Hours: No Infection Criteria Present: Suspected New Infection New/Unexplained Altered Menta: No Sepsis Screen: No Definite Risk SIRS Temperature:99.8 Pulse: 85 Respiratory Rate: 16 Laboratory Tests 02/07/18 22:44: White Blood Count 12.5H Blood Pressure 97 /53 Mean: 68 02/07/18 22:56: Lactic Acid Level 0.80 Laboratory Tests 02/07/18 22:44: Creatinine 2.08H, INR Comment 1.0, Platelet Count 248, Total Bilirubin 0.3 Results/Orders Lab Results Laboratory Tests Test 02/07/18 22:44 02/07/18 22:52 02/07/18 22:56 Range/Units White Blood Count 12.5 H 4.3-11.0 10^3/uL Red Blood Count 3.62 L 4.35-5.85 10^6/uL Hemoglobin 12.7 11.5-16.0 G/DL Hematocrit 37 35-52 % Mean Corpuscular Volume 102 H 80-99 FL Mean Corpuscular Hemoglobin 35 H 25-34 PG Mean Corpuscular Hemoglobin Concent 34 32-36 G/DL Red Cell Distribution Width 13.0 10.0-14.5 % Platelet Count 248 130-400 10^3/uL Mean Platelet Volume 9.4 7.4-10.4 FL Neutrophils (%) (Auto) 66 42-75 % Lymphocytes (%) (Auto) 24 12-44 % Monocytes (%) (Auto) 9 0-12 % Eosinophils (%) (Auto) 1 0-10 % Basophils (%) (Auto) 0 0-10 % Neutrophils # (Auto) 8.2 H 1.8-7.8 X 10^3 Lymphocytes # (Auto) 3.0 1.0-4.0 X 10^3 Monocytes # (Auto) 1.2 H 0.0-1.0 X 10^3 Eosinophils # (Auto) 0.1 0.0-0.3 10^3/uL Basophils # (Auto) 0.0 0.0-0.1 10^3/uL Prothrombin Time 13.4 12.2-14.7 SEC INR Comment 1.0 0.8-1.4 Activated Partial Thromboplast Time 30 24-35 SEC Sodium Level 137 135-145 MMOL/L Potassium Level 5.1 H 3.6-5.0 MMOL/L Chloride Level 94 L 98-107 MMOL/L Carbon Dioxide Level 30 21-32 MMOL/L Anion Gap 13 5-14 MMOL/L Blood Urea Nitrogen 24 H 7-18 MG/DL Creatinine 2.08 H 0.60-1.30 MG/DL Estimat Glomerular Filtration Rate 24 BUN/Creatinine Ratio 12 Glucose Level 137 H 70-105 MG/DL Calcium Level 8.9 8.5-10.1 MG/DL Total Bilirubin 0.3 0.1-1.0 MG/DL Aspartate Amino Transf (AST/SGOT) 17 5-34 U/L Alanine Aminotransferase (ALT/SGPT) 12 0-55 U/L Alkaline Phosphatase 68 40-136 U/L Troponin I < 0.30 <0.30 NG/ML Total Protein 7.4 6.4-8.2 GM/DL Albumin 3.5 3.2-4.5 GM/DL Urine Color HONG H Urine Clarity SLIGHTLY CLOUDY Urine pH 5 5-9 Urine Specific [place] 1.020 1.016-1.022 Urine Protein 3+ H NEGATIVE Urine Glucose (UA) NEGATIVE NEGATIVE Urine Ketones NEGATIVE NEGATIVE Urine Nitrite POSITIVE H NEGATIVE Urine Bilirubin NEGATIVE NEGATIVE Urine Urobilinogen NORMAL NORMAL MG/DL Urine Leukocyte Esterase 3+ H NEGATIVE Urine RBC (Auto) 1+ H NEGATIVE Urine RBC 2-5 H /HPF Urine WBC >100 H /HPF Urine Crystals NONE /LPF Urine Bacteria LARGE H /HPF Urine Casts NONE /LPF Urine Mucus NEGATIVE /LPF Urine Culture Indicated YES Lactic Acid Level 0.80 0.50-2.00 MMOL/L My Orders Orders - CAROL FLOR Cbc With Automated Diff (02/07/18 22:55) Comprehensive Metabolic Panel (02/07/18 22:55) Lactic Acid Analyzer (02/07/18 22:55) Blood Culture (02/07/18 22:55) Sputum Culture (02/07/18 22:55) Ua Culture If Indicated (02/07/18 22:55) Protime With Inr (02/07/18 22:55) Partial Thromboplastin Time (02/07/18 22:55) Chest 1 View, Ap/Pa Only (02/07/18 22:55) O2 (02/07/18 22:55) Saline Lock/Iv-Start (02/07/18 22:55) Saline Lock/Iv-Start (02/07/18 22:55) Ekg Tracing (02/07/18 22:55) Troponin I (02/07/18 22:55) Cefepime Injection (Maxipime Injection) (02/07/18 23:00) Vital Signs Adult Sepsis Patie Q1H (02/07/18 22:55) Remove Rings In Anticipation O (02/07/18 22:55) Saline Lock/Iv-Start (02/07/18 22:55) Ns Iv 1000 Ml (Sodium Chloride 0.9%) (02/07/18 22:55) Rapid Strep A Screen (02/07/18 22:55) Urine Culture (02/07/18 22:52) Catheter(Urinary) Insert & Ass 03,15 (02/08/18 02:05) Medications Given in ED Current Medications Medications Dose Ordered Sig/Flavio Route Start Time Stop Time Status Last Admin Dose Admin Cefepime HCl 2000 mg/Sodium Chloride 50 ml @ 100 mls/hr ONCE ONCE IV 02/07/18 23:00 02/07/18 23:29 DC 02/07/18 23:26 100 MLS/HR Vital Signs/I&O 02/07/18 02/07/18 02/07/18 02/08/18 22:39 23:00 23:30 00:00 Temp 99.8 99.8 Pulse 85 89 81 81 Resp 16 18 B/P (MAP) 97/53 (68) 89/64 (72) 94/72 (79) 93/64 (74) Pulse Ox 95 95 94 93 O2 Delivery Room Air Room Air Nasal Cannula Nasal Cannula O2 Flow Rate 4.00 4.00 4.00 02/08/18 02/08/18 02/08/18 00:30 01:00 01:40 Temp 99.4 99.3 Pulse 79 76 82 Resp 20 18 B/P (MAP) 131/90 (104) 121/71 (88) 139/77 Pulse Ox 92 94 99 O2 Delivery Nasal Cannula Nasal Cannula O2 Flow Rate 4.00 4.00 4.00 Capillary Refill : Less Than 3 Seconds Blood Pressure Mean: 68 Progress Note : Time: 00:25 Progress Note Sepsis. Septic workup. We'll start her on cefepime for possible urinary tract infection given her concentrated dark urine versus possible pneumonia since she is mildly hypoxic by report. She is on 4 L when she usually uses 2 or 3 L of oxygen by nasal cannula. On this 4 L she is satting in 95-100%. ECG Initial ECG Impression Date: Feb 07, 2018 Initial ECG Impression Time: 23:51 Initial ECG Rate: 81 Initial ECG Rhythm: Normal Sinus Initial ECG Intervals: Normal Initial ECG Impression: Normal, Nonspecific Changes Initial ECG Comparisson: No Previous ECG Available Comment No significant ST elevation or depression Diagnostic Imaging Diagonstic Imaging: Xray Plain Films/CT/US/NM/MRI: chest Comments 1 view chest, technically difficult study due to body habitus. No acute infiltrate seen. Reviewed: Reviewed by Me Departure Communication (Admissions) Time/Spoke to Admitting Phy: 00:45 Dr Galeano; discussed the case, septic shock that is responded to IV fluids very well and plan for Rocephin and ICU care and he agrees. He will see the patient. Impression Primary Impression: Urinary tract infection Qualified Codes: N30.01 - Acute cystitis with hematuria Additional Impressions: Acute kidney injury (nontraumatic) Septic shock Disposition: ADMITTED INPATIENT Condition: Stable Admissions Decision to Admit Reason: Admit from ER (General) Decision to Admit/Date: Feb 08, 2018 Time/Decision to Admit Time: 00:54 Departure-Patient Inst. Referrals: BOBBY RDZ MD (PCP) Primary Care Physician JAQUELINE MURDOCK APRN (Family) Primary Care Physician Copy Copies To 1: BOBBY RDZ MD, TITUS J Feb 07, 2018 23:02
[2018-02-07 23:03] LABS: BASOPHILS % (AUTO) 0 % (0-10); EOSINOPHILS # (AUTO) 0.1 10^3/uL (0.0-0.3); EOSINOPHILS % (AUTO) 1 % (0-10); HEMATOCRIT 37 % (35-52); HEMOGLOBIN 12.7 G/DL (11.5-16.0); LYMPHOCYTES % (AUTO) 24 % (12-44); MEAN CORPUSCULAR HEMOGLOBIN 35 PG (25-34); MEAN CORPUSCULAR HGB CONC 34 G/DL (32-36); MEAN CORPUSCULAR VOLUME 102 FL (80-99); MEAN PLATELET VOLUME 9.4 FL (7.4-10.4); MONOCYTES # (AUTO) 1.2 X 10^3 (0.0-1.0); MONOCYTES % (AUTO) 9 % (0-12); NEUTROPHILS # (AUTO) 8.2 X 10^3 (1.8-7.8); NEUTROPHILS % (AUTO) 66 % (42-75); PLATELET COUNT 248 10^3/uL (130-400); RED BLOOD COUNT 3.62 10^6/uL (4.35-5.85); WHITE BLOOD COUNT 12.5 10^3/uL (4.3-11.0)
[2018-02-07 23:06] LABS: BILIRUBIN,URINE NEGATIVE (NEGATIVE); CLARITY,URINE SLIGHTLY CLOUDY; COLOR,URINE AMBER; GLUCOSE, URINE (UA) NEGATIVE (NEGATIVE); KETONES,URINE NEGATIVE (NEGATIVE); LEUKOCYTE ESTERASE ,URINE 3+ (NEGATIVE); NITRITE,URINE POSITIVE (NEGATIVE); PH,URINE 5 (5-9); PROTEIN,URINE 3+ (NEGATIVE); UROBILINOGEN,URINE NORMAL (NORMAL)
[2018-02-07 23:10] LABS: PROTHROMBIN TIME PATIENT 13.4 SEC (12.2-14.7)
[2018-02-07 23:13] LABS: BACTERIA,URINE LARGE /HPF; WBC,URINE >100 /HPF
[2018-02-07 23:14] LABS: ALANINE AMINOTRANSFERASE 12 U/L (0-55); ALBUMIN 3.5 GM/DL (3.2-4.5); ALKALINE PHOSPHATASE 68 U/L (40-136); BILIRUBIN,TOTAL 0.3 MG/DL (0.1-1.0); BUN/CREATININE RATIO 12; CALCIUM 8.9 MG/DL (8.5-10.1); CARBON DIOXIDE 30 MMOL/L (21-32); CHLORIDE 94 MMOL/L (98-107); CREATININE SERUM 2.08 MG/DL (0.60-1.30); GFR ESTIMATED 24; GLUCOSE 137 MG/DL (70-105); POTASSIUM 5.1 MMOL/L (3.6-5.0); SODIUM 137 MMOL/L (135-145); TOTAL PROTEIN 7.4 GM/DL (6.4-8.2)
[2018-02-07] MEDS: NS IV 1000 ML 1,000 ML IV SCH (23:27)
[2018-02-07 23:30] VITALS: BP 94/72
[2018-02-08] VITALS (28 sets, daily range): BP systolic 84–156; BP diastolic 43–105
[2018-02-08] MEDS: NS IV 1000 ML 1,000 ML IV SCH (00:24)
--- OUTSIDE RECORDS SUMMARY | 2018-02-08 01:23 | XMS REPORT | Clinical Summary ---
Author Author [facility] Address Unknown Phone Unavailable Care Team Providers Care Roll Forming Supervisor Name Role Phone PP Unavailable Allergies No Known Allergies Current Medications Prescription Sig. Disp. Refills Start End Date Status Date oxyCODONE (OXYCONTIN) 40 Take 1 tablet (40 mg 60 tablet 0 12/26/19 Active MG 12 hr total) by mouth every 12 14 tabletIndications: (twelve) hours. Moderate to Severe Indications: Moderate to Chronic Pain Severe Chronic Pain nystatin (NYSTOP) 731503 Apply topically 2 (two) Active UNIT/GM POWD [...] 2009 Vaccine (RZV,Shingrix) (1 of 2 - [facility] 2 Dose Standard) Influenza Vaccine (Season 04/29/2018 Ended) Results Not on filefrom Last 3 Months
--- OUTSIDE RECORDS SUMMARY | 2018-02-08 01:23 | XMS REPORT | Clinical Summary ---
Author Author [facility] Organization [facility] Address Unknown Phone Unavailable Care Team Providers Care Railway Switchman Name Role Phone Kimberly Sood APRN Unavailable [...] in the Health Information Management department at [phone] for further assistance in locating additional records.[facility] Allergies Active Allergy Reactions Severity Noted Date [...]
[2018-02-08] MEDS: 1/2 NS IV SOLUTION 1,000 ML IV SCH ×5 (02:07→21:04)
[2018-02-08] MEDS ORDERED: 1/2 NS IV SOLUTION 1,000 ML IV ONE (02:07)
[2018-02-08] MEDS ORDERED: RT-ALBUTEROL SULF 2.5 MG/3 ML PRE-MIX VIAL INH PRN (03:15)
[2018-02-08 04:18] LABS: BASOPHILS % (AUTO) 0 % (0-10); EOSINOPHILS # (AUTO) 0.1 10^3/uL (0.0-0.3); EOSINOPHILS % (AUTO) 1 % (0-10); HEMATOCRIT 41 % (35-52); HEMOGLOBIN 12.8 G/DL (11.5-16.0); LYMPHOCYTES # (AUTO) 2.2 X 10^3 (1.0-4.0); LYMPHOCYTES % (AUTO) 21 % (12-44); MEAN CORPUSCULAR HEMOGLOBIN 33 PG (25-34); MEAN CORPUSCULAR HGB CONC 31 G/DL (32-36); MEAN CORPUSCULAR VOLUME 105 FL (80-99); MEAN PLATELET VOLUME 9.1 FL (7.4-10.4); MONOCYTES # (AUTO) 1.1 X 10^3 (0.0-1.0); MONOCYTES % (AUTO) 11 % (0-12); NEUTROPHILS % (AUTO) 67 % (42-75); PLATELET COUNT 239 10^3/uL (130-400); RED BLOOD COUNT 3.87 10^6/uL (4.35-5.85); RED CELL DISTRIBUTION WIDTH 13.1 % (10.0-14.5); WHITE BLOOD COUNT 10.4 10^3/uL (4.3-11.0)
[2018-02-08] MEDS ORDERED: ONDANSETRON 4 MG/2 ML (SDV) Z0FRAN IV PRN (04:45)
[2018-02-08 04:47] LABS: CALCIUM 8.5 MG/DL (8.5-10.1); CREATININE SERUM 1.92 MG/DL (0.60-1.30); MAGNESIUM 1.9 MG/DL (1.8-2.4); POTASSIUM 4.8 MMOL/L (3.6-5.0)
[2018-02-08] MEDS ORDERED: NS IV 1000 ML 1,000 ML IV SCH (04:47)
[2018-02-08] MEDS ORDERED: NS IV PRN (05:00)
[2018-02-08] MEDS: NOREPINEPHRINE 4 MG in NS (IVPB) 250 ML IV SCH ×2 (05:04→18:13)
[2018-02-08] MEDS: inSUlin ASPART (NovoLOG) 1 UNIT/0.01 ML (CHARGE PER UNIT) SC SCH ×4 (05:05→21:02)
[2018-02-08] MEDS: VASOPRESSIN INJECTION 20 UNIT in NS (IVPB) 100 ML IV SCH ×3 (05:05→21:27)
[2018-02-08] MEDS ORDERED: POTASSIUM CL 10MEQ/50ML IVPB 50 ML IV SCH (06:00)
[2018-02-08] MEDS ORDERED: KCL 20 MEQ TAB (K-DUR) PO SCH (06:00)
[2018-02-08] MEDS ORDERED: MAGNESIUM 1 GM/100 ML IVPB 100 ML IV SCH (06:00)
[2018-02-08] MEDS: LEVOTHYROXINE 125 MCG (LEVOTHROID) TABLET PO SCH (06:18)
[2018-02-08] MEDS: RT-ALBUTEROL SULF 2.5 MG/3 ML PRE-MIX VIAL INH SCH ×3 (06:33→20:35)
--- NOTE | 2018-02-08 07:47 | History & Physical-Hospitalist ---
History of Present Illness HPI/Chief Complaint Pt is [id number] with a PMH of bipolar disorder, morbid obesity, and recurrent infections, who presented to the ER for feeling poorly and not getting around like normal. She participated very little in history so most history is obtained from the records. She was more somnolent than normal and required sternal rub to arouse. They also noticed that her oxygen saturations were in the 80s. EMS was called and she was transferred here for evaluation. When I asked her what brought her in she said she felt "lousy and wanted Vancomycin." She also states on repeat that she "wants to go to the hospital" even after I told her multiple times she was in the hospital. She denies any other complaints right now. Source: patient Exam Limitations: clinical condition Date Seen 02/08/18 Time Seen by Provider: 07:20 Attending Physician Tacos Galeano MD PCP Jayson Raman MD Referring Physician Date of Admission Feb 08, 2018 at 12:30 am Home Medications & Allergies Home Medications Reviewed patient Home Medication Reconciliation performed by pharmacy medication reconciliations oil bay technician and/or nursing. Patients Allergies have been reviewed. Allergies Allergies Coded Allergies Sulfa (Sulfonamide Antibiotics) (Unverified Allergy, Unknown, 08/14/16) amoxapine (Unverified Allergy, Unknown, 01/23/16) amoxicillin (Unverified Allergy, Unknown, 01/03/16) amphetamine (Unverified Allergy, Unknown, 08/14/16) aripiprazole (Unverified Allergy, Unknown, 01/03/16) bupropion (Unverified Allergy, Unknown, 01/03/16) chlorpromazine (Unverified Allergy, Unknown, 01/03/16) clozapine (Unverified Allergy, Unknown, 01/03/16) dextroamphetamine (Unverified Allergy, Unknown, 01/03/16) dextromethorphan (Unverified Allergy, Unknown, 01/03/16) furosemide (Unverified Allergy, Unknown, 01/03/16) haloperidol (Unverified Allergy, Unknown, 01/03/16) latex (Unverified Allergy, Unknown, 01/03/16) lavender (Lavandula angustifolia) (Unverified Allergy, Unknown, 01/03/16) lithium (Unverified Allergy, Unknown, 01/03/16) loxapine (Unverified Allergy, Unknown, 01/03/16) meperidine (Unverified Allergy, Unknown, 01/03/16) olanzapine (Unverified Allergy, Unknown, 01/03/16) phentermine (Unverified Allergy, Unknown, 01/03/16) risperidone (Unverified Allergy, Unknown, 01/03/16) Past Vqjxkyh-Bwbnas-Agszdh Hx Past Med/Social Hx: Reviewed Nursing Past Med/Soc Hx Patient Social History Employed/Student: unemployed Alcohol Use: Denies Use Recreational Drug Use: No Smoking Status: Former Smoker Former Smoker, Quit: Aug 29, 2016 Type Used: Cigarettes 2nd Hand Smoke Exposure: No Physical Abuse Screen: No Sexual Abuse: No Recent Foreign Travel: No Contact w/other who traveled: No Recent Hopitalizations: No Recent Infectious Disease Expo: No Immunizations Up To Date Tetanus Booster (TDap): Unknown Date of Influenza Vaccine: May 29, 2017 Seasonal Allergies Seasonal Allergies: No Past Medical History Surgeries: Tubal Ligation Currently Using CPAP: No (supposed to but doesn't) Cardiac: Atrial Fibrillation, Heart Attack, Hypertension Neurological: Stroke : No Reproductive: No Sexually Transmitted Disease: No HIV/AIDS: No Menopausal Genitourinary: Renal Failure Gastrointestinal: Abdominal Hernia, Gall Bladder Disease Musculoskeletal: Back Injury Endocrine: Hypothyroidsim Cancer: Skin Psychosocial: Anxiety, PTSD, Bipolar, Depression History of Blood Disorders: No Adverse Reaction to Blood Billy: No Family History Reviewed Nursing Family Hx Patient reports no known family medical history. Heart Disease, Cancer, Cerebral Aneurysm Review of Systems ROS-Unable to Obtain: Pt mentation Constitutional: no symptoms reported, weakness EENTM: no symptoms reported Respiratory: no symptoms reported Cardiovascular: no symptoms reported Gastrointestinal: no symptoms reported Genitourinary: no symptoms reported Musculoskeletal: no symptoms reported Skin: no symptoms reported Psychiatric/Neurological: No Symptoms Reported Physical Exam Physical Exam Vital Signs Vital Signs - First Documented 02/07/18 02/08/18 22:39 02:40 Temp 99.8 Pulse 85 Resp 16 B/P (MAP) 97/53 (68) Pulse Ox 95 O2 Delivery Room Air O2 Flow Rate 4.00 FiO2 36 Capillary Refill : Less Than 3 Seconds General Appearance: No Apparent Distress, Obese Respiratory: Lungs Clear (but limited but habitus), No Respiratory Distress Cardiovascular: Regular Rate, Rhythm, No Murmur Gastrointestinal: Normal Bowel Sounds, Non Tender, Soft Extremity: No Calf Tenderness, Swelling Neurologic/Psychiatric: Alert, Disoriented Skin: Other (venous stasis dermatitis noted on bilateral lower extremities) Results Results/Procedures Labs Laboratory Tests 02/07/18 22:44 02/08/18 03:00 02/09/18 03:25 Patient resulted labs reviewed. Imaging: Reviewed Imaging Films, Reviewed Imaging Report Assessment/Plan Admission Diagnosis Severe Sepsis due to UTI Admission Status: Inpatient Order (span 2 midnights) Reason for Inpatient Admission: Severe Sepsis, ICU admission Diagnosis/Problems Diagnosis/Problems (1) Sepsis Status: Resolved Assessment & Plan: Does not meet shock criteria Does meet severe sepsis criteria due UTI and EVA Continue on Rocephin as previous cultures grew e coli and proteus sensitive to Rocephin BPs stable IBW is 63.21kg so 30cc/kg bolus would be 2L which she received in the ER Qualifiers: Sepsis type: sepsis due to unspecified organism Qualified Codes: A41.9 - Sepsis, unspecified organism (2) Urinary tract infection Status: Chronic Assessment & Plan: Await c/s Continue abx as above Has west in place Qualifiers: Urinary tract infection type: acute cystitis Hematuria presence: with hematuria Qualified Codes: N30.01 - Acute cystitis with hematuria (3) Acute kidney injury (nontraumatic) Status: Acute Assessment & Plan: Improving Continue IVF Monitor I/Os ON chronic narcotics Altered mentation was likely due to EVA and build up of narcotics (4) Hypothyroidism Status: Chronic Assessment & Plan: Continue home meds (5) Bipolar disorder Status: Chronic Assessment & Plan: Continue home meds Qualifiers: Active/Remission status: remission status unspecified Qualified Codes: F31.9 - Bipolar disorder, unspecified (6) Prophylactic measure Assessment & Plan: IVF Lovenox Reg Diet Clinical Quality Measures DVT/VTE Risk/Contraindication: Risk Factor Score Per Nursin RFS Level Per Nursing on Admit: 4+=Very High JIM PRITCHARD MD Feb 08, 2018 07:47
[2018-02-08] MEDS: cefTRIAXone 1 GM/NS 50 ML IVPB IV SCH ×2 (08:11)
--- NOTE | 2018-02-08 08:16 | Diagnostic Imaging Report ---
INDICATION: Shortness of breath. COMPARISON: 01/23/2018. FINDINGS: Rightward rotation again challenges interpretation. Heart borders and diaphragms remain visualized. There is slight elevation of the right diaphragm. There is a suboptimal inspiratory expansion of the lungs with some crowding of the central lung markings. Body habitus and rotation is believed to account for the hazy increased density projecting over the left chest. Focal infiltrate is not felt present. IMPRESSION: Given rotation, body habitus, portable technique and suboptimal inspiratory volume, there was no acute appearing abnormality apparent. Dictated by: Dictated on workstation # [id number]
[2018-02-08] MEDS ORDERED: ASPIRIN 81 MG CHEW (CHILDREN'S ASA) PO SCH (09:00)
[2018-02-08] MEDS ORDERED: PANTOPRAZOLE 40 MG/10 ML (PROTONIX) VIAL IV SCH (09:00)
[2018-02-08] MEDS ORDERED: CARI1.5C PO (09:50)
[2018-02-08] MEDS ORDERED: VITS42.53 TP (09:50)
[2018-02-08] MEDS ORDERED: CEFU500T63 PO (09:50)
[2018-02-08] MEDS ORDERED: ONDA4TAB10 PO (09:50)
[2018-02-08] MEDS ORDERED: L. A1TAB10 PO (09:50)
[2018-02-08] MEDS ORDERED: IBUP-1780 PO (09:50)
[2018-02-08] MEDS ORDERED: [UNRECOGNIZED DRUG - SUPPLY] TOP (09:50)
[2018-02-08] MEDS: ACETAMINOPHEN 500 MG TAB (TYLENOL) PO PRN ×2 (09:53→23:22)
[2018-02-08] MEDS ORDERED: MORP15TA PO (10:29)
[2018-02-08] MEDS ORDERED: NON-FORMULARY MEDICATION 1 EA EA (Hyoscyamine Sulfate 0.125 MG) SL PRN (12:00)
[2018-02-08] MEDS ORDERED: MENTHOL 7.5 MG MM PRN (12:00)
[2018-02-08] MEDS ORDERED: NON-FORMULARY MEDICATION 1 EA EA (Ondansetron HCl 4 MG) PO PRN (12:00)
[2018-02-08] MEDS ORDERED: morphine IMMEDIATE RELEASE 15 MG TABLET PO ONE (12:35)
[2018-02-08] MEDS ORDERED: DIVALPROX SPRINKLE 125 MG (DEPAKOTE) CAP ONE (12:35)
[2018-02-08] MEDS ORDERED: LORazepam 0.5 MG (ATIVAN) TABLET ONE (12:35)
[2018-02-08] MEDS: LORazepam 0.5 MG (ATIVAN) TABLET PO SCH ×3 (12:38→21:02)
[2018-02-08] MEDS: morphine IMMEDIATE RELEASE 15 MG TABLET PO SCH ×2 (12:42→19:54)
[2018-02-08] MEDS ORDERED: ONDANSETRON 4 MG (ZOFRAN) ORAL DISSOLVE TAB PO PRN (13:45)
[2018-02-08] MEDS: DIVALPROEX 500 MG DELAYED RELEASE (DEPAKOTE) TAB PO SCH ×2 (13:52→21:02)
[2018-02-08] MEDS: GABAPENTIN 300 MG (NEURONTIN) CAP PO SCH (13:54)
[2018-02-08] MEDS ORDERED: HYOSCYAMINE 0.125 MG (LEVSIN) TAB SL PRN (14:00)
[2018-02-08] MEDS ORDERED: NON-FORMULARY MEDICATION 1 EA EA (Morphine Sulfate 15 MG) PO SCH (14:00)
[2018-02-08] MEDS ORDERED: morphine INJ 4 MG/ML 1 ML (VIAL/SYRINGE) ONE (16:57)
[2018-02-08] MEDS: morphine INJ 4 MG/ML 1 ML (VIAL/SYRINGE) IVP PRN ×2 (17:02→22:35)
[2018-02-08] MEDS: RT-ADVAIR HFA 45/21 MCG PER PUFF IH SCH (20:40)
[2018-02-08] MEDS ORDERED: NON-FORMULARY MEDICATION 1 EA EA (Mirabegron (Myrbetriq) 50 MG) PO SCH (21:00)
[2018-02-08] MEDS ORDERED: NON-FORMULARY MEDICATION 1 EA EA (Pantoprazole Sodium 20 MG) PO SCH (21:00)
[2018-02-08] MEDS ORDERED: NON-FORMULARY MEDICATION 1 EA EA (Fluticasone/Salmeterol (Advair 100-50 Diskus) 1 PUFF) INH SCH (21:00)
[2018-02-08] MEDS: PANTOPRAZOLE 20 MG TABLET (PROTONIX) PO SCH (21:02)
[2018-02-09] MEDS: 1/2 NS IV SOLUTION 1,000 ML IV SCH ×3 (02:14→10:24)
[2018-02-09] MEDS: RT-ALBUTEROL SULF 2.5 MG/3 ML PRE-MIX VIAL INH SCH ×2 (03:00→09:25)
[2018-02-09 03:37] LABS: BASOPHILS % (AUTO) 0 % (0-10); EOSINOPHILS # (AUTO) 0.2 10^3/uL (0.0-0.3); EOSINOPHILS % (AUTO) 2 % (0-10); HEMATOCRIT 37 % (35-52); HEMOGLOBIN 12.1 G/DL (11.5-16.0); LYMPHOCYTES # (AUTO) 1.5 X 10^3 (1.0-4.0); LYMPHOCYTES % (AUTO) 21 % (12-44); MEAN CORPUSCULAR HEMOGLOBIN 34 PG (25-34); MEAN CORPUSCULAR HGB CONC 33 G/DL (32-36); MEAN CORPUSCULAR VOLUME 101 FL (80-99); MEAN PLATELET VOLUME 8.8 FL (7.4-10.4); MONOCYTES # (AUTO) 0.9 X 10^3 (0.0-1.0); MONOCYTES % (AUTO) 12 % (0-12); NEUTROPHILS # (AUTO) 4.9 X 10^3 (1.8-7.8); NEUTROPHILS % (AUTO) 66 % (42-75); PLATELET COUNT 211 10^3/uL (130-400); RED BLOOD COUNT 3.61 10^6/uL (4.35-5.85); RED CELL DISTRIBUTION WIDTH 12.1 % (10.0-14.5); WHITE BLOOD COUNT 7.4 10^3/uL (4.3-11.0)
[2018-02-09 03:59] LABS: ALANINE AMINOTRANSFERASE 14 U/L (0-55); ALBUMIN 3.1 GM/DL (3.2-4.5); ALKALINE PHOSPHATASE 60 U/L (40-136); BILIRUBIN,TOTAL 0.2 MG/DL (0.1-1.0); BUN/CREATININE RATIO 20; CARBON DIOXIDE 29 MMOL/L (21-32); CHLORIDE 100 MMOL/L (98-107); CREATININE SERUM 0.59 MG/DL (0.60-1.30); GFR ESTIMATED > 60; GLUCOSE 179 MG/DL (70-105); MAGNESIUM 1.7 MG/DL (1.8-2.4); PHOSPHORUS 1.9 MG/DL (2.3-4.7); POTASSIUM 4.8 MMOL/L (3.6-5.0); SODIUM 137 MMOL/L (135-145); TOTAL PROTEIN 6.6 GM/DL (6.4-8.2)
[2018-02-09 04:01] VITALS: BP 126/82
[2018-02-09 04:11] LABS: CALCIUM 8.8 MG/DL (8.5-10.1)
[2018-02-09] MEDS: morphine INJ 4 MG/ML 1 ML (VIAL/SYRINGE) IVP PRN ×2 (05:17→11:10)
[2018-02-09] MEDS: inSUlin ASPART (NovoLOG) 1 UNIT/0.01 ML (CHARGE PER UNIT) SC SCH ×2 (06:05→11:10)
[2018-02-09] MEDS: PANTOPRAZOLE 20 MG TABLET (PROTONIX) PO SCH (06:21)
[2018-02-09] MEDS: LEVOTHYROXINE 125 MCG (LEVOTHROID) TABLET PO SCH (06:21)
--- NOTE | 2018-02-09 07:11 | Pulmonary Consultation ---
History of Present Illness History of Present Illness Date of Consultation 02/09/18 07:02 Time Seen by Provider: 07:02 Date of Admission History of Present Illness 57yo with hx of morbid obesity, bipolar, recurrent infections presented to ED secondary to decreased MS/lethargy, confusion. SHe did respond to sternal rub in ED. She was also hypoxic with Sp02 in the 80's. she is currently requiring minimal oxygen. She was dx with UTI and sepsis and admitted to ICU. Hypotension responded to IVF. Pt has recently been on [facility] however she said she quit hospice secondary to being scared. PT said she is suffering and appears to be interested in going back on hospice. PT was transferred to 4th floor yesterday. PT is currently very anxious and crying. RN is getting her something for nausea currently. Allergies and Home Medications Allergies Coded Allergies: Sulfa (Sulfonamide Antibiotics) (Unverified Allergy, Unknown, 08/14/16) amoxapine (Unverified Allergy, Unknown, 01/23/16) amoxicillin (Unverified Allergy, Unknown, 01/03/16) amphetamine (Unverified Allergy, Unknown, 08/14/16) aripiprazole (Unverified Allergy, Unknown, 01/03/16) bupropion (Unverified Allergy, Unknown, 01/03/16) chlorpromazine (Unverified Allergy, Unknown, 01/03/16) clozapine (Unverified Allergy, Unknown, 01/03/16) dextroamphetamine (Unverified Allergy, Unknown, 01/03/16) dextromethorphan (Unverified Allergy, Unknown, 01/03/16) furosemide (Unverified Allergy, Unknown, 01/03/16) haloperidol (Unverified Allergy, Unknown, 01/03/16) latex (Unverified Allergy, Unknown, 01/03/16) lavender (Lavandula angustifolia) (Unverified Allergy, Unknown, 01/03/16) lithium (Unverified Allergy, Unknown, 01/03/16) loxapine (Unverified Allergy, Unknown, 01/03/16) meperidine (Unverified Allergy, Unknown, 01/03/16) olanzapine (Unverified Allergy, Unknown, 01/03/16) phentermine (Unverified Allergy, Unknown, 01/03/16) risperidone (Unverified Allergy, Unknown, 01/03/16) Home Medications Acetaminophen 500 Mg Tablet, 1,000 MG PO Q4H PRN for PAIN/FEVER, (Reported) TAKES 2 (500 MG) TABLETS / NOT TO EXCEED 3GM IN 24 HOURS Albuterol Sulfate 2.5 Mg/3 Ml Vial.neb, 2.5 MG IH Q8H PRN for SHORTNESS OF BREATH, (Reported) Albuterol Sulfate 18 Gm Hfa.aer.ad, 1 PUFF IH Q6H PRN for SHORTNESS OF BREATH, ( Reported) Aspirin 81 Mg Tablet.dr, 81 MG PO DAILY, (Reported) Aspirin 325 Mg Tablet, 325 MG PO EVERY 4-6 HOURS PRN for PAIN-MILD OR TEMPATURE, (Reported) Cariprazine Hydrochloride 1.5 Mg Capsule, 3 MG PO DAILY, (Reported) Cetirizine HCl 10 Mg Tablet, 10 MG PO DAILY, (Reported) Diltiazem HCl 180 Mg Capsule.er, 180 MG PO DAILY, (Reported) HOLD IS SYSTOLIC <100 OR DYSTOLIC <60 Divalproex Sodium 500 Mg Tablet.dr, 500 MG PO TID, (Reported) Duloxetine HCl 60 Mg Capsule.dr, 60 MG PO DAILY, (Reported) TAKES IN CONJUNCTION WITH DULOXETINE 30MG FOR A TOTAL DOSE OF 90MG DAILY Duloxetine HCl 30 Mg Capsule.dr, 30 MG PO DAILY, (Reported) TAKES IN CONJUNCTION WITH DULOXETINE 60MG FOR A TOTAL DOSE OF 90MG DAILY Ferrous Sulfate 325 Mg Tablet, 325 MG PO TID, (Reported) Fluticasone Propionate 16 Gm Ball.susp, 2 SPRAYS NS DAILY, (Reported) Fluticasone/Salmeterol 1 Each Blst.w.dev, 1 PUFF INH BID, (Reported) Gabapentin 300 Mg Capsule, 600 MG PO HS, (Reported) TAKES 2 (300MG) CAPSULES Gabapentin 300 Mg Capsule, 300 MG PO 0800,1400, (Reported) Guaifenesin 600 Mg Tab.er.12h, 600 MG PO Q12H PRN for COUGH, (Reported) Hyoscyamine Sulfate 0.125 Mg Tab.subl, 0.125 MG SL EVERY 2 HOURS PRN for EXCESSIVE SECRETIONS, (Reported) Ibuprofen 800 Mg Tablet, 800 MG PO Q8H PRN for PAIN-MILD, (Reported) Isosorbide Mononitrate 60 Mg Tab, 60 MG PO DAILY, (Reported) L. Acidophilus/L.bulgaricus 1 Each Tablet, 1 TAB PO DAILY, (Reported) Levothyroxine Sodium 125 Mcg Tablet, 125 MCG PO DAILY, (Reported) Lorazepam 0.5 Mg Tablet, 0.5 MG PO QID, (Reported) Mag Hydrox/Al Hydrox/Simeth 30 Ml Oral.susp, 30 ML PO Q4H PRN for INDIGESTION, ( Reported) Magnesium Citrate 296 Ml Solution, 140 ML PO Q8H PRN for CONSTIPATION-9TH LINE, (Reported) Magnesium Hydroxide 400 Mg/5 Ml Oral.susp, 30 ML PO DAILY PRN for CONSTIPATION- 7TH LINE, (Reported) Menthol 7.5 Mg Lozenge, 7.5 MG MM Q4H PRN for COUGH, (Reported) Methyl Salicylate/Menthol 113 Gm Cream..g., TP Q4H PRN for PAIN, (Reported) Mirabegron 50 Mg Tab.er.24h, 50 MG PO HS, (Reported) Morphine Sulfate 30 Mg Tablet.er, 30 MG PO DAILY, (Reported) Morphine Sulfate 15 Mg Tablet, 15 MG PO 1400,2000, (Reported) Multivitamin 1 Each Tablet, 1 TAB PO DAILY, (Reported) Ondansetron HCl 4 Mg Tablet, 4 MG PO Q8H PRN for NAUSEA/VOMITING-1ST LINE, ( Reported) Pantoprazole Sodium 20 Mg Tablet.dr, 20 MG PO BID, (Reported) Polyethylene Glycol 3350 17 Gm Powd.pack, 17 GM PO DAILY, (Reported) Potassium Chloride 20 Meq Tab.er.prt, 20 MEQ PO DAILY, (Reported) Torsemide 10 Mg Tablet, 10 MG PO DAILY, (Reported) Vits A and D/White Pet/Lanolin 42.5 Gm Oint...g., TP BID, (Reported) [Interdry Ag Textile] , TOP DAILY, (Reported) Past Lfvrjay-Lontqj-Alythz Hx Past Med/Social Hx: Reviewed Nursing Past Med/Soc Hx Patient Social History Alcohol Use: Denies Use Recreational Drug Use: No Smoking Status: Former Smoker Type Used: Cigarettes Former Smoker, Quit: Aug 29, 2016 2nd Hand Smoke Exposure: No Recent Foreign Travel: No Contact w/Someone Who Travel: No Recent Infectious Disease Expo: No Recent Hopitalizations: No Physical Abuse: No Sexual Abuse: No Immunizations Up To Date Tetanus Booster (TDap): Unknown Date of Influenza Vaccine: May 29, 2017 Seasonal Allergies Seasonal Allergies: No Past Medical History Surgeries: Yes (cervix) Tubal Ligation Respiratory: Yes Asthma, COPD Currently Using CPAP: No (supposed to but doesn't) Cardiac: Yes Atrial Fibrillation, Heart Attack, Hypertension Neurological: No Stroke : No Reproductive Disorders: No 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 Heart Disease, Cancer, Cerebral Aneurysm Review of Systems Time Seen by Provider: 08:23 Constitutional: Fever, Chills, Sweats, Weakness Eyes: No: Pain, Vision change, Conjunctivae inflammation, Eyelid inflammation, Other, Redness ENT: Nose congestion; No: Ear pain, Ear discharge, Nose pain, Nose discharge, Mouth pain, Mouth swelling, Throat pain, Throat swelling, Other Respiratory: Cough, Shortness of breath, SOB with excertion, Wheezing, Sputum Cardiovascular: Paroxysmal Noc. Dyspnea; No: Chest Pain, Palpitations, Orthopnea, Edema, Lt Headedness, Other Gastrointestinal: Nausea; No: Vomiting Genitourinary: Dysuria, Frequency Neurological: Weakness Exam Exam Vital Signs Date Time Temp Pulse Resp B/P (MAP) Pulse Ox O2 Delivery O2 Flow Rate FiO2 02/09/18 04:01 97.6 77 22 126/82 (97) 98 Nasal Cannula 3.00 02/09/18 04:00 94 Nasal Cannula 3.00 02/09/18 03:00 94 Nasal Cannula 3.00 02/09/18 01:00 101 02/09/18 00:00 94 Nasal Cannula 3.00 02/08/18 23:00 100 16 124/85 (98) 94 Nasal Cannula 3.00 02/08/18 22:00 109 14 113/94 (100) 95 Nasal Cannula 3.00 02/08/18 21:00 102 155/98 (117) 97 Nasal Cannula 3.00 02/08/18 20:40 Nasal Cannula 3.00 02/08/18 20:35 95 Nasal Cannula 3.00 02/08/18 20:00 95 Nasal Cannula 3.00 02/08/18 20:00 105 146/87 (106) 95 Nasal Cannula 3.00 02/08/18 20:00 97.2 02/08/18 19:00 105 126/83 (97) 95 Nasal Cannula 3.00 02/08/18 19:00 105 02/08/18 18:00 105 14 109/56 (73) 92 Nasal Cannula 02/08/18 17:05 105 20 106/43 (64) 93 Nasal Cannula 02/08/18 16:05 128/101 (110) 02/08/18 16:00 97.0 02/08/18 16:00 96 Nasal Cannula 4.50 02/08/18 16:00 105 22 125/68 (87) 95 Nasal Cannula 02/08/18 15:00 99 20 94 Nasal Cannula 02/08/18 14:46 96 Nasal Cannula 3.00 02/08/18 14:00 103 18 97 Nasal Cannula 02/08/18 13:00 103 02/08/18 13:00 107 20 84/ 96 Nasal Cannula 02/08/18 12:05 105 20 129/90 (103) 95 Nasal Cannula 4.50 02/08/18 12:00 97.3 02/08/18 12:00 96 Nasal Cannula 4.50 02/08/18 11:00 108 18 123/105 (111) 85 Nasal Cannula 4.50 02/08/18 10:00 112 22 156/69 (98) 93 Nasal Cannula 4.50 02/08/18 09:00 113 10 93 Nasal Cannula 4.50 02/08/18 08:00 96 Nasal Cannula 4.50 02/08/18 08:00 99.1 112 16 94/60 (71) 94 Nasal Cannula 4.50 I & O 02/09/18 07:00 Intake Total 4480 ml Output Total 2400 ml Balance 2080 ml General Appearance: No Apparent Distress, Obese HEENT: PERRL/EOMI, TMs Normal, Normal ENT Inspection; No Moist Mucous Membranes Neck: Full Range of Motion, Normal Inspection, Non Tender Respiratory: Lungs Clear (but limited but habitus), No Respiratory Distress Cardiovascular: Regular Rate, Rhythm, No Murmur Capillary Refill: Less Than 3 Seconds Peripheral Pulses: 2+ Radial Pulses (R), 2+ Radial Pulses (L) Gastrointestinal: normal bowel sounds, non tender, soft, no organomegaly Extremity: Normal Capillary Refill, Normal Inspection, No Calf Tenderness, Swelling Neurologic/Psychiatric: Alert, Oriented x3, Disoriented Skin: Normal Color, Warm/Dry, Other (venous stasis dermatitis noted on bilateral lower extremities) Lymphatic: No Adenopathy Results Lab Laboratory Tests 02/07/18 22:44 02/08/18 03:00 02/09/18 03:25 Assessment/Plan Assessment/Plan UTI with sepsis -rocephin Morbid obesity r/o OHS -Check ABG Psychosis/Bipolar EVA -Monitor -IVF hx of hypothyroid Bipolar hx hx of being on hospice -PT is interested in going back on hospice. I discussed patient with Dr. Ferguson and she is going to attempt to discharge patient today with possible hospice. I am going to sign off for now. Please call with any questions or concerns. 254 SHAHLA FLORES DO Feb 09, 2018 07:11
[2018-02-09] MEDS: DIVALPROEX 500 MG DELAYED RELEASE (DEPAKOTE) TAB PO SCH ×2 (07:33→12:03)
[2018-02-09] MEDS: morphine ER 30 MG (MS CONTIN) TAB PO SCH ×2 (07:34→07:36)
[2018-02-09] MEDS: GABAPENTIN 300 MG (NEURONTIN) CAP PO SCH ×2 (07:34→13:33)
[2018-02-09] MEDS: LORazepam 0.5 MG (ATIVAN) TABLET PO SCH ×2 (07:34→11:59)
[2018-02-09] MEDS: cefTRIAXone 1 GM/NS 50 ML IVPB IV SCH ×2 (07:35)
[2018-02-09] MEDS ORDERED: FLUTICASONE NASAL SPRAY (FLONASE) 16 GM BTL NS SCH (09:00)
[2018-02-09] MEDS ORDERED: NON-FORMULARY MEDICATION 1 EA EA (Cetirizine HCl 10 MG) PO SCH (09:00)
[2018-02-09] MEDS ORDERED: NON-FORMULARY MEDICATION 1 EA EA (Duloxetine HCl 60 MG) PO SCH (09:00)
[2018-02-09] MEDS ORDERED: ASPIRIN E.C. 81 MG (ECOTRIN) TAB PO SCH (09:00)
[2018-02-09] MEDS ORDERED: LEVOTHYROXINE 125 MCG (LEVOTHROID) TABLET PO SCH (09:00)
[2018-02-09] MEDS ORDERED: NON-FORMULARY MEDICATION 1 EA EA (Cariprazine Hydrochloride (Vraylar) 3 MG) PO SCH (09:00)
[2018-02-09] MEDS ORDERED: LORATADINE (CLARITIN) 10 MG TAB PO SCH (09:00)
[2018-02-09] MEDS ORDERED: ISOSORBIDE MONONITRATE 60 MG (IMDUR) TAB PO SCH (09:00)
[2018-02-09] MEDS ORDERED: DILTIAZEM 180 MG (CARDIZEM CD) CAP PO SCH (09:00)
[2018-02-09] MEDS ORDERED: LACTOBACILLUS Acidoph/Bulgar (LACTINEX/FLORANEX) TAB PO SCH (09:00)
[2018-02-09] MEDS ORDERED: NON-FORMULARY MEDICATION 1 EA EA (Diltiazem HCl (Diltiazem ER) 180 MG) PO SCH (09:00)
[2018-02-09] MEDS ORDERED: DULoxetine 30 MG (CYMBALTA) CAP PO SCH ×2 (09:00)
[2018-02-09] MEDS: RT-ADVAIR HFA 45/21 MCG PER PUFF IH SCH (09:25)
[2018-02-09] MEDS ORDERED: CEFD300C3 PO (10:42)
--- NOTE | 2018-02-09 10:49 | Discharge Inst-Simple/Standard ---
Discharge Inst-Standard Discharge Medications New, Converted or Re-Newed RX: Other Patient Instructions/Follow Up Plan of Care/Instructions/FU: Please continue to take your medications as written. Please follow up with Dr Raman. Activity as Tolerated: Yes Discharge Diet: No Restrictions Return to The Hospital For: Worsening confusion, chest pain, if you feel you are getting worse. Planned Outpatient Orders/Ref. Hospice Consult- patient selected [facility] Indicated: Yes JIM PRITCHARD MD Feb 09, 2018 10:49
--- NOTE | 2018-02-09 10:53 | Discharge Summary-Hospitalist ---
Diagnosis/Chief Complaint Date of Admission Feb 08, 2018 at 00:30 Date of Discharge Discharge Date: Feb 09, 2018 Admission Diagnosis Severe Sepsis due to UTI Discharge Diagnosis (1) Sepsis Status: Resolved Assessment & Plan: Reviewed previous cultures that have grown E coli and Proteus and both sensitive to Rocephin Will switch to Omnicef per those sensitivities Sepsis resolved EVA resolved (2) Urinary tract infection Status: Chronic Assessment & Plan: GNR on culture Continue abx as above per previous c/s and response to current therapy (3) Acute kidney injury (nontraumatic) Status: Acute Assessment & Plan: Resolved (4) Hypothyroidism Status: Chronic Assessment & Plan: Continue home supplement (5) Bipolar disorder Status: Chronic Assessment & Plan: Continue home meds Discharge Summary Procedures/Consulations Dr Ashlyn Stahl Discharge Physical Exam Allergies: Coded Allergies: Sulfa (Sulfonamide Antibiotics) (Unverified Allergy, Unknown, 08/14/16) amoxapine (Unverified Allergy, Unknown, 01/23/16) amoxicillin (Unverified Allergy, Unknown, 01/03/16) amphetamine (Unverified Allergy, Unknown, 08/14/16) aripiprazole (Unverified Allergy, Unknown, 01/03/16) bupropion (Unverified Allergy, Unknown, 01/03/16) chlorpromazine (Unverified Allergy, Unknown, 01/03/16) clozapine (Unverified Allergy, Unknown, 01/03/16) dextroamphetamine (Unverified Allergy, Unknown, 01/03/16) dextromethorphan (Unverified Allergy, Unknown, 01/03/16) furosemide (Unverified Allergy, Unknown, 01/03/16) haloperidol (Unverified Allergy, Unknown, 01/03/16) latex (Unverified Allergy, Unknown, 01/03/16) lavender (Lavandula angustifolia) (Unverified Allergy, Unknown, 01/03/16) lithium (Unverified Allergy, Unknown, 01/03/16) loxapine (Unverified Allergy, Unknown, 01/03/16) meperidine (Unverified Allergy, Unknown, 01/03/16) olanzapine (Unverified Allergy, Unknown, 01/03/16) phentermine (Unverified Allergy, Unknown, 01/03/16) risperidone (Unverified Allergy, Unknown, 01/03/16) Vitals & I&Os Vital Signs Date Time Temp Pulse Resp B/P (MAP) Pulse Ox O2 Delivery O2 Flow Rate FiO2 02/09/18 09:29 Nasal Cannula 3.00 02/09/18 09:26 95 02/09/18 07:50 75 02/09/18 04:01 97.6 22 126/82 (97) 02/08/18 02:40 36 General Appearance: Alert Respiratory: Clear to Auscultation Cardiovascular: Regular Rate Hospital Course Pt was admitted due to severe sepsis from UTI. She responded well to therapy and was transitioned to oral antibiotics. She requested information on hospice as well as she had previously been enrolled but was unsure of the details of her discharge. She requested Dr Killian to be her hospice physician and request [facility] as she had been on it with them before. I called and spoke with Karyna at [facility] who will arrange for meeting with her at the group home. I also discussed this plan with Dr Killian. Labs (last 24 hrs) Laboratory Tests 02/08/18 11:39: Glucometer 157H 02/08/18 15:39: Glucometer 209H 02/08/18 20:12: Glucometer 197H 02/09/18 03:25: White Blood Count 7.4, Red Blood Count 3.61L, Hemoglobin 12.1, Hematocrit 37, Mean Corpuscular Volume 101H, Mean Corpuscular Hemoglobin 34, Mean Corpuscular Hemoglobin Concent 33, Red Cell Distribution Width 12.1, Platelet Count 211, Mean Platelet Volume 8.8, Neutrophils (%) (Auto) 66, Lymphocytes (%) (Auto) 21, Monocytes (%) (Auto) 12, Eosinophils (%) (Auto) 2, Basophils (%) (Auto) 0, Neutrophils # (Auto) 4.9, Lymphocytes # (Auto) 1.5, Monocytes # (Auto) 0.9, Eosinophils # (Auto) 0.2, Basophils # (Auto) 0.0, Sodium Level 137, Potassium Level 4.8, Chloride Level 100, Carbon Dioxide Level 29, Anion Gap 8, Blood Urea Nitrogen 12, Creatinine 0.59L, Estimat Glomerular Filtration Rate > 60, BUN/ Creatinine Ratio 20, Glucose Level 179H, Calcium Level 8.8, Phosphorus Level 1.9L, Magnesium Level 1.7L, Total Bilirubin 0.2, Aspartate Amino Transf (AST/ SGOT) 15, Alanine Aminotransferase (ALT/SGPT) 14, Alkaline Phosphatase 60, Total Protein 6.6, Albumin 3.1L 02/09/18 05:21: Glucometer 132H 02/09/18 11:05: Glucometer 184H Microbiology 02/07/18 Blood Culture - Preliminary, Resulted No growth 02/08/18 MRSA Screen - Final, Complete MRSA not isolated 02/07/18 Urine Culture - Preliminary, Resulted Gram Negative Clement Patient resulted labs reviewed. Pending Labs Laboratory Tests 02/09/18 03:25: White Blood Count 7.4, Red Blood Count 3.61, Hemoglobin 12.1, Hematocrit 37, Mean Corpuscular Volume 101, Mean Corpuscular Hemoglobin 34, Mean Corpuscular Hemoglobin Concent 33, Red Cell Distribution Width 12.1, Platelet Count 211, Mean Platelet Volume 8.8, Neutrophils (%) (Auto) 66, Lymphocytes (%) (Auto) 21, Monocytes (%) (Auto) 12, Eosinophils (%) (Auto) 2, Basophils (%) (Auto) 0, Neutrophils # (Auto) 4.9, Lymphocytes # (Auto) 1.5, Monocytes # (Auto) 0.9, Eosinophils # (Auto) 0.2, Basophils # (Auto) 0.0, Sodium Level 137, Potassium Level 4.8, Chloride Level 100, Carbon Dioxide Level 29, Anion Gap 8, Blood Urea Nitrogen 12, Creatinine 0.59, Estimat Glomerular Filtration Rate > 60, BUN/ Creatinine Ratio 20, Glucose Level 179, Calcium Level 8.8, Phosphorus Level 1.9 , Magnesium Level 1.7, Total Bilirubin 0.2, Aspartate Amino Transf (AST/SGOT) 15 , Alanine Aminotransferase (ALT/SGPT) 14, Alkaline Phosphatase 60, Total Protein 6.6, Albumin 3.1 02/09/18 05:21: Glucometer 132 02/09/18 11:05: Glucometer 184 Imaging: Reviewed Imaging Films, Reviewed Imaging Report Discussion & Recommendations Discharge Planning: >30 minutes discharge planning Discharge Home Medications: Active Scripts Active Cefdinir 300 Mg Capsule 300 Mg PO BID Reported Morphine Sulfate 15 Mg Tablet 15 Mg PO 1400,2000 Vraylar (Cariprazine Hydrochloride) 1.5 Mg Capsule 3 Mg PO DAILY Ondansetron HCl 4 Mg Tablet 4 Mg PO Q8H PRN [Interdry Ag Textile] TOP DAILY Lactobacillus Tablet (L. Acidophilus/L.bulgaricus) 1 Each Tablet 1 Tab PO DAILY A and D Ointment (Vits A and D/White Pet/Lanolin) 42.5 Gm Oint...g. TP BID Ibuprofen 800 Mg Tablet 800 Mg PO Q8H PRN Divalproex Sodium 500 Mg Tablet.dr 500 Mg PO TID Pantoprazole Sodium 20 Mg Tablet.dr 20 Mg PO BID Gabapentin 300 Mg Capsule 300 Mg PO 0800,1400 Levothyroxine Sodium 125 Mcg Tablet 125 Mcg PO DAILY Torsemide 10 Mg Tablet 10 Mg PO DAILY Duloxetine HCl 30 Mg Capsule.dr 30 Mg PO DAILY TAKES IN CONJUNCTION WITH DULOXETINE 60MG FOR A TOTAL DOSE OF 90MG DAILY Duloxetine HCl 60 Mg Capsule.dr 60 Mg PO DAILY TAKES IN CONJUNCTION WITH DULOXETINE 30MG FOR A TOTAL DOSE OF 90MG DAILY Diltiazem ER (Diltiazem HCl) 180 Mg Capsule.er 180 Mg PO DAILY HOLD IS SYSTOLIC <100 OR DYSTOLIC <60 Ventolin Hfa (Albuterol Sulfate) 18 Gm Hfa.aer.ad 1 Puff IH Q6H PRN Guaifenesin ER (Guaifenesin) 600 Mg Tab.er.12h 600 Mg PO Q12H PRN Magnesium Citrate 296 Ml Solution 140 Ml PO Q8H PRN Hyoscyamine Sulfate 0.125 Mg Tab.subl 0.125 Mg SL EVERY 2 HOURS PRN [place] (Menthol) 7.5 Mg Lozenge 7.5 Mg MM Q4H PRN Aspirin 325 Mg Tablet 325 Mg PO EVERY 4-6 HOURS PRN Albuterol Sulfate 2.5 Mg/3 Ml Vial.neb 2.5 Mg IH Q8H PRN Lorazepam 0.5 Mg Tablet 0.5 Mg PO QID Muscle Rub Cream (Methyl Salicylate/Menthol) 113 Gm Cream..g. TP Q4H PRN Aspirin EC (Aspirin) 81 Mg Tablet.dr 81 Mg PO DAILY Mylanta Suspension (Al Hydrox/Mg Hydrox/Simethicone) 30 Ml Oral.susp 30 Ml PO Q4H PRN Multi-Vitamin Daily (Multivitamin) 1 Each Tablet 1 Tab PO DAILY Fluticasone Propionate 16 Gm [place].susp 2 Sprays NS DAILY Feosol (Ferrous Sulfate) 325 Mg Tablet 325 Mg PO TID Morphine Sulfate ER (Morphine Sulfate) 30 Mg Tablet.er 30 Mg PO DAILY Acetaminophen Extra Strength (Acetaminophen) 500 Mg Tablet 1,000 Mg PO Q4H PRN TAKES 2 (500 MG) TABLETS / NOT TO EXCEED 3GM IN 24 HOURS Gabapentin 300 Mg Capsule 600 Mg PO HS TAKES 2 (300MG) CAPSULES Myrbetriq (Mirabegron) 50 Mg Tab.er.24h 50 Mg PO HS Milk of Magnesia (Magnesium Hydroxide) 400 Mg/5 Ml Oral.susp 30 Ml PO DAILY PRN Advair 100-50 Diskus (Fluticasone/Salmeterol) 1 Each Blst.w.dev 1 Puff INH BID Cetirizine HCl 10 Mg Tablet 10 Mg PO DAILY Potassium Chloride 20 Meq Tab.er.prt 20 Meq PO DAILY Miralax (Polyethylene Glycol 3350) 17 Gm Powd.pack 17 Gm PO DAILY Isosorbide Mononitrate ER (Isosorbide Mononitrate) 60 Mg Tab 60 Mg PO DAILY Instructions to patient/family Please see electronic discharge instructions given to patient. Clinical Quality Measures DVT/VTE Risk/Contraindication: Risk Factor Score Per Nursin RFS Level Per Nursing on Admit: 4+=Very High Copy Copies To 1: BOBBY RDZ MD Problem Qualifiers (1) Sepsis: Sepsis type: sepsis due to unspecified organism Qualified Codes: A41.9 - Sepsis, unspecified organism (2) Urinary tract infection: Urinary tract infection type: acute cystitis Hematuria presence: with hematuria Qualified Codes: N30.01 - Acute cystitis with hematuria (3) Bipolar disorder: Active/Remission status: remission status unspecified Qualified Codes: F31.9 - Bipolar disorder, unspecified JIM PRITCHARD MD Feb 09, 2018 10:53 am
[2018-02-09] MEDS: morphine IMMEDIATE RELEASE 15 MG TABLET PO SCH (13:33)
[2018-02-09 14:30] VITALS: BP 126/82
== END 2018-02-09 14:30 | disposition hospice, inpatient (51) | DRG 872 ==
LOC: EDUNIT# 22:34 → ER 22:35 → ICU 02-08 00:30 → 4TH 02-08 22:55
PROVIDERS: ADMIT Internal Medicine; ATTEND Internal Medicine
DX: A41.9 Sepsis, unspecified organism (principal); N30.01 Acute cystitis with hematuria; N17.9 Acute kidney failure, unspecified; Z68.44 Body mass index [BMI] 60.0-69.9, adult; R65.20 Severe sepsis without septic shock; E66.01 Morbid (severe) obesity due to excess calories; F17.210 Nicotine dependence, cigarettes, uncomplicated; J44.9 Chronic obstructive pulmonary disease, unspecified; I48.91 Unspecified atrial fibrillation; I10 Essential (primary) hypertension; E03.9 Hypothyroidism, unspecified; R41.82 Altered mental status, unspecified; T40.605A Adverse effect of unspecified narcotics, initial encounter; M48.00 Spinal stenosis, site unspecified; F41.9 Anxiety disorder, unspecified; F32.9 Major depressive disorder, single episode, unspecified; F43.10 Post-traumatic stress disorder, unspecified; F31.9 Bipolar disorder, unspecified; I25.2 Old myocardial infarction; Z86.73 Personal history of transient ischemic attack (TIA), and cerebral infarction without residual deficits; Z86.79 Personal history of other diseases of the circulatory system
CPT/HCPCS: 36415; 71045; 80048; 80053; 81000; 82962; 83605; 83735; 84100; 84484; 85025; 85610; 85730; 87040; 87077; 87081; 87088; 87186; 93005; 94640; 94760; 96361; 96365